=== PATIENT | male | born 1970 | race Caucasian/White ===

== ENCOUNTER 2019-06-18 04:06 | Emergency (ER) | payer OTHER ==
[2019-06-18 04:15] VITALS: BP 96/67; PULSE 64; TEMP 97.5; BMI 25.8
[2019-06-18] MEDS ORDERED: FOLIC ACID INJECTION - 1 MG, THIAMINE HCL 100 MG, MULTIVIT INJECTION ADULT 10 ML in SOD... IVPB ONE (04:49)
--- NOTE | 2019-06-18 05:01 | PDOC ---
History of Present Illness - General Chief Complaint: Alcohol intoxication Stated Complaint: INTOX Time Seen by Provider: 06/18/19 04:34 History Source: Patient Exam Limitations: No Limitations - History of Present Illness Initial Comments: 06/18/19 05:36 HPI: 48M PMH ETOH abuse, PTSD, MDD, Anxiety, Schizophrenia presenting to ED for etoh detox. Patient states he drinks about 2 pints of vodka per day for "more than a year." His last drink was 2 hours ago. Endorses K2 use tonight. Patient states he has hand tremors, nausea, headache, and mild substernal chest pain. Denies other drug use. Denies AVH/SI/HI. Requesting etoh detox and psychiatry services. PMH as above, chronic LBP MEDS: "psych meds" patient unable to name meds NKDA No PCP Homeless Past History - Past Medical History Allergies/Adverse Reactions: Allergies Allergy/AdvReac Type Severity Reaction Status Date / Time peanut Allergy Verified 06/18/19 18:27 - Psycho Social/Smoking Cessation Hx Smoking History: Current every day smoker Number of Cigarettes Smoked Daily: 8 Information on smoking cessation initiated: No Hx Alcohol Use: Yes Drug/Substance Use Hx: Yes Review of Systems - Review of Systems Able to Perform ROS?: Yes Comments:: 06/18/19 05:37 ROS: CONSTITUTIONAL: Denies F / C HEENT: Endorses headache RESP: Denies SOB, cough, orthopnea, CARNES CARD: Endorses mild substernal cp and palpitations GI: Endorses nausea. Denies V, abdominal pain, inability to tolerate PO PSYCH: Denies AVH/SI/HI NEURO: Denies numbness, tingling, weakness Is the patient limited Khmer proficient: No *Physical Exam - Vital Signs Last Vital Signs Temp Pulse Resp BP Pulse Ox 97.5 F L 64 18 96/67 98 06/18/19 04:11 06/18/19 04:11 06/18/19 04:11 06/18/19 04:11 06/18/19 04:11 - Physical Exam Comments: 06/18/19 05:37 PE: VS reviewed GEN: NAD HEENT: NC/AT, EOMI, PERRLA. CN II-XII intact. No facial asymmetry. Normal voice. No tongue fasiculations. CV: S1/S2, RRR, no m/r/g LUNG: CTAB, no wheezes, crackles, rales, rhonchi. GI: soft, ndnt, +BS, no guarding, no rebound. EXTREMITIES: No obvious deformities of all extremities. SKIN: warm, dry, normal turgor. No diaphoretic skin. PSYCH: No AVH. NEURO: Moving all extremities well. Resting tremor of b/l hands, no asterixis. ED Treatment Course - LABORATORY CBC & Chemistry Diagram: 06/18/19 04:55 06/18/19 04:55 - RADIOLOGY Radiology Studies Ordered: Category Date Time Status CHEST X-RAY PORTABLE* [RAD] Stat Radiology 06/18/19 04:49 Ordered Medical Decision Making - Medical Decision Making 06/18/19 04:51 MDM: 48M PMH etoh, schizophrenia, mdd, ptsd, anxiety requesting etoh detox. Last etoh 2 hours prior @ 2 pints vodka w/ K2. Endorsing mild chest pain. - CBC, CMP, CARDIAC - EKG, CXR - Banana bag [facility] Discharge - Discharge Information Problems reviewed: Yes Clinical Impression/Diagnosis: Alcohol abuse Condition: Stable Disposition: HOME - Admission No - Follow up/Referral - Patient Discharge Instructions Patient Printed Discharge Instructions: DI for Alcohol Abuse Additional Instructions: You were seen and treated in the Emergency Department. Please continue on to [facility] for Detox. We have arranged transportation for you. Return to the ED IMMEDIATELY if you experience any of the following: - seizures, loss of consciousness, coma - chest pain, shortness of breath - vomiting - ANYTHING that concerns you - Post Discharge Activity
[2019-06-18 05:33] LABS: BASO % 0.7 % (0-2.0); EOS % 4.6 % (0-4.5); HEMATOCRIT 44.4 % (35.4-49); HEMOGLOBIN 14.7 GM/dL (11.7-16.9); LYMPH % 20.6 % (8-40); MCH 27.8 pg (25.7-33.7); MCHC 33.1 g/dl (32.0-35.9); MEAN CELL VOLUME 84.1 fl (80-96); MEAN PLT VOLUME 7.9 fl (7.5-11.1); MONO % 7.7 % (3.8-10.2); NEUT % 66.4 % (42.8-82.8); PLATELET COUNT 383 K/MM3 (134-434); RBC 5.27 M/mm3 (4.00-5.60); RDW 17.1 % (11.9-15.9); WHITE BLOOD COUNT 8.1 K/mm3 (4.0-10.0)
[2019-06-18 06:05] LABS: ALBUMIN 3.8 g/dl (3.4-5.0); ALK PHOS 129 U/L (45-117); ANION GAP 5 MMOL/L (8-16); BILIRUBIN,TOTAL 0.4 mg/dL (0.2-1); BLOOD UREA NITROGEN 16.6 mg/dL (7-18); CALCIUM 9.6 mg/dL (8.5-10.1); CHLORIDE 104 mmol/L (98-107); CO2 30 mmol/L (21-32); CREATININE 1.1 mg/dL (0.55-1.3); GLUCOSE,RANDOM 80 mg/dL (74-106); POTASSIUM 5.5 mmol/L (3.5-5.1); SGOT/AST 24 U/L (15-37); SGPT/ALT 34 U/L (13-61); SODIUM 139 mmol/L (136-145); TOT PROT 6.8 g/dl (6.4-8.2)
--- NOTE | 2019-06-18 08:03 | PDOC ---
Attending Attestation - Resident Resident Name: EfrenJulio - ED Attending Attestation I have performed the following: I have examined & evaluated the patient, The case was reviewed & discussed with the resident, I agree w/resident's findings & plan, Exceptions are as noted - HPI HPI: 06/18/19 08:03 48M PTSD, MDD, schizophrenia, ETOH abuse, here requesting etoh detox. +nausea, -vomiting, +cp, hinojosa. No AVH, no SI, no HI. Endorses K2 and Etoh last night. Denies other toxic habits. - Physicial Exam PE: 06/18/19 08:06 Agree with exam as documented by resident No tongue fasiculation No asterixis - Medical Decision Making 06/18/19 08:08 For etoh detox, f/u labs ekg, cxr [facility] [place]
--- NOTE | 2019-06-18 12:42 | EKG ---
Test Reason : Blood Pressure : / mmHG Vent. Rate : 060 BPM Atrial Rate : 060 BPM P-R Int : 140 ms QRS Dur : 090 ms QT Int : 416 ms P-R-T Axes : 035 042 033 degrees QTc Int : 416 ms NORMAL SINUS RHYTHM NORMAL ECG NO PREVIOUS ECGS AVAILABLE Confirmed by JESSICA PLAZA MD ([id number]) on 06/18/2019 12:41:49 PM Referred By: Confirmed By:JESSICA PLAZA MD
== END 2019-06-18 09:26 | disposition home or self-care (01) ==
LOC: JER 04:06
PROC: 3E033GC Introduction of Other Therapeutic Substance into Peripheral Vein, Percutaneous Approach (ICD-10-PCS; principal; 2019-06-18)
DX: F12.90 Cannabis use, unspecified, uncomplicated (principal); F10.10 Alcohol abuse, uncomplicated; Z91.010 Allergy to peanuts; F43.10 Post-traumatic stress disorder, unspecified; F32.9 Major depressive disorder, single episode, unspecified; F20.9 Schizophrenia, unspecified; F17.210 Nicotine dependence, cigarettes, uncomplicated
CPT/HCPCS: 36415; 71045-TC-FY; 80053; 82550; 82553; 84484; 85025; 93005; 93010; 96374; 99283-25; J7030

== ENCOUNTER 2019-06-18 18:14 | Emergency (ER) | payer OTHER ==
--- NOTE | 2019-06-18 18:25 | PDOC ---
Rapid Medical Evaluation Time Seen by Provider: 06/18/19 18:24 Medical Evaluation: Allergies Allergy/AdvReac Type Severity Reaction Status Date / Time peanut Allergy Verified 06/18/19 04:15 06/18/19 18:24 I have performed a brief in-person evaluation of this patient. The patient presents with a chief complaint of: chest pain which started after using K2 and cocaine half an hour ago. Also wants detox for alcohol, drink 5 pints vodka a day. I have ordered the following: EKG, CXR, labs including cardiac enzymes The patient will proceed to the ED for further evaluation. Discharge Disposition - Diagnosis Chest pain - Referrals - Patient Instructions - Post Discharge Activity
[2019-06-18 18:26] VITALS: BMI 26.6
[2019-06-18 19:17] LABS: BASO % 0.4 % (0-2.0); EOS % 3.9 % (0-4.5); HEMATOCRIT 40.9 % (35.4-49); HEMOGLOBIN 13.3 GM/dL (11.7-16.9); LYMPH % 21.7 % (8-40); MCH 27.5 pg (25.7-33.7); MCHC 32.5 g/dl (32.0-35.9); MEAN CELL VOLUME 84.5 fl (80-96); MEAN PLT VOLUME 8.1 fl (7.5-11.1); MONO % 9.9 % (3.8-10.2); NEUT % 64.1 % (42.8-82.8); PLATELET COUNT 347 K/MM3 (134-434); RBC 4.84 M/mm3 (4.00-5.60); RDW 16.9 % (11.9-15.9); WHITE BLOOD COUNT 7.6 K/mm3 (4.0-10.0)
[2019-06-18] MEDS ORDERED: FAMOTIDINE 20 MG/50 ML IVPB 20 MG in PREMIX 50 IVPB ONE (19:21)
[2019-06-18] MEDS ORDERED: SODIUM CHLORIDE 1,000 ML IV ONE (19:21)
[2019-06-18] MEDS ORDERED: MAG HYDROX/AL HYDROX/SIMETH -MYLANTA- ORAL SUSPENSION PO ONE (19:21)
--- NOTE | 2019-06-18 19:23 | PDOC ---
History of Present Illness - General Chief Complaint: Chest Pain Stated Complaint: SUBSTANCE ABUSE/DETOX Time Seen by Provider: 06/18/19 18:24 History Source: Patient Exam Limitations: No Limitations - History of Present Illness Initial Comments: 06/18/19 20:20 Rhett Auguste is a 48yM w PMHx substance abuse (ETOH, marijuana, cocaine, K2) , PTSD, MDD, anxiety, schizophrenia presenting w chest pain. Had sudden onset midsternal chest and epigastric pain at 5pm, 1hr after taking alcohol and marijuana this afternoon. Also asking for hospital detox. Was seen in the ED this morning after taking alcohol K2 cocaine asking for detox, d/c after negative cardiac workup. Denies fever, cough, SOB, nausea/vomiting, urinary/ bowel movement changes. Past History - Past Medical History Allergies/Adverse Reactions: Allergies Allergy/AdvReac Type Severity Reaction Status Date / Time peanut Allergy Verified 06/18/19 18:27 COPD: No Other medical history: CHRONIC BACK PAIN - Psycho Social/Smoking Cessation Hx Smoking History: Current every day smoker Number of Cigarettes Smoked Daily: 20 Information on smoking cessation initiated: No Hx Alcohol Use: Yes (TODAY) Drug/Substance Use Hx: Yes (TODAY) Review of Systems - Review of Systems Constitutional: No: Chills, Fever HEENTM: No: Eye Pain, Recent change in vision, Nose Pain, Throat Pain, Mouth Pain Respiratory: No: Cough, Shortness of Breath Cardiac (ROS): Yes: Chest Pain. No: Edema, Palpitations, Syncope ABD/GI: No: Abdominal Distended, Constipated, Diarrhea, Nausea, Vomiting : No: Burning, Dysuria, Discharge, Flank Pain, Hematuria Musculoskeletal: No: Back Pain, Joint Pain, Muscle Weakness Integumentary: No: Bruising, Flushing, Lesions Neurological: No: Headache, Seizure, Tingling Psychiatric: No: Anxiety, Depression, Stressors Endocrine: No: Excessive Sweating, Flushing, Intolerance to Cold, Intolerance to Heat Hematologic/Lymphatic: No: Anemia, Blood Clots *Physical Exam - Vital Signs Last Vital Signs Temp Pulse Resp BP Pulse Ox 98.2 F 70 16 90/52 L 97 06/18/19 18:23 06/18/19 18:23 06/18/19 18:23 06/18/19 18:23 06/18/19 18:23 - Physical Exam General Appearance: Yes: Nourished, Appropriately Dressed, Mild Distress HEENT: positive: EOMI, AMARIS, Normal Voice, Hearing Grossly Normal. negative: Scleral Icterus (R), Scleral Icterus (L), Nasal Congestion, Rhinorrhea Respiratory/Chest: positive: Lungs Clear, Normal Breath Sounds. negative: Chest Tender, Respiratory Distress, Crackles, Rales, Rhonchi, Stridor, Wheezing Cardiovascular: positive: Regular Rhythm, Regular Rate, S1, S2. negative: Edema , Murmur Gastrointestinal/Abdominal: positive: Normal Bowel Sounds, Flat, Soft. negative : Tender, Organomegaly Musculoskeletal: negative: CVA Tenderness (R), CVA Tenderness (L) Integumentary: positive: Normal Color Neurologic: positive: chili pepper grinder II-XII NML intact, Fully Oriented, Alert, Normal Mood/ Affect, Normal Response, Responsive. negative: Sensory Deficit, Confused, Disoriented ED Treatment Course - LABORATORY CBC & Chemistry Diagram: 06/18/19 18:45 06/18/19 18:45 - ADDITIONAL ORDERS Additional order review: 06/18/19 18:45 RBC 4.84 MCV 84.5 MCHC 32.5 RDW 16.9 H MPV 8.1 Neutrophils % 64.1 Lymphocytes % 21.7 Monocytes % 9.9 Eosinophils % 3.9 Basophils % 0.4 Medical Decision Making - Medical Decision Making 06/18/19 19:23 Ordered pepcid maalox NS. Pt refused IV insertion and IV meds, only took maalox which resolved pain CXR clear lung delgadillo EKG shows NSR, HR 69, QTc 424, no ST changes CBC CMP lipase normal, neg trop --- Rhett Auguste is a 48yM w PMHx substance abuse (ETOH, marijuana, cocaine, K2) , PTSD, MDD, anxiety, schizophrenia presenting w midsternal chest and epigastric pain likely d/t alcoholic gastritis. No evidence of ACS (neg trop, NSR EKG) or pancreatitis (normal lipase) or pneumonia (clear lungs on CXR) or alcohol withdrawal (not tremulous or GI discomfort). Pt refused IV for 2nd trop and IV meds, only took maalox which resolved pain. D/c home w detox instructions Discharge - Discharge Information Problems reviewed: Yes Clinical Impression/Diagnosis: Alcoholic gastritis Qualifiers: Chronicity: acute Gastritis bleeding: without bleeding Qualified Code(s): K29.20 - Alcoholic gastritis without bleeding Condition: Improved Disposition: HOME - Admission No - Follow up/Referral Referrals: REGGIE CLAY MD [Staff Physician] - - Patient Discharge Instructions Patient Printed Discharge Instructions: DI for Chest Pain Additional Instructions: You were seen for chest pain. Your labs and imaging did not show anything concerning. You were given medication for your pain. Please follow up with the referred primary care doctor and detox places listed below regarding your visit. Do not drink large amounts of alcohol Come back to the ED if you have worsening chest pain, trouble breathing, or vomiting blood. --- Detox Places: [address] [address] [facility] [address] [address] 24 Hour Facility [phone] Directions Located on the corner of [address] [employer]ops [address] Stops Subway Train Lines A, C, B, D, 1 at [facility] N, R, Q at [facility] Bus Lines M57, M31, M11 [facility] [address] [address] Hours of Operation 9 a.m. - 8 p.m. [facility] is a Sub[facility] Abuse Re[facility] Services in [place], [place] Address: [address] [place] [address], [address] Intake Line: [phone] Website: [email or web address] Primary Focus: Substance Abuse Rehab Services Treatment Type: Hospital inpatient, Hospital inpatient detoxification, General Hospital(including [place] [facility]) Treatment Approaches: No information available, please contact the facility directly. [facility] located in [place], [place]. Address: [address] [place] [address] , [id number] - Post Discharge Activity
[2019-06-18] MEDS ORDERED: KETOROLAC TROMETHAMINE 30 MG/1 ML VIAL IVPUSH ONE (19:36)
[2019-06-18] MEDS ORDERED: FAMOTIDINE 20 MG/50 ML IVPB 20 MG/50 ML MG IVPB ONE (19:49)
[2019-06-18] MEDS ORDERED: MAG HYDROX/AL HYDROX/SIMETH 30 ML UNIT-DOSE CUP ONE (19:49)
[2019-06-18] MEDS ORDERED: KETOROLAC TROMETHAMINE 30 MG/1 ML VIAL ONE (19:49)
[2019-06-18 19:50] LABS: ALBUMIN 3.3 g/dl (3.4-5.0); ALK PHOS 117 U/L (45-117); ANION GAP 6 MMOL/L (8-16); BILIRUBIN,TOTAL 0.2 mg/dL (0.2-1); CALCIUM 8.6 mg/dL (8.5-10.1); CHLORIDE 107 mmol/L (98-107); CO2 28 mmol/L (21-32); CREATININE 1.1 mg/dL (0.55-1.3); GLUCOSE,RANDOM 75 mg/dL (74-106); LIPASE 194 U/L (73-393); POTASSIUM 4.6 mmol/L (3.5-5.1); SGOT/AST 22 U/L (15-37); SGPT/ALT 29 U/L (13-61); SODIUM 142 mmol/L (136-145); TOT PROT 6.2 g/dl (6.4-8.2)
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
[2019-06-18 22:26] VITALS: BP 102/58; PULSE 86; TEMP 98.1
--- NOTE | 2019-06-19 20:21 | EKG ---
Test Reason : Blood Pressure : / mmHG Vent. Rate : 069 BPM Atrial Rate : 069 BPM P-R Int : 136 ms QRS Dur : 082 ms QT Int : 396 ms P-R-T Axes : 045 020 028 degrees QTc Int : 424 ms NORMAL SINUS RHYTHM NORMAL ECG WHEN COMPARED WITH ECG OF 18-JUN-2019 06:53, NO SIGNIFICANT CHANGE WAS FOUND Confirmed by MD GALINDO, SEDRICK ([id number]) on 06/19/2019 8:21:11 PM Referred By: Confirmed By:SEDRICK MEDLEY MD
== END 2019-06-18 22:20 | disposition home or self-care (01) ==
LOC: JER 18:14
DX: F10.10 Alcohol abuse, uncomplicated (principal); F12.90 Cannabis use, unspecified, uncomplicated; F20.9 Schizophrenia, unspecified; F43.10 Post-traumatic stress disorder, unspecified; F32.9 Major depressive disorder, single episode, unspecified; F41.9 Anxiety disorder, unspecified; F17.210 Nicotine dependence, cigarettes, uncomplicated; Z91.010 Allergy to peanuts
CPT/HCPCS: 36415; 71045-TC-FY; 80053; 82550; 82553; 83690; 84484; 85025; 93005; 93010; 96374; 99283-25; J7030

== ENCOUNTER 2019-06-23 07:17 | Emergency (ER) | payer OTHER ==
[2019-06-23 07:32] VITALS: TEMP 98; BMI 25.7
[2019-06-23 08:52] LABS: BASO % 0.5 % (0-2.0); EOS % 4.6 % (0-4.5); LYMPH % 21.2 % (8-40); MCH 27.4 pg (25.7-33.7); MCHC 32.5 g/dl (32.0-35.9); MEAN CELL VOLUME 84.5 fl (80-96); MEAN PLT VOLUME 8.2 fl (7.5-11.1); NEUT % 66.7 % (42.8-82.8); PLATELET COUNT 336 K/MM3 (134-434); RBC 5.09 M/mm3 (4.00-5.60); WHITE BLOOD COUNT 7.1 K/mm3 (4.0-10.0)
[2019-06-23 09:14] LABS: INR 1.11 (0.83-1.09); PROTHROMBIN TIME (PATIENT) 13.1 SEC (9.7-13.0)
[2019-06-23 09:28] LABS: ALBUMIN 3.6 g/dl (3.4-5.0); ALK PHOS 109 U/L (45-117); ANION GAP 7 MMOL/L (8-16); BILIRUBIN,TOTAL 0.3 mg/dL (0.2-1); BLOOD UREA NITROGEN 12.2 mg/dL (7-18); CALCIUM 9.3 mg/dL (8.5-10.1); CHLORIDE 106 mmol/L (98-107); CO2 31 mmol/L (21-32); GLUCOSE,RANDOM 71 mg/dL (74-106); POTASSIUM 4.4 mmol/L (3.5-5.1); SGOT/AST 23 U/L (15-37); SGPT/ALT 41 U/L (13-61); SODIUM 143 mmol/L (136-145); TOT PROT 6.6 g/dl (6.4-8.2)
--- NOTE | 2019-06-23 10:03 | CON.PSY ---
Psychiatry Consult Chief Complaint: 48 Yr old Male came to Er from [facility] where he weas evaluated by Psych and discharged. Patient said he was suicidal but no plans. Patient is sleeping in the Bed. awake and responds . Denies any suicid al ideas or plans. - Previous Psychiatric Treatment Outpatient: Less than 6 mos ago Inpatient: Within the last 12 months - Reason for Previous Treatment Reason for Previous Treatment: Conduct Disorder - Allergies Allergies: Allergies Allergy/AdvReac Type Severity Reaction Status Date / Time Fish Containing Products Allergy Verified 06/23/19 07:30 peanut Allergy Verified 06/18/19 18:27 pepper (genus Capsicum) Allergy Verified 06/23/19 07:30 - Current Living Status Usual Living Arrangement: Alone - Current Mental Status Evaluation Appearance: Well Groomed Attitude: Cooperative - Affect Affect: Constrictive Appropriateness: Appropriate to Content - Mood Mood: Euthymic - Speech/Language Expressive: Coherent - Psychomotor Activity Psychomotor Activity: Normal - Thought Process Thought Process: Intact - Thought Content Hallucinations: Absent Delusions: Absent - Self Perception Self Perception: No Impairment - Cognition Attention: Alert Orientation: Time Memory, Immediate Recall: Intact Memory, Short Term: 2/3 Memory, Remote with Promptin/3 - Abstraction Proverb Interpretation: Intact Judgement: Minimally Impaired - Insight Insight: Intact - Impulse Control Impulse Control: Good Control - Suicidal Ideation Suicidal Ideation: No - Homicidal Ideation Homicidal Ideation: No Assessment/Plan 1) No acute Mental illness. 2) d/c from Er. no follow up.
[2019-06-23 11:19] VITALS: BP 133/91; PULSE 83
--- NOTE | 2019-06-23 11:35 | PDOC ---
Documentation entered by Ida Zapata SCRIBE, acting as scribe for Jordan Ribeiro MD. History of Present Illness - General Chief Complaint: Suicidal Stated Complaint: SUICIDAL IDEATIONS, wants detox History Source: Patient Exam Limitations: No Limitations - History of Present Illness Initial Comments: Patient seen and evaluated immediately upon arrival. Patient is a 48-year-old male with history of polysubstance abuse and depression who presents to the ER stating that he is suicidal. Patient states that he feels on the inside like he was hit by a bus but denies any previous attempts. Patient states that he does cocaine and drinks heavily on the regular basis. Patient states that he drank a large amount of alcohol several hours prior to evaluation. Patient also was seen at [facility] and was evaluated by psychiatrist shortly prior to presentation at [facility]. Patient was evaluated and discharged without any restrictions or prescriptions. Past History - Past Medical History Allergies/Adverse Reactions: Allergies Fish Containing Products Allergy (Verified 06/23/19 07:30) peanut Allergy (Verified 06/18/19 18:27) pepper (genus Capsicum) Allergy (Verified 06/23/19 07:30) Home Medications: Ambulatory Orders NK [No Known Home Medication] 06/23/19 - Social History Smoking Status: Current every day smoker Number of Cigarettes Per Day: 20 *Physical Exam - Vital Signs Last Vital Signs Temp Pulse Resp BP Pulse Ox 98 F 89 18 104/58 L 99 06/23/19 07:27 06/23/19 07:27 06/23/19 07:27 06/23/19 07:27 06/23/19 07:27 - Physical Exam Comments: 06/23/19 11:31 REVIEW OF SYSTEMS CONSTITUTIONAL: No fever, no chills, no fatigue EYES: No visual changes ENT: No ear pain, no sore throat CARDIOVASCULAR: No chest pain, no palpitations RESPIRATORY: No cough, no SOB GI: No abdominal pain, no nausea, no vomiting, no constipation, no diarrhea GENITOURINARY: No dysuria, no frequency, no hematuria MUSKULOSKELETAL: No backpain, no joint pain, no myalgias SKIN: No rash NEURO: No headache PSYCH: + depression, suicidal EXAMINATION CONSTITUTIONAL: Patient is sleeping in the ER, easily arousable to verbal stimuli, follows commands; in no apparent distress; + aob HEAD: Normocephalic; atraumatic EYES: PERRL; EOM intact; + conjunctiva injected ENMT: External appears normal; normal oropharynx NECK: Supple; non-tender; no cervical lymphadenopathy CARD: Normal S1, S2; no murmurs, rubs, or gallops RESP: Normal chest excursion with respiration; breath sounds clear and equal bilaterally; no wheezes, rhonchi, or rales ABD: Soft, non-distended; non-tender; no palpable organomegaly, no palpable hernias EXT: Normal ROM in all four extremities; non-tender to palpation; distal pulses intact SKIN: Warm, dry, no rash NEURO: No focal neurological deficiencies. PSYCH: evasive, appropriate mood and effect; no tangential thinking, denies suicidal ideations on exam. Plan - Progress Note Progress Note: 06/23/19 11:34 48-year-old male with history of polysubstance abuse and depression initially presented with suicidal ideations. Patient seen and evaluated by Dr. wagner. psychiatry. Patient cleared for discharge. No acute issues present at this time. Patient wanted a place to stay and sleep as per the patient. Will discharge. - Order(s) Order(s): Orders Medication Instructions Recorded NK [No Known Home Medication] 06/23/19 - Laboratory CBC & Chemistry Diagram: 06/23/19 08:35 06/23/19 08:35 Lab/Micro Results: 06/23/19 06/23/19 06/23/19 08:35 08:35 08:35 PT with INR 13.10 H INR 1.11 H Sodium 143 Potassium 4.4 Chloride 106 Carbon Dioxide 31 Anion Gap 7 L BUN 12.2 Creatinine 1.0 Est GFR (CKD-EPI)AfAm 101.26 Est GFR (CKD-EPI)NonAf 87.37 POC Glucometer Random Glucose 71 L Calcium 9.3 Total Bilirubin 0.3 AST 23 ALT 41 Alkaline Phosphatase 109 Creatine Kinase 138 Troponin I < 0.02 Total Protein 6.6 Albumin 3.6 Salicylates Acetaminophen Alcohol, Quantitative 65.5 H 06/23/19 06/23/19 06/23/19 08:35 08:35 08:04 PT with INR INR Sodium Potassium Chloride Carbon Dioxide Anion Gap BUN Creatinine Est GFR (CKD-EPI)AfAm Est GFR (CKD-EPI)NonAf POC Glucometer 97 Random Glucose Calcium Total Bilirubin AST ALT Alkaline Phosphatase Creatine Kinase Troponin I Total Protein Albumin Salicylates < 1.7 L Acetaminophen <2.0 Alcohol, Quantitative 06/23/19 06/23/19 08:35 08:04 RBC 5.09 MCV 84.5 MCHC 32.5 RDW 17.0 H MPV 8.2 Neutrophils % 66.7 Lymphocytes % 21.2 Monocytes % 7.0 Eosinophils % 4.6 H Basophils % 0.5 POC Glucometer 97 Jordan Ribeiro MD: This documentation has been prepared by the Benny cadet Sammi, SCRIBE, under my direction and personally reviewed by me in its entirety. I confirm that the documentation accurately reflects all work, treatment, procedures, and medical decision making performed by me.
--- NOTE | 2019-06-23 11:37 | PDOC ---
*Physical Exam - Vital Signs Last Vital Signs Temp Pulse Resp BP Pulse Ox 98 F 83 18 133/91 96 06/23/19 07:27 06/23/19 11:18 06/23/19 11:18 06/23/19 11:18 06/23/19 11:18 ED Treatment Course - LABORATORY CBC & Chemistry Diagram: 06/23/19 08:35 06/23/19 08:35 - ADDITIONAL ORDERS Additional order review: Laboratory Results 06/23/19 06/23/19 06/23/19 08:35 08:35 08:35 PT with INR 13.10 H INR 1.11 H Sodium 143 Potassium 4.4 Chloride 106 Carbon Dioxide 31 Anion Gap 7 L BUN 12.2 Creatinine 1.0 Est GFR (CKD-EPI)AfAm 101.26 Est GFR (CKD-EPI)NonAf 87.37 POC Glucometer Random Glucose 71 L Calcium 9.3 Total Bilirubin 0.3 AST 23 ALT 41 Alkaline Phosphatase 109 Creatine Kinase 138 Troponin I < 0.02 Total Protein 6.6 Albumin 3.6 Salicylates Acetaminophen Alcohol, Quantitative 65.5 H 06/23/19 06/23/19 06/23/19 08:35 08:35 08:04 PT with INR INR Sodium Potassium Chloride Carbon Dioxide Anion Gap BUN Creatinine Est GFR (CKD-EPI)AfAm Est GFR (CKD-EPI)NonAf POC Glucometer 97 Random Glucose Calcium Total Bilirubin AST ALT Alkaline Phosphatase Creatine Kinase Troponin I Total Protein Albumin Salicylates < 1.7 L Acetaminophen <2.0 Alcohol, Quantitative 06/23/19 06/23/19 08:35 08:04 RBC 5.09 MCV 84.5 MCHC 32.5 RDW 17.0 H MPV 8.2 Neutrophils % 66.7 Lymphocytes % 21.2 Monocytes % 7.0 Eosinophils % 4.6 H Basophils % 0.5 POC Glucometer 97 Discharge - Discharge Information Problems reviewed: Yes Clinical Impression/Diagnosis: Alcohol abuse, Cocaine abuse Depression Qualifiers: Depression Type: unspecified Qualified Code(s): F32.9 - Major depressive disorder, single episode, unspecified Disposition: HOME - Follow up/Referral Referrals: Yanely Morales MD [Staff Physician] - - Patient Discharge Instructions Patient Printed Discharge Instructions: DI for Depression -- Adult, Substance Use Disorder
== END 2019-06-23 12:40 | disposition home or self-care (01) ==
LOC: JER 07:17
DX: F32.9 Major depressive disorder, single episode, unspecified (principal); F10.10 Alcohol abuse, uncomplicated; F14.90 Cocaine use, unspecified, uncomplicated; Z91.013 Allergy to seafood; Z91.010 Allergy to peanuts; Z91.018 Allergy to other foods
CPT/HCPCS: 36415; 80053; 80307; 82550; 82962; 84484; 85025; 85610; 99282-25

== ENCOUNTER 2019-07-12 08:07 | Inpatient (IN) | payer OTHER ==
[2019-07-12 08:57] VITALS: BMI 30.3
[2019-07-12] MEDS ORDERED: guaiFENesin 200 MG/10 ML 10 ML UNIT-DOSE CUPS PO PRN (10:07)
[2019-07-12] MEDS ORDERED: P-EPHED 60MG/TRIPROLIDI 2.5MG TABLET PO PRN (10:07)
[2019-07-12] MEDS ORDERED: MAGNESIUM HYDROX 2400MG/30ML ORAL SUSPENSION 30 ML CUP PO PRN (10:10)
[2019-07-12] MEDS ORDERED: NICOTINE POLACRILEX 4 MG GUM BC PRN (10:10)
[2019-07-12] MEDS ORDERED: METHOCARBAMOL 500 MG TABLET PO PRN (10:10)
[2019-07-12] MEDS ORDERED: MENTHOL/PHENOL 1 EACH UD MM PRN (10:10)
[2019-07-12] MEDS ORDERED: chlordiazePOXIDE HCL 25 MG CAPSULE PO PRN (10:10)
[2019-07-12] MEDS ORDERED: ACETAMINOPHEN 325 MG TABLET (FP) PO PRN ×2 (10:10)
[2019-07-12] MEDS ORDERED: MAG HYDROX/AL HYDROX/SIMETH 30 ML UNIT-DOSE CUP PO PRN (10:10)
[2019-07-12] MEDS ORDERED: BISMUTH SUBSALICYLATE 524 MG/30 ML UD PO PRN (10:10)
[2019-07-12] MEDS ORDERED: MAGNESIUM CITRATE 300 ML BOTTLE PO PRN (10:10)
[2019-07-12] MEDS ORDERED: IBUPROFEN 400 MG TABLET (FP) PO PRN (10:10)
[2019-07-12] MEDS ORDERED: hydrOXYzine PAMOATE 25 MG CAPSULE (FP) PO PRN ×2 (10:10)
[2019-07-12] MEDS ORDERED: MELATONIN 5 MG TABLETS PO PRN (10:10)
[2019-07-12] MEDS: chlordiazePOXIDE HCL 25 MG CAPSULE PO SCH ×3 (11:37→22:49)
[2019-07-12] MEDS ORDERED: THIAMINE HCL 100 MG TABLET (FP) PO SCH (22:00)
[2019-07-13] MEDS: chlordiazePOXIDE HCL 25 MG CAPSULE PO SCH ×2 (06:14→11:08)
[2019-07-13 09:47] VITALS: BP 119/79; PULSE 86; TEMP 99.1
[2019-07-13] MEDS ORDERED: PRENATAL VITAMINS W/ FOLIC ACID TABLET (FP) PO SCH (10:00)
--- NOTE | 2019-07-13 11:37 | PN ---
[facility] Progress Note Note: Psychiatry Attending's note : First admission to [facility] for this 48 y/o male. Presenting for detoxification treatment. STEPHEN issues : Heroin, cannabis (K2), PCP, crack/cocaine, alcohol, nicotine. Psychiatric co-morbidities : Schizophrenia, PTSD, Bipolar Disorder (self-report) . Mr Auguste is , father of two, homeless, unemployed and deprived of financial assistance. He admits to a history of multiple psychiatric hospitalizations (facilities in [place], [facility]). No recent history of psychiatric OPD care. Patient claims treatment with bupropion, thorazine, clonazepam, trazodone. Has been lost to follow-up for months. " I have not seen a psychiatrist for a long time." Adherence to medications remains highly questionable. Patient got into a verbal altercation with his roommate this morning. Situation escalated. He is heard threatening his roommate with bodily harm. Got louder, more disruptive, argumentative and disorganized. Threatened to destroy property on the unit. Refuses to follow staff redirections. Mr Auguste extended his threats toward staff. Patient stated that staff is against him, that he does not feel " safe " on the unit. Hypervigilant. Not receptive to any measures of de-escalation. Belligerent, agitated, accusatory and intimidating during psychiatric interview. Refused care. Patient ended interview abruptly, dismissed the psychiatrist and left the office. Continued to escalate in the corridors. Yelling and pacing. Mr Auguste is acutely paranoid, refractory to redirections and incoherent. Psychiatrically unstable. Needs a higher level of psychiatric care. Cannot be managed at [facility]. Contact made, via telephone, with tan room supervisor Leanne, at [facility]. Case discussed. Conversion to 2 PC status. 911 services activated. Tylor GRAVES responded. Patient transferred to [facility] ED (psychiatry section). For evaluation and disposition. Discussed with the Multidisciplinary treatment team at [address] [place] [address] ([facility]).
--- NOTE | 2019-07-13 15:12 | PN ---
[facility] Progress Note (SOAP) Subjective: verbal altercation with roommate threatening to kill roommate aggressive poor boundary disorganization paranoid "I have to defend myself" threatening toward staff Objective: 07/13/19 15:10 disorganized incoherent rapid labile mood 07/13/19 15:15 crying episodes feels sad empty and hopeless that "was taking medications" but stop tearful with irritable mood rapid psychomotor agitation alter with retardation burst of energy alter with sad tearful gesture poor ability on self control and poor concentration not able to carry conversation with staff threatening staff verbally stated to kill self without specific plan patient appears clinically under significant distress poor functioning in the detox unit to rule out substance induced psychosis psychiatrist evaluation interdisciplinary team approach [facility] evaluation Assessment: 07/13/19 15:28 benzo withdrawal sx management rule out psychosis NOS Plan: transferred to [facility] for psychiatric evaluation by doctor Ray
[2019-07-14] MEDS ORDERED: chlordiazePOXIDE HCL 25 MG CAPSULE PO SCH (05:00)
[2019-07-15] MEDS ORDERED: chlordiazePOXIDE HCL 10 MG CAPSULE PO PRN
[2019-07-15] MEDS ORDERED: chlordiazePOXIDE HCL 10 MG CAPSULE PO SCH (05:00)
[2019-07-16] MEDS ORDERED: chlordiazePOXIDE HCL 10 MG CAPSULE PO SCH (05:00)
[2019-07-17] MEDS ORDERED: chlordiazePOXIDE HCL 10 MG CAPSULE PO ONE (05:00)
== END 2019-07-13 11:30 | DRG 773 ==
LOC: YASAS 08:07 → Y3N 09:37
PROVIDERS: ADMIT Allergy & Immunology; ATTEND Allergy & Immunology
PROC: HZ2ZZZZ Detoxification Services for Substance Abuse Treatment (ICD-10-PCS; principal; 2019-07-12)
DX: F13.20 Sedative, hypnotic or anxiolytic dependence, uncomplicated (principal); F10.10 Alcohol abuse, uncomplicated; F11.10 Opioid abuse, uncomplicated; F14.10 Cocaine abuse, uncomplicated; F12.10 Cannabis abuse, uncomplicated; Z72.0 Tobacco use; F31.9 Bipolar disorder, unspecified; F20.9 Schizophrenia, unspecified; F43.10 Post-traumatic stress disorder, unspecified; Z91.013 Allergy to seafood; Z91.018 Allergy to other foods; Z59.0 Homelessness
CPT/HCPCS: 36415; 80053; 85027; 86593

== ENCOUNTER 2019-10-05 17:23 | Inpatient (IN) | payer OTHER ==
[2019-10-05 21:09] VITALS: BMI 31.2
[2019-10-05] MEDS ORDERED: MELATONIN 5 MG TABLETS PO PRN (22:00)
--- NOTE | 2019-10-05 23:31 | HP ---
CIWA Score - Admission Criteria OASAS Guidelines: Admission for Medically Managed Detox: Requires at least one of the followin. CIWA greater than 12 2. Seizures within the past 24 hours 3. Delirium tremens within the past 24 hours 4. Hallucinations within the past 24 hours 5. Acute intervention needed for co occurring medical disorder 6. Acute intervention needed for co occurring psychiatric disorder 7. Severe withdrawal that cannot be handled at a lower level of care (continued vomiting, continued diarrhea, abnormal vital signs) requiring intravenous medication and/or fluids 8. Admitting History and Physical - Smoking History Smoking history: Current every day smoker Have you smoked in the past 12 months: No Aproximately how many cigarettes per day: 20 - Alcohol/Substance Use Hx Alcohol Use: Yes Admission ROS [facility] Chief Complaint: transfer form [facility] for rehab txment. Allergies/Adverse Reactions: Allergies Allergy/AdvReac Type Severity Reaction Status Date / Time Fish Containing Products Allergy Verified 10/10/19 00:06 No Known Drug Allergies Allergy Verified 10/10/19 00:06 peanut Allergy Verified 10/10/19 00:06 pepper (genus Capsicum) Allergy Verified 10/10/19 00:06 History of Present Illness: HERE FOR REHAB TXMENT FOR ALCOHOL AND CRACK/COCAINE ABUSE.AFTER HOSPITALIZATION AT [facility] FOR THE LAST 3 WEEKS. CLIENT WAS ADMITTED THER ON AND DC 10/04/19. HE WAS TREATED FOR MDD AMONG OTHER MENTAL HEALTH D/O. WHILE THERE HE WAS DETOXED FROM ALCOHOL. HE IS ALSO ON SBX MGMT. 8/MG DAILY. LDM TODAY. DENIES HX/O WITHDRAWAL SEIZURES, BLACKOUTS, DRUG OVERDOSE, AVH. HOMELESS, UNEMPLOYED. DENIES LEGALS Exam Limitations: No Limitations - Ebola screening Have you traveled outside of the country in the last 21 days: No Have you had contact with anyone from an Ebola affected area: No Have you been sick,other than usual withdrawal symptoms: No Do you have a fever: No - Review of Systems Constitutional: No Symptoms Reported EENT: reports: No Symptoms Reported Respiratory: reports: No Symptoms reported Cardiac: reports: No Symptoms Reported GI: reports: No Symptoms Reported : reports: No Symptoms Reported Musculoskeletal: reports: No Symptoms Reported Integumentary: reports: No Symptoms Reported Neuro: reports: No Symptoms reported Endocrine: reports: No Symptoms Reported Hematology: reports: No Symptoms Reported Psychiatric: reports: Orientated x3, Depressed (DENIES SI) Other Systems: Reviewed and Negative Patient History - Patient Medical History Hx Anemia: No Hx Asthma: No Hx Chronic Obstructive Pulmonary Disease (COPD): No Hx Cancer: No Hx Cardiac Disorders: No Hx Congestive Heart Failure: No Hx Hypertension: No Hx Hypercholesterolemia: No Hx Pacemaker: No HX Cerebrovascular Accident: No Hx Seizures: No Hx Dementia: No Hx Diabetes: No Hx Gastrointestinal Disorders: No Hx Liver Disease: No Hx Genitourinary Disorders: No Hx Sexually Transmitted Disorders: No Hx Renal Disease (ESRD): No Hx Thyroid Disease: No Hx Human Immunodeficiency Virus (HIV): No Hx Hepatitis C: No Hx Depression: Yes Hx Suicide Attempt: No Hx Bipolar Disorder: Yes Hx Schizophrenia: Yes Other Medical History: PTSD - Patient Surgical History Past Surgical History: No Hx Neurologic Surgery: No Hx Cataract Extraction: No Hx Cardiac Surgery: No Hx Lung Surgery: No Hx Breast Surgery: No Hx Breast Biopsy: No Hx Abdominal Surgery: No Hx Appendectomy: No Hx Cholecystectomy: No Anesthesia Reaction: No - PPD History Previous Implant?: Yes Documented Results: Negative w/o proof Implanted On Prior R Admission?: No PPD to be Administered?: Yes - Smoking Cessation Smoking history: Current every day smoker Have you smoked in the past 12 months: No Aproximately how many cigarettes per day: 5 Cigars Per Day: 0 Hx Chewing Tobacco Use: No Initiated information on smoking cessation: Yes 'Breaking Loose' booklet given: 10/05/19 - Substance & Tx. History Hx Alcohol Use: Yes Hx Substance Use: Yes Substance Use Type: Alcohol, Cocaine, Prescribed (SBX) Hx Substance Use Treatment: Yes ([facility]) - Substances abused Alcohol Substance route: Oral Frequency: Daily Amount used: 5 pints vodka/ 30 CANS 16 OZ BEER Age of first use: 9 Date of last use: 10/04/19 (AFTER 3 WEEKS CLEAN) Cocaine Other (specify): crack Substance route: Smoking Frequency: Daily Amount used: 30 dollars Age of first use: 13 Date of last use: 10/04/19 (AFTER 3 WEEK CLEAN) Admission Physical Exam [facility] - Vital Signs Vital Signs: Vital Signs - 24 hr 10/05/19 20:40 Temperature 97.0 F L Pulse Rate 85 Respiratory 16 Rate Blood Pressure 112/75 - Physical General Appearance: Yes: Mild Distress, Tremorous, Anxious HEENTM: Yes: EOMI, Normocephalic, Normal Voice, AMARIS, Pharynx Normal, Nasal Congestion Respiratory: Yes: Chest Non-Tender, Lungs Clear, Normal Breath Sounds, No Respiratory Distress, No Accessory Muscle Use Neck: Yes: No masses,lesions,Nodules, Supple, Trachea in good position Breast: Yes: Breasts Symetrical Cardiology: Yes: Regular Rhythm, Regular Rate, S1, S2 Abdominal: Yes: Normal Bowel Sounds, Non Tender, Soft, Protuberent Genitourinary: Yes: Within Normal Limits Back: Yes: Normal Inspection Musculoskeletal: Yes: full range of Motion, Gait Steady Extremities: Yes: Normal Range of Motion, Non-Tender, Tremors Neurological: Yes: Fully Oriented, Alert, Motor Strength 5/5, Depressed Affect Integumentary: Yes: Clammy Lymphatic: Yes: Within Normal Limits - Diagnostic (1) Alcohol dependence, uncomplicated Status: Acute (2) Cocaine dependence, uncomplicated Status: Acute (3) Nicotine dependence Status: Acute (4) Depressed affect Status: Acute (5) Substance induced mood disorder Status: Acute Cleared for Admission S - Detox or Rehab Detox Regimen/Protocol: Not Applicable Claeared for Rehab Admission: Yes Breathalyzer - Breathalyzer Breathalyzer: 0 Urine Drug Screen - Test Device Lot number: [id number] Expiration date: 07/26/21 - Control Is test valid?: Yes - Results Drug screen NEGATIVE: No Urine drug screen results: DARLENE-Cocaine, BUP-Suboxone Inpatient Rehab Admission - Rehab Decision to Admit Inpatient rehab admission?: Yes - Initial Determination Are CD services needed?: Yes Free of communicable disease: Yes Not in need of hospitalization: Yes - Rehab Admission Criteria Previous failed treatment: Yes Poor recovery environment: Yes Comorbidities: Yes Lacks judgement: No Patient is meeting Inpatient Rehab admission criteria:: Yes
[2019-10-05] MEDS ORDERED: MAG HYDROX/AL HYDROX/SIMETH 30 ML UNIT-DOSE CUP PO PRN (23:37)
[2019-10-05] MEDS ORDERED: P-EPHED 60MG/TRIPROLIDI 2.5MG TABLET PO PRN (23:37)
[2019-10-05] MEDS ORDERED: ACETAMINOPHEN 325 MG TABLET (FP) PO PRN (23:37)
[2019-10-05] MEDS ORDERED: LOPERAMIDE HCL 2 MG CAPSULE PO PRN (23:37)
[2019-10-05] MEDS ORDERED: MENTHOL/PHENOL 1 EACH UD MM PRN (23:37)
[2019-10-05] MEDS ORDERED: guaiFENesin 200 MG/10 ML 10 ML UNIT-DOSE CUPS PO PRN (23:37)
[2019-10-05] MEDS ORDERED: IBUPROFEN 400 MG TABLET (FP) PO PRN (23:37)
[2019-10-05] MEDS ORDERED: NICOTINE POLACRILEX 2 MG GUM BC PRN (23:37)
[2019-10-05] MEDS ORDERED: MAGNESIUM HYDROX 2400MG/30ML ORAL SUSPENSION 30 ML CUP PO PRN (23:37)
[2019-10-05] MEDS ORDERED: MAGNESIUM CITRATE 300 ML BOTTLE PO PRN (23:37)
--- NOTE | 2019-10-06 10:11 | PN ---
S Progress Note (SOAP) Subjective: Patient requesting suboxone treatment. Patient Name: Rhett Auguste Date: 1970 Address: [address] [place] [address] Sex: Male Rx Written Rx Dispensed Drug Quantity Days Supply Prescriber Name 10/04/2019 10/05/2019 buprenorphine-naloxone 8-2 mg sl film 30 30 Jonathan Esparza 07/20/2019 07/20/2019 chlordiazepoxide 25 mg capsule 2 2 Dov Posadas MD Objective: general: no apparent distress. 10/06/19 12:55 Assessment: opioid use disorder, no suboxone 10/06/19 12:55 Plan: Will start suboxone treatment.
[2019-10-06] MEDS: PRENATAL VITAMINS W/ FOLIC ACID TABLET (FP) PO SCH (10:34)
[2019-10-06] MEDS: NICOTINE 21 MG/24 HOURS TOPICAL PATCH TD SCH (10:45)
--- NOTE | 2019-10-06 11:41 | EKG ---
Test Reason : Blood Pressure : / mmHG Vent. Rate : 085 BPM Atrial Rate : 085 BPM P-R Int : 146 ms QRS Dur : 104 ms QT Int : 416 ms P-R-T Axes : 054 012 040 degrees QTc Int : 495 ms NORMAL SINUS RHYTHM PROLONGED QT ABNORMAL ECG WHEN COMPARED WITH ECG OF 18-JUN-2019 18:39, QT HAS LENGTHENED Confirmed by Porfirio Hubbard MD ([id number]) on 10/06/2019 11:40:53 AM Referred By: Confirmed By:Porfirio Hubbard MD
[2019-10-06] MEDS: BUPRENORPHINE/NALOXONE 8 MG/2 MG FILM PACKET SL SCH (14:05)
--- NOTE | 2019-10-06 14:49 | PN ---
S Progress Note Note: patient requesting his psychiatric medications. psych consult initiated.
[2019-10-06] MEDS: FAMOTIDINE 20 MG TABLET PO SCH (16:25)
[2019-10-06] MEDS: DIVALPROEX NA *ER* EXTEND REL 500 MG TABLET.SA (FP) PO SCH (21:03)
[2019-10-06] MEDS ORDERED: THIAMINE HCL 100 MG TABLET (FP) PO SCH (22:00)
[2019-10-07 07:58] VITALS: BP 110/75; PULSE 79; TEMP 97.9
[2019-10-07] MEDS: FAMOTIDINE 20 MG TABLET PO SCH (09:40)
[2019-10-07] MEDS: BUPRENORPHINE/NALOXONE 8 MG/2 MG FILM PACKET SL SCH (09:40)
[2019-10-07] MEDS: PRENATAL VITAMINS W/ FOLIC ACID TABLET (FP) PO SCH (09:40)
[2019-10-07] MEDS: NICOTINE 21 MG/24 HOURS TOPICAL PATCH TD SCH (09:40)
[2019-10-07] MEDS: DIVALPROEX NA *ER* EXTEND REL 500 MG TABLET.SA (FP) PO SCH (09:40)
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
--- NOTE | 2019-10-07 11:07 | DS ---
[facility] Rehab Discharge Summary - [facility] Rehab Discharge Summary Admission Date: 10/05/19 Discharge Date: 10/07/19 - History Present History: Alcohol dependence, Cocaine dependence, Opioid dependence Pertinent Past History: HERE FOR REHAB TXMENT FOR ALCOHOL AND CRACK/COCAINE ABUSE.AFTER HOSPITALIZATION AT [facility] FOR THE LAST 3 WEEKS. CLIENT WAS ADMITTED THERE ON AND DC 10/04/19. HE WAS TREATED FOR MDD AMONG OTHER MENTAL HEALTH D/O. WHILE THERE HE WAS DETOXED FROM ALCOHOL. HE IS ALSO ON SBX MGMT. 8/ MG DAILY. DENIES HX/O WITHDRAWAL SEIZURES, BLACKOUTS, DRUG OVERDOSE. PT IS HOMELESS, UNEMPLOYED. DENIES LEGALS - Discharge Physical Exam Vital Signs: Vital Signs Temperature 97.9 F 10/07/19 06:30 Pulse Rate 79 10/07/19 06:30 Respiratory Rate 18 10/07/19 06:30 Blood Pressure 110/75 10/07/19 06:30 O2 Sat by Pulse Oximetry (%) Pertinent Admission Physical Exam Findings: Physical General Appearance: Mild Distress, HEENTM: Normocephalic Neck: Supple, Musculoskeletal: full range of Motion, Gait Steady Neurological: Fully Oriented, Alert, - Treatment Discharge Condition: Discharge condition good (Medically stable for discharge; Refusing aftercare referral) Hospital Course: patient was admitted to rehab on 10/06/2019. He was started on his suboxone, but needed evaluation by the psychiatric service for his psychiatric medications. He was seen today for his psychiatric medications and they were ordered. The patient refused all lab work this morning and stated that he wanted to leave. He was counseled by his counselor who reviewed the benefits of continuing with his rehab. He still decided to leave. He was seen by me and he requested suboxone medication, however, he had no plans for aftercare or continued suboxone treatment. He was advised that as soon as a referral for continued suboxone MAT could be arranged, a 1 week prescription of suboxone would be made. This would provide him with treatment until his MAT appointment. Patient refused a referral for on-going suboxone treatment and therefore a prescription was not generated. - Medication Discharge Medications: Ambulatory Orders Bupropion HCl [Wellbutrin -] 150 mg PO BID 07/05/19 Lansoprazole [Prevacid] 15 mg PO DAILY 07/05/19 Trazodone HCl 150 mg PO HS 07/05/19 clonazePAM [Klonopin -] 0.5 mg PO TID 07/05/19 Chlorpromazine [Thorazine -] 100 mg PO DAILY 07/12/19 Gabapentin [Neurontin -] 300 cap PO DAILY 07/12/19 Acetaminophen [Tylenol] 325 mg PO TID PRN 10/05/19 Aripiprazole 10 mg PO 10/05/19 Divalproex *ER* [Depakote *ER* -] 1 tablet PO BID 10/05/19 Doxepin HCl [Sinequan -] 10 mg PO HS 10/05/19 Famotidine 20 mg PO DAILY 10/05/19 Folic Acid 1 mg PO DAILY 10/05/19 Multivitamins [Multivit ([facility] Formulary)] 1 tablet PO DAILY 10/05/19 Omeprazole 20 mg PO DAILY 10/05/19 Prazosin HCl 1 mg PO HS 10/05/19 Thiamine HCl [Vitamin B-1] 1 tablet PO DAILY 10/05/19 Wellbutrin Xl - 150 mg PO DAILY 10/05/19 - Medication-Assisted Treatment (MAT) Medication-Assisted Treatment (MAT): No MAT Follow-up Referral: A Suboxone referral was offered to the patient and he refused. - Discharge Instructions Diet, activity, other medical instructions: Diet: as tolerated Activity: as tolerated Other medical instructions: Patient was encouraged to establish on-going aftercare for substance use treatment. Patient refused offers of referrals. - Diagnosis (1) Alcohol dependence Status: Chronic (2) Cocaine dependence Status: Chronic (3) Opioid dependence on agonist therapy Status: Suspected - Follow-up Referral Minutes to complete discharge: 15 - AMA Did Patient Leave Against Medical Advice: Yes Additional Comments: Patient decided to leave < 24 hours after admission to rehab.
[2019-10-07] MEDS ORDERED: DOXEPIN HCL 10 MG CAPSULE PO SCH (22:00)
[2019-10-07] MEDS ORDERED: SUVOREXANT 10 MG TABLET PO PRN (22:00)
[2019-10-07] MEDS ORDERED: ARIPiprazole 10 MG TABLET PO SCH (22:00)
[2019-10-07] MEDS ORDERED: PRAZOSIN HCL 1 MG CAPSULE PO SCH (22:00)
== END 2019-10-07 11:06 | disposition left against medical advice (07) | DRG 770 ==
LOC: YASAS 17:23 → Y3W 23:36
PROVIDERS: ADMIT Allergy & Immunology; ATTEND Allergy & Immunology
PROC: HZ42ZZZ Group Counseling for Substance Abuse Treatment, Cognitive-Behavioral (ICD-10-PCS; principal; 2019-10-05)
DX: F10.20 Alcohol dependence, uncomplicated (principal); F11.20 Opioid dependence, uncomplicated; F14.20 Cocaine dependence, uncomplicated; F17.210 Nicotine dependence, cigarettes, uncomplicated; F25.9 Schizoaffective disorder, unspecified; F43.10 Post-traumatic stress disorder, unspecified; F19.24 Other psychoactive substance dependence with psychoactive substance-induced mood disorder; F19.282 Other psychoactive substance dependence with psychoactive substance-induced sleep disorder; K29.20 Alcoholic gastritis without bleeding; K21.9 Gastro-esophageal reflux disease without esophagitis; M54.5 Low back pain; G89.29 Other chronic pain; Z91.013 Allergy to seafood; Z91.010 Allergy to peanuts; Z91.018 Allergy to other foods
CPT/HCPCS: 93005; 93010

== ENCOUNTER 2019-10-09 23:56 | Emergency (ER) | payer OTHER ==
[2019-10-10 00:08] VITALS: TEMP 98.1; BMI 25.8
--- NOTE | 2019-10-10 01:42 | PDOC ---
History of Present Illness <Susi Wright - Last Filed: 10/10/19 05:48> - History of Present Illness Initial Comments: HPI: 49yo M wtih PMH of polysubstance abuse (ETOH, cocaine, K2, marijuana), PTSD, depression, anxiety, schizophrenia presenting with alcohol withdrawal. Patient states he is trying to stop drinking. Last drank five pints of vodka this morning. Last used cocaine, K2, and marijuana yesterday. Per chart review, patient left AMA from detox about three days ago. Denies history of alcohol withdrawal seizure. Is currently homeless and unemployed. Would like to go to detox. Reports nausea, headache, congestion, cough, chest pain. States that he blacked out this morning and fell and hit his head. No fevers, but endorses chills. ROS: Constitutional: no fever, +chills HEENT: no throat pain, no dysphagia Cardiovascular: + chest pain, no palpitations Respiratory: +cough, no shortness of breath Gastrointestinal: no abdominal pain, no nausea Genitourinary: no dysuria, no hematuria Musculoskeletal: no myalgia, no arthralgia Skin: no rash, no itching Neurologic: no headache, no weakness Psych: no agitation, no anxiety PE: General: Awake, alert, and fully oriented, in no acute distress Head: No signs of trauma Eyes: EOMI, sclera anicteric ENT: Moist mucus membranes, tongue fascicultions Neck: Normal ROM, supple Lungs: Lungs clear, Normal breath sounds Cardio: Regular rhythm, S1 and S2 present Abdomen: Soft, nontender, nondistended Extremities: Normal range of motion, Distal pulses present, upper extremitied tremulous SKIN: Warm, Dry, normal turgor Neurologic: Cranial nerves II through XII grossly intact. Normal speech ED Course/MDM: DDX including but not limited to alcohol intoxication, ingestion, Labs, EKG Ativan Librium CT Head and Cspine CIWA 13 10/10/19 01:41 CBC WBC 7.4 K/mm3 (4.0-10.0) 10/10/19 02:00 RBC 4.58 M/mm3 (4.00-5.60) 10/10/19 02:00 Hgb 12.7 GM/dL (11.7-16.9) 10/10/19 02:00 Hct 38.1 % (35.4-49) D 10/10/19 02:00 MCV 83.1 fl (80-96) 10/10/19 02:00 MCH 27.8 pg (25.7-33.7) 10/10/19 02:00 MCHC 33.4 g/dl (32.0-35.9) 10/10/19 02:00 RDW 14.8 % (11.9-15.9) 10/10/19 02:00 Plt Count 339 K/MM3 (134-434) 10/10/19 02:00 MPV 7.7 fl (7.5-11.1) D 10/10/19 02:00 Absolute Neuts (auto) 4.1 K/mm3 (1.5-8.0) 10/10/19 02:00 Neutrophils % 55.0 % (42.8-82.8) 10/10/19 02:00 Lymphocytes % 27.6 % (8-40) D 10/10/19 02:00 Monocytes % 10.4 % (3.8-10.2) H 10/10/19 02:00 Eosinophils % 6.6 % (0-4.5) H 10/10/19 02:00 Basophils % 0.4 % (0-2.0) 10/10/19 02:00 Nucleated RBC % 0 % (0-0) 10/10/19 02:00 No leukocytosis CMP Sodium 142 mmol/L (136-145) 10/10/19 02:00 Potassium 4.6 mmol/L (3.5-5.1) 10/10/19 02:00 Chloride 107 mmol/L (98-107) 10/10/19 02:00 Carbon Dioxide 31 mmol/L (21-32) 10/10/19 02:00 Anion Gap 4 MMOL/L (8-16) L 10/10/19 02:00 BUN 13.8 mg/dL (7-18) 10/10/19 02:00 Creatinine 1.0 mg/dL (0.55-1.3) 10/10/19 02:00 Est GFR (CKD-EPI)AfAm 100.55 10/10/19 02:00 Est GFR (CKD-EPI)NonAf 86.76 10/10/19 02:00 Random Glucose 99 mg/dL (74-106) 10/10/19 02:00 Calcium 8.9 mg/dL (8.5-10.1) 10/10/19 02:00 Phosphorus 4.1 mg/dL (2.5-4.9) 10/10/19 02:00 Magnesium 2.1 mg/dL (1.8-2.4) 10/10/19 02:00 Total Bilirubin 0.1 mg/dL (0.2-1) L 10/10/19 02:00 AST 23 U/L (15-37) 10/10/19 02:00 ALT 38 U/L (13-61) 10/10/19 02:00 Alkaline Phosphatase 120 U/L (45-117) H 10/10/19 02:00 Troponin I < 0.02 ng/ml (0.00-0.05) 10/10/19 02:00 Total Protein 6.3 g/dl (6.4-8.2) L 10/10/19 02:00 Albumin 3.2 g/dl (3.4-5.0) L 10/10/19 02:00 Electrolytes unremarkable Normal Cr No transaminitis Normal Tpn Patient less tremulous CT cspine as read by imaging station cleaning porter: "FINDINGS: There is no fracture, subluxation, prevertebral soft tissue swelling. There are bulging disc osteophyte complexes causing mild central canal neuroforaminal narrowing narrowing of the C4-5 and C5-6 levels. Mild atelectatic changes are noted in the lung apices. IMPRESSION: No fracture." CT head as read by imaging station cleaning porter: "HISTORY: Trauma COMPARISON: None. FINDINGS: The ventricular system is midline and nondilated. The sulcal pattern is normal for the patient's age. There is no bleed, mass, extra-axial fluid collection or mass effect. Nasal bridge fracture is noted. Left leg zygomatic process deformity appears old. No skull fracture or skull lesion is identified. The mastoid air cells are clear. Scattered sinus mucosal thickening is noted with bubbly secretions in the right adnexa sinus, suggesting sinusitis. IMPRESSION: Nasal bridge fracture without skull fracture or intracranial hemorrhage. Possible sinusitis" Patient instructed to present to detox Return precautions <Tiffanie Del Castillo - Last Filed: 10/10/19 08:48> - General Chief Complaint: Cold Symptoms Stated Complaint: COLD SYMPTOMS Time Seen by Provider: 10/10/19 01:12 Past History <Susi Wright - Last Filed: 10/10/19 05:48> - Past Medical History Anemia: No Asthma: No Cancer: No Cardiac Disorders: No CVA: No COPD: No CHF: No Dementia: No Diabetes: No GI Disorders: No Disorders: No HTN: No Hypercholesterolemia: No Kidney Stones: No Liver Disease: No Seizures: No Thyroid Disease: No - Surgical History Abdominal Surgery: No Appendectomy: No Cardiac Surgery: No Cholecystectomy: No Lung Surgery: No Neurologic Surgery: No - Reproductive History Testicular Surgery: No - Psycho Social/Smoking Cessation Hx Smoking History: Never smoked Have you smoked in the past 12 months: No Number of Cigarettes Smoked Daily: 5 Cigars Per Day: 0 Information on smoking cessation initiated: No 'Breaking Loose' booklet given: 10/05/19 Hx Alcohol Use: No Drug/Substance Use Hx: No Substance Use Type: Alcohol, Cocaine, Prescribed (SBX) Hx Substance Use Treatment: No <Tiffanie Del Castillo - Last Filed: 10/10/19 08:48> - Past Medical History Allergies/Adverse Reactions: Allergies Allergy/AdvReac Type Severity Reaction Status Date / Time Fish Containing Products Allergy Verified 10/10/19 00:06 No Known Drug Allergies Allergy Verified 10/10/19 00:06 peanut Allergy Verified 10/10/19 00:06 pepper (genus Capsicum) Allergy Verified 10/10/19 00:06 Home Medications: Ambulatory Orders Bupropion HCl [Wellbutrin -] 150 mg PO BID 07/05/19 Lansoprazole [Prevacid] 15 mg PO DAILY 07/05/19 Trazodone HCl 150 mg PO HS 07/05/19 clonazePAM [Klonopin -] 0.5 mg PO TID 07/05/19 Chlorpromazine [Thorazine -] 100 mg PO DAILY 07/12/19 Gabapentin [Neurontin -] 300 cap PO DAILY 07/12/19 Acetaminophen [Tylenol] 325 mg PO TID PRN 10/05/19 Aripiprazole 10 mg PO 10/05/19 Divalproex *ER* [Depakote *ER* -] 1 tablet PO BID 10/05/19 Doxepin HCl [Sinequan -] 10 mg PO HS 10/05/19 Famotidine 20 mg PO DAILY 10/05/19 Folic Acid 1 mg PO DAILY 10/05/19 Multivitamins [Multivit ([facility] Formul[facility])] 1 tablet PO DAILY 10/05/19 Omeprazole 20 mg PO DAILY 10/05/19 Prazosin HCl 1 mg PO HS 10/05/19 Thiamine HCl [Vitamin B-1] 1 tablet PO DAILY 10/05/19 Wellbutrin Xl - 150 mg PO DAILY 10/05/19 *Physical Exam - Vital Signs Last Vital Signs Temp Pulse Resp BP Pulse Ox 98.1 F 78 18 85/56 L 97 10/10/19 00:06 10/10/19 05:23 10/10/19 05:23 10/10/19 05:23 10/10/19 05:23 <Susi Wright - Last Filed: 10/10/19 05:48> - Vital Signs Last Vital Signs Temp Pulse Resp BP Pulse Ox 98.1 F 79 18 101/62 100 10/10/19 00:06 10/10/19 00:06 10/10/19 00:06 10/10/19 00:06 10/10/19 00:06 <Tiffanie Del Castillo - Last Filed: 10/10/19 08:48> ED Treatment Course - LABORATORY CBC & Chemistry Diagram: 10/10/19 02:00 10/10/19 02:00 - ADDITIONAL ORDERS Additional order review: Laboratory Results 10/10/19 10/10/19 10/10/19 03:20 02:00 02:00 Sodium 142 Potassium 4.6 Chloride 107 Carbon Dioxide 31 Anion Gap 4 L BUN 13.8 Creatinine 1.0 Est GFR (CKD-EPI)AfAm 100.55 Est GFR (CKD-EPI)NonAf 86.76 Random Glucose 99 Calcium 8.9 Phosphorus 4.1 Magnesium 2.1 Total Bilirubin 0.1 L AST 23 ALT 38 Alkaline Phosphatase 120 H Troponin I < 0.02 Total Protein 6.3 L Albumin 3.2 L Salicylates < 1.7 L Acetaminophen <2.0 Alcohol, Quantitative < 3 10/10/19 02:00 RBC 4.58 MCV 83.1 MCHC 33.4 RDW 14.8 MPV 7.7 D Neutrophils % 55.0 Lymphocytes % 27.6 D Monocytes % 10.4 H Eosinophils % 6.6 H Basophils % 0.4 - Medications Given in the ED: ED Medications Discontinued Medications Generic Name Dose Route Start Last Admin Trade Name Gage PRN Reason Stop Dose Admin Chlordiazepoxide HCl 50 mg 10/10/19 03:00 10/10/19 03:05 Librium - PO 10/10/19 03:01 50 mg ONCE ONE Administration Lorazepam 0.5 mg 10/10/19 01:53 10/10/19 02:10 Ativan Injection - IVPUSH 10/10/19 01:54 0.5 mg ONCE ONE Administration Lorazepam 2 mg 10/10/19 03:24 10/10/19 03:36 Ativan Injection - IVPUSH 10/10/19 03:25 2 mg ONCE ONE Administration Sodium Chloride 1,000 ml 10/10/19 05:18 10/10/19 05:23 Normal Saline - IV 10/10/19 05:19 1,000 ml ONCE ONE Administration <Susi Wright - Last Filed: 10/10/19 05:48> - LABORATORY CBC & Chemistry Diagram: 10/10/19 02:00 10/10/19 02:00 <Tiffanie Del Castillo - Last Filed: 10/10/19 08:48> Discharge - Admission No <Susi Wright - Last Filed: 10/10/19 05:48> - Discharge Information Problems reviewed: Yes <Tiffanie Del Castillo - Last Filed: 10/10/19 08:48> - Discharge Information Clinical Impression/Diagnosis: Alcohol dependence with withdrawal Qualifiers: Complication of substance-induced condition: uncomplicated Qualified Code(s): F10.230 - Alcohol dependence with withdrawal, uncomplicated Nasal bone fracture Qualifiers: Encounter type: initial encounter Fracture type: closed Qualified Code(s): S02.2XXA - Fracture of nasal bones, initial encounter for closed fracture Condition: Stable Disposition: HOME - Patient Discharge Instructions Patient Printed Discharge Instructions: DI for Nose Fracture Additional Instructions: You came into the emergency department with alcohol withdrawal. Blood work and EKG did not show acute pathology. Present to detox. Immediate medical attention is required if you have: a seizure or develop tremors or hallucinations and do not have access to alcohol, vomiting, chest pain, shortness of breath, abdominal pain, thoughts of self-harm, or an other new or concerning symptoms. If you think you are having an emergency, call for emergency medical services or present to the emergency department right away.
[2019-10-10] MEDS ORDERED: LORazepam 2 MG/ML SDV VIAL ONE ×2 (02:07→03:33)
[2019-10-10 02:13] LABS: BASO % 0.4 % (0-2.0); EOS % 6.6 % (0-4.5); HEMATOCRIT 38.1 % (35.4-49); HEMOGLOBIN 12.7 GM/dL (11.7-16.9); LYMPH % 27.6 % (8-40); MCH 27.8 pg (25.7-33.7); MCHC 33.4 g/dl (32.0-35.9); MEAN CELL VOLUME 83.1 fl (80-96); MEAN PLT VOLUME 7.7 fl (7.5-11.1); MONO % 10.4 % (3.8-10.2); PLATELET COUNT 339 K/MM3 (134-434); RBC 4.58 M/mm3 (4.00-5.60); RDW 14.8 % (11.9-15.9); WHITE BLOOD COUNT 7.4 K/mm3 (4.0-10.0)
[2019-10-10 02:48] LABS: ALBUMIN 3.2 g/dl (3.4-5.0); ALK PHOS 120 U/L (45-117); ANION GAP 4 MMOL/L (8-16); BILIRUBIN,TOTAL 0.1 mg/dL (0.2-1); BLOOD UREA NITROGEN 13.8 mg/dL (7-18); CALCIUM 8.9 mg/dL (8.5-10.1); CHLORIDE 107 mmol/L (98-107); CO2 31 mmol/L (21-32); GLUCOSE,RANDOM 99 mg/dL (74-106); MAGNESIUM 2.1 mg/dL (1.8-2.4); PHOSPHOROUS 4.1 mg/dL (2.5-4.9); POTASSIUM 4.6 mmol/L (3.5-5.1); SGOT/AST 23 U/L (15-37); SGPT/ALT 38 U/L (13-61); SODIUM 142 mmol/L (136-145); TOT PROT 6.3 g/dl (6.4-8.2)
[2019-10-10] MEDS ORDERED: chlordiazePOXIDE HCL 25 MG CAPSULE PO ONE (03:00)
[2019-10-10] MEDS ORDERED: chlordiazePOXIDE HCL 25 MG CAPSULE ONE (03:02)
--- NOTE | 2019-10-10 03:14 | PDOC ---
Attending Attestation - Resident Resident Name: Tiffanie Del Castillo - ED Attending Attestation I have performed the following: I have examined & evaluated the patient, The case was reviewed & discussed with the resident, I agree w/resident's findings & plan - HPI HPI: 10/10/19 04:12 Pt comes with alcohol withdrawal He wants to quit and he stopped drinking after this AM - Physicial Exam PE: 10/10/19 05:46 Normal exam 10/10/19 05:46 labs are normal Patient Name: MAIKEL SCHULZ THIS IS A PRELIMINARY REPORT FROM [facility] DATE OF SERVICE: 2019-10-10 04:32:19 IMAGES: [id number] EXAM: CERVICAL SPINE CT W/O CONTR HISTORY: Trauma COMPARISON: None. FINDINGS: There is no fracture, subluxation, prevertebral soft tissue swelling. There are bulging disc osteophyte complexes causing mild central canal neuroforaminal narrowing narrowing of the C4-5 and C5-6 levels. Mild atelectatic changes are noted in the lung apices. IMPRESSION: No fracture. Patient Name: MAIKEL SCHULZ THIS IS A PRELIMINARY REPORT FROM [facility] DATE OF SERVICE: 2019-10-10 04:34:50 IMAGES: [id number] EXAM: HEAD CT WITHOUT CONTRAST HISTORY: Trauma COMPARISON: None. FINDINGS: The ventricular system is midline and nondilated. The sulcal pattern is normal for the patient's age. There is no bleed, mass, extra-axial fluid collection or mass effect. Nasal bridge fracture is noted. Left leg zygomatic process deformity appears old. No skull fracture or skull lesion is identified. The mastoid air cells are clear. Scattered sinus mucosal thickening is noted with bubbly secretions in the right adnexa sinus, suggesting sinusitis. IMPRESSION: Nasal bridge fracture without skull fracture or intracranial hemorrhage. Possible sinusitis - Medical Decision Making 10/10/19 05:47 Pt has a broken nose
[2019-10-10] MEDS ORDERED: SODIUM CHLORIDE 0.9% 500 ML INFUS.BAG IV ONE (05:18)
[2019-10-10 05:24] VITALS: PULSE 78
[2019-10-10 05:50] VITALS: BP 100/55
--- NOTE | 2019-10-10 14:12 | EKG ---
Test Reason : Blood Pressure : / mmHG Vent. Rate : 074 BPM Atrial Rate : 074 BPM P-R Int : 148 ms QRS Dur : 096 ms QT Int : 402 ms P-R-T Axes : 034 003 017 degrees QTc Int : 446 ms NORMAL SINUS RHYTHM NORMAL ECG Confirmed by MD ALLEN GREGORY ([id number]) on 10/10/2019 2:11:57 PM Referred By: Confirmed By:CARINA ALLEN MD
== END 2019-10-10 05:56 | disposition home or self-care (01) ==
LOC: JER 23:56
PROC: 3E033NZ Introduction of Analgesics, Hypnotics, Sedatives into Peripheral Vein, Percutaneous Approach (ICD-10-PCS; principal; 2019-10-09)
DX: S02.2XXA Fracture of nasal bones, initial encounter for closed fracture (principal); R55 Syncope and collapse; F10.230 Alcohol dependence with withdrawal, uncomplicated; W18.39XA Other fall on same level, initial encounter; Y93.89 Activity, other specified; Y92.89 Other specified places as the place of occurrence of the external cause; Y99.8 Other external cause status; Z91.013 Allergy to seafood; Z91.010 Allergy to peanuts; F20.9 Schizophrenia, unspecified; F41.9 Anxiety disorder, unspecified; F32.9 Major depressive disorder, single episode, unspecified; F43.10 Post-traumatic stress disorder, unspecified; F19.90 Other psychoactive substance use, unspecified, uncomplicated
CPT/HCPCS: 36415; 70450-TC; 72125-TC; 80053; 80307; 83735; 84100; 84484; 85025; 93005; 93010; 99284-25

== ENCOUNTER 2019-10-12 22:46 | Observation (INO) | payer OTHER ==
[2019-10-12 23:02] VITALS: BP 131/86; PULSE 95; TEMP 98.9; BMI 24.2
--- NOTE | 2019-10-12 23:08 | PDOC ---
History of Present Illness - General Chief Complaint: Chest Pain Stated Complaint: CHEST PAINS/COUGHING/R/ARM NUMBNESS Time Seen by Provider: 10/12/19 23:07 - History of Present Illness Initial Comments: 10/12/19 23:46 The patient is a 49 year old male with a history of HTN, HLD, Polysubstance abuse, who presents for evaluation of chest pain and shortness of breath. The patient reports a 1 week history of substernal sharp chest pain worse with inspiration prompting his presentation to the ED for further evaluation. He notes that he is a polysubstance user mainly using K2 and alcohol with his last use being 2 pm today. He states that he has not had a cardiology work up in the past before. He otherwise denies fevers, chills, nausea, vomiting, abdominal pain, or changes with urination or bowel movements. Past History - Past Medical History Allergies/Adverse Reactions: Allergies Allergy/AdvReac Type Severity Reaction Status Date / Time Fish Containing Products Allergy Verified 10/10/19 00:06 No Known Drug Allergies Allergy Verified 10/10/19 00:06 peanut Allergy Verified 10/10/19 00:06 pepper (genus Capsicum) Allergy Verified 10/10/19 00:06 Home Medications: Ambulatory Orders Bupropion HCl [Wellbutrin -] 150 mg PO BID 07/05/19 Lansoprazole [Prevacid] 15 mg PO DAILY 07/05/19 Trazodone HCl 150 mg PO HS 07/05/19 clonazePAM [Klonopin -] 0.5 mg PO TID 07/05/19 Chlorpromazine [Thorazine -] 100 mg PO DAILY 07/12/19 Gabapentin [Neurontin -] 300 cap PO DAILY 07/12/19 Acetaminophen [Tylenol] 325 mg PO TID PRN 10/05/19 Aripiprazole 10 mg PO 10/05/19 Divalproex *ER* [Depakote *ER* -] 1 tablet PO BID 10/05/19 Doxepin HCl [Sinequan -] 10 mg PO HS 10/05/19 Famotidine 20 mg PO DAILY 10/05/19 Folic Acid 1 mg PO DAILY 10/05/19 Multivitamins [Multivit ([facility] Formul[facility])] 1 tablet PO DAILY 10/05/19 Omeprazole 20 mg PO DAILY 02/04/20 Prazosin HCl 1 mg PO HS 10/05/19 Thiamine HCl [Vitamin B-1] 1 tablet PO DAILY 10/05/19 Wellbutrin Xl - 150 mg PO DAILY 10/05/19 Anemia: No Asthma: No Cancer: No Cardiac Disorders: No CVA: No COPD: No CHF: No Dementia: No Diabetes: No GI Disorders: No Disorders: No HTN: No Hypercholesterolemia: No Kidney Stones: No Liver Disease: No Seizures: No Thyroid Disease: No - Surgical History Abdominal Surgery: No Appendectomy: No Cardiac Surgery: No Cholecystectomy: No Lung Surgery: No Neurologic Surgery: No - Reproductive History Testicular Surgery: No - Psycho Social/Smoking Cessation Hx Smoking History: Current every day smoker Have you smoked in the past 12 months: No Number of Cigarettes Smoked Daily: 5 Cigars Per Day: 0 Information on smoking cessation initiated: Yes 'Breaking Loose' booklet given: 10/05/19 Hx Alcohol Use: Yes (vodka) Drug/Substance Use Hx: Yes (K2) Substance Use Type: Alcohol, Cocaine, Prescribed (SBX) Hx Substance Use Treatment: No Review of Systems - Review of Systems Comments:: 10/12/19 23:49 Constitutional: No fevers, chills, fatigue, malaise HEENT: No Rhinorrhea, nasal congestion, visual changes Cardiovascular: Chest pain. No syncope, palpitations, lightheadedness Respiratory: SOB. No Cough, Hemoptysis, Gastrointestinal: No Abdominal pain, Nausea, Vomiting, Constipation, Diarrhea, Melena Genitourinary: No Dysuria, Frequency, Urgency, Hesitancy, Hematuria, Flank pain Musculoskeletal: No Myalgia, arthralgia Skin: No rashes, itching, bruising, pallor Neurologic: No Headache, Dizziness, Numbness, Weakness, or Tingling Psychiatric: No Hallucinations. No SI or HI *Physical Exam - Vital Signs Last Vital Signs Temp Pulse Resp BP Pulse Ox 98.9 F 95 H 20 131/86 98 10/12/19 22:58 10/12/19 22:58 10/12/19 22:58 10/12/19 22:58 10/12/19 22:58 - Physical Exam 10/12/19 23:49 General Appearance: Nourished. No Apparent Distress HEENT: EOMI, AMARIS. No Pharyngeal Erythema, Tonsillar Exudate, Tonsillar Erythema Neck: No Cervical Lymphadenopathy Respiratory/Chest: Lungs Clear, Normal Breath Sounds. No Crackles, Rales, Rhonchi, Wheezing Cardiovascular: Regular Rhythm, Regular Rate. No Murmur, Gallops, Rubs Gastrointestinal/Abdominal: Normal Bowel Sounds, Soft. No Guarding, Rebound, Tenderness Musculoskeletal: No CVA Tenderness Extremity: Normal Capillary Refill Integumentary: Normal Color, Dry, Warm Neurologic: textile chemist II-XII NML intact, Fully Oriented, Alert, Normal Mood/Affect, Normal Response, Motor Strength 5/5. Heart Score/ECG Review - History History: Moderately suspicious - Electrocardiogram EKG: Normal - Age Age: 45-65 - Risk Factors Risk Factors Heart Score: Yes Hx Hypercholesterolemia, Yes Hx Hypertension, Yes Smoking History Based on the list above the patient has:: >/=3 risk factors or Hx atherosclerotic disease - Troponin Troponin: </= normal limit - Score Heart Score - Total: 4 #1 ECG reviewed & interpreted by me at: 23:50 General ECG Interpretation: Sinus Rhythm, Normal Rate, Normal Intervals, No acute ischemic changes Compared to previous ECG there are: No significant change ED Treatment Course - LABORATORY CBC & Chemistry Diagram: 10/13/19 00:30 10/13/19 00:30 Medical Decision Making - Medical Decision Making 10/12/19 23:50 The patient is a 49 year old male with a history of HTN, HLD, Polysubstance abuse, who presents for evaluation of chest pain and shortness of breath. Differential includes but is not limited to: ACS, PE, Musculoskeletal, Infectious, Metabolic Derangement. Given the patient's history and physical exam, we will obtain a cbc, cmp, troponin, d-dimer, chest plain film, ekg to evaluate further. We will continue to monitor and reassess while here in the ED. 10/13/19 06:24 CBC, cmp, troponin, d-dimer were unremarkable. Chest plain film did not demonstrate any acute pathology. Given the patient's cardiac risk factors and poor outpatient followup, the patient will require admission for further monitoring and management. Discharge - Discharge Information Problems reviewed: Yes Clinical Impression/Diagnosis: Alcohol abuse, Cocaine abuse, Chest pain Condition: Stable - Admission Yes - Follow up/Referral - Patient Discharge Instructions - Post Discharge Activity
--- NOTE | 2019-10-12 23:08 | PDOC ---
Attending Attestation - Resident Resident Name: Krish Vogel - ED Attending Attestation I have performed the following: I have examined & evaluated the patient, The case was reviewed & discussed with the resident, I agree w/resident's findings & plan - HPI HPI: 10/13/19 01:29 see resident hpi - Physicial Exam PE: 10/13/19 01:30 see resident exam - Medical Decision Making 10/13/19 01:30 49-year-old male with history of polysubstance abuse complaining of chest pain, recently evaluated for the same but now symptoms are becoming more persistent Plan for labs, chest x-ray and EKG In light of multiple previous visits with poor outpatient follow-up will hold for observation
[2019-10-13 01:05] LABS: BASO % 0.7 % (0-2.0); EOS % 5.6 % (0-4.5); HEMATOCRIT 40.5 % (35.4-49); HEMOGLOBIN 13.5 GM/dL (11.7-16.9); LYMPH % 24.5 % (8-40); MCH 27.8 pg (25.7-33.7); MCHC 33.2 g/dl (32.0-35.9); MEAN CELL VOLUME 83.7 fl (80-96); MEAN PLT VOLUME 7.6 fl (7.5-11.1); MONO % 9.1 % (3.8-10.2); NEUT % 60.1 % (42.8-82.8); PLATELET COUNT 408 K/MM3 (134-434); RBC 4.84 M/mm3 (4.00-5.60); RDW 15.1 % (11.9-15.9); WHITE BLOOD COUNT 8.9 K/mm3 (4.0-10.0)
[2019-10-13 01:21] LABS: INR 1.04 (0.83-1.09); PROTHROMBIN TIME (PATIENT) 12.3 SEC (9.7-13.0)
[2019-10-13 01:24] LABS: ACTIVATED PTT 30.6 SECONDS (25.2-36.5)
[2019-10-13 01:38] LABS: ALBUMIN 3.4 g/dl (3.4-5.0); ALK PHOS 146 U/L (45-117); ANION GAP 6 MMOL/L (8-16); BILIRUBIN,TOTAL 0.1 mg/dL (0.2-1); CALCIUM 8.5 mg/dL (8.5-10.1); CHLORIDE 108 mmol/L (98-107); CO2 28 mmol/L (21-32); GLUCOSE,RANDOM 98 mg/dL (74-106); POTASSIUM 4.6 mmol/L (3.5-5.1); SGOT/AST 19 U/L (15-37); SGPT/ALT 36 U/L (13-61); SODIUM 142 mmol/L (136-145); TOT PROT 6.2 g/dl (6.4-8.2)
[2019-10-13] MEDS ORDERED: NITROGLYCERIN SUBLINGUAL 1/200 0.3 MG BTL SL PRN (04:23)
[2019-10-13] MEDS ORDERED: LORazepam 2 MG/ML SDV VIAL IVPUSH ONE (04:30)
[2019-10-13] MEDS ORDERED: LORazepam 2 MG/ML SDV VIAL ONE (05:31)
--- NOTE | 2019-10-13 05:37 | PN ---
Teaching Attending Note Name of Resident: Sarina Roy ATTENDING PHYSICIAN STATEMENT I saw and evaluated the patient. I reviewed the resident's note and discussed the case with the resident. I agree with the resident's findings and plan as documented. SUBJECTIVE: 49-year-old male with a history of hypertension, dyslipidemia, polysubstance abuse including EtOHdrinking about 1 pint of liquor per daylast drink was 10/12 at 2 PM, K2 smoking last time 10/12/2019. Patient denied any cocaine use. He was complaining of chest pain which started around the same time that he was drinking and smoking K2. It is still present not associated with significant shortness of breath. Patient reports that he feels generally ill. Denied any significant diarrhea or vomiting. No changes in his urinary habits. OBJECTIVE: On physical exam patient was appearing uncomfortable however nontoxic.Tremulous. Appears to be diaphoretic, lethargic, did not cooperate with physical exam very much. Abdomen was soft, nontender. Lungs were clear to auscultation. Cardiac exam showed S1, S2 no murmurs, gallops appreciated. No rashes noted, no lower extremity edema. Abnormal Lab Results 10/13/19 10/13/19 00:30 00:30 Eosinophils % 5.6 H Chloride 108 H Anion Gap 6 L Total Bilirubin 0.1 L Alkaline Phosphatase 146 H Total Protein 6.2 L Imaging studies reviewed Chest x-ray reviewed, sharp costophrenic angles bilaterally no significant infiltrates noted. EKG showed normal sinus rhythm with no ischemic changes. ASSESSMENT AND PLAN: 49-year-old male polysubstance abuser with chest pain. Should rule out ACS, in light of recent K2 use.EtOH use, appears to be in withdrawal as it is very tremulous. Admit to [facility] Urine toxicology and EtOH level IV fluid hydration Check electrolytes and replete PRN CIWA protocol Banana bag Thiamine, folate, multivitamin Librium protocol Trend troponin Transthoracic echo Right upper quadrant ultrasound given elevated alkaline phosphatase Cardiology evaluation Detox upon discharge. Should monitor vital signs closely.
--- NOTE | 2019-10-13 05:42 | HP ---
CHIEF COMPLAINT:Chest Pain PCP: None HISTORY OF PRESENT ILLNESS: 49 M PMH of HTN, HLD, Polysubstance Abuse (cocaine, K2, alcohol), schizophrenia , PTSD, depression, anxiety who presents today with chest pain. Patient reports chest pain was intermittent today, localizing to the midsternum and radiating down to this right lower quadrant of the abdomen. He did not associate his chest pain with any changes in breathing or shortness of breath. The pain occurs both at rest and with exertion, at the time of exam he was having mild chest pain, which he described as throbbing. He denies any fever, chills, cough , abdominal pain, or GERD. His last substance use today was K2 and alcohol at 2pm on the day of admission. ER course was notable for: (1) Chest X-Ray was completed, did not show any acute infiltrate or cardiomegaly (2) Initial troponin was <0.02. Alcohol level was 3. (3) EKG was completed: NSR, QTc 457 Recent Travel: None PAST MEDICAL HISTORY: HTN, HLD, Polysubstance Abuse (cocaine, K2, marijuana, alcohol), schizophrenia, PTSD, depression, anxiety PAST SURGICAL HISTORY: Denies FAMILY MEDICAL HISTORY: Denies any cardiac history, diabetes, cancer/malignancy in family Social History: Smoking: Current smoker, 20 pack year history Alcohol: Normally drinks about 5 pints a day Drugs: K2, marijuana, cocaine. Last used K2 today Allergies Fish Containing Products Allergy (Verified 10/10/19 00:06) No Known Drug Allergies Allergy (Verified 10/10/19 00:06) peanut Allergy (Verified 10/10/19 00:06) pepper (genus Capsicum) Allergy (Verified 10/10/19 00:06) HOME MEDICATIONS: Home Medications Medication Instructions Recorded Bupropion HCl [Wellbutrin -] 150 mg PO BID 07/05/19 Lansoprazole [Prevacid] 15 mg PO DAILY 07/05/19 Trazodone HCl 150 mg PO HS 07/05/19 clonazePAM [Klonopin -] 0.5 mg PO TID 07/05/19 Chlorpromazine [Thorazine -] 100 mg PO DAILY 07/12/19 Gabapentin [Neurontin -] 300 cap PO DAILY 07/12/19 Acetaminophen [Tylenol] 325 mg PO TID PRN 10/05/19 Aripiprazole 10 mg PO 10/05/19 Divalproex *ER* [Depakote *ER* -] 1 tablet PO BID 10/05/19 Doxepin HCl [Sinequan -] 10 mg PO HS 10/05/19 Famotidine 20 mg PO DAILY 10/05/19 Folic Acid 1 mg PO DAILY 10/05/19 Multivitamins [Multivit ([facility] 1 tablet PO DAILY 10/05/19 Formulary)] Omeprazole 20 mg PO DAILY 10/05/19 Prazosin HCl 1 mg PO HS 10/05/19 Thiamine HCl [Vitamin B-1] 1 tablet PO DAILY 10/05/19 Wellbutrin Xl - 150 mg PO DAILY 10/05/19 REVIEW OF SYSTEMS CONSTITUTIONAL: Absent: fever, chills, diaphoresis, generalized weakness, malaise, loss of appetite, weight change HEENT: Absent: rhinorrhea, nasal congestion, throat pain, throat swelling, difficulty swallowing, mouth swelling, ear pain, eye pain, visual changes CARDIOVASCULAR: Present: chest pain Absent: syncope, palpitations, irregular heart rate, lightheadedness, peripheral edema RESPIRATORY: Absent: cough, shortness of breath, dyspnea with exertion, orthopnea, wheezing, stridor, hemoptysis GASTROINTESTINAL: Absent: abdominal pain, abdominal distension, nausea, vomiting, diarrhea, constipation, melena, hematochezia GENITOURINARY: Absent: dysuria, frequency, urgency, hesitancy, hematuria, flank pain, genital pain MUSCULOSKELETAL: Absent: myalgia, arthralgia, joint swelling, back pain, neck pain SKIN: Absent: rash, itching, pallor HEMATOLOGIC/IMMUNOLOGIC: Absent: easy bleeding, easy bruising, lymphadenopathy, frequent infections ENDOCRINE: Absent: unexplained weight gain, unexplained weight loss, heat intolerance, cold intolerance NEUROLOGIC: Absent: headache, focal weakness or paresthesias, dizziness, unsteady gait, seizure, mental status changes, bladder or bowel incontinence PSYCHIATRIC: Absent: anxiety, depression, suicidal or homicidal ideation, hallucinations. PHYSICAL EXAMINATION Vital Signs - 24 hr 10/12/19 22:58 Temperature 98.9 F Pulse Rate 95 H Respiratory 20 Rate Blood Pressure 131/86 O2 Sat by Pulse 98 Oximetry (%) GENERAL: Awake, alert, and fully oriented, in no acute distress. Initially sleeping, but was easily arousable. HEAD: Normal with no signs of trauma. EYES: EOMI EARS, NOSE, THROAT: Moist Mucous membranes NECK: Normal range of motion, supple without JVD LUNGS: Breath sounds equal, clear to auscultation bilaterally. HEART: Regular rate and rhythm, normal S1 and S2 without murmur, rub or gallop. ABDOMEN: Soft, nontender, not distended, normoactive bowel sounds EXTREMITIES: 2+ pulses, warm, well-perfused. No calf tenderness. No peripheral edema. NEUROLOGICAL: Cranial nerves II-XII grossly in tact. PSYCHIATRIC: Cooperative. Good eye contact. Appropriate mood and affect. Laboratory Results - last 24 hr 10/13/19 10/13/19 10/13/19 00:30 00:30 00:30 WBC 8.9 RBC 4.84 Hgb 13.5 Hct 40.5 MCV 83.7 MCH 27.8 MCHC 33.2 RDW 15.1 Plt Count 408 D MPV 7.6 Absolute Neuts (auto) 5.3 Neutrophils % 60.1 Lymphocytes % 24.5 Monocytes % 9.1 Eosinophils % 5.6 H Basophils % 0.7 Nucleated RBC % 0 PT with INR INR PTT (Actin FS) D-Dimer < 215 Sodium 142 Potassium 4.6 Chloride 108 H Carbon Dioxide 28 Anion Gap 6 L BUN 11.0 Creatinine 1.0 Est GFR (CKD-EPI)AfAm 100.55 Est GFR (CKD-EPI)NonAf 86.76 Random Glucose 98 Calcium 8.5 Total Bilirubin 0.1 L AST 19 ALT 36 Alkaline Phosphatase 146 H Creatine Kinase 191 Creatine Kinase Index 1.6 CK-MB (CK-2) 3.1 Troponin I < 0.02 Total Protein 6.2 L Albumin 3.4 Alcohol, Quantitative < 3 10/13/19 00:30 WBC RBC Hgb Hct MCV MCH MCHC RDW Plt Count MPV Absolute Neuts (auto) Neutrophils % Lymphocytes % Monocytes % Eosinophils % Basophils % Nucleated RBC % PT with INR 12.30 INR 1.04 PTT (Actin FS) 30.6 D-Dimer Sodium Potassium Chloride Carbon Dioxide Anion Gap BUN Creatinine Est GFR (CKD-EPI)AfAm Est GFR (CKD-EPI)NonAf Random Glucose Calcium Total Bilirubin AST ALT Alkaline Phosphatase Creatine Kinase Creatine Kinase Index CK-MB (CK-2) Troponin I Total Protein Albumin Alcohol, Quantitative ASSESSMENT/PLAN: 49 M PMH of HTN, HLD, Polysubstance Abuse (cocaine, K2, alcohol), schizophrenia , PTSD, depression, anxiety who presents today with chest pain. 1) Chest pain- rule out ACS -Sublingual Nitroglycerin ordered -Troponin negative, trend trops -Echo ordered -Continous cardiac monitoring -NS @ 100 ml/hr -Cardiology consulted, appreciate recs 2) Hx of PSA -Hx of cocaine, K2, marijuana, alcohol abuse -Last used substances: K2 and alcohol @ 2pm -CIWA/librium protocol, CIWA score of 3 -Banana bag, thiamine, folate, multivitam -Urine toxicology ordered, EtOh level=3 -Addiction medicine consulted, appreciate recs 3)Elevated Alkaline Phosphatase -Right upper quadrant U/S F: NS@ 100 ml/hr E: Monitor CMP N: NPO Dispo: Admitted to tele observation Visit type - Emergency Visit Emergency Visit: Yes ED Registration Date: 10/13/19 Care time: The patient presented to the Emergency Department on the above date and was hospitalized for further evaluation of their emergent condition. - New Patient This patient is new to me today: Yes Date on this admission: 10/13/19 - Critical Care Critical Care patient: No ATTENDING PHYSICIAN STATEMENT I saw and evaluated the patient. I reviewed the resident's note and discussed the case with the resident. I agree with the resident's findings and plan as documented. SUBJECTIVE: OBJECTIVE: ASSESSMENT AND PLAN:
[2019-10-13] MEDS ORDERED: HEPARIN NA (PORCINE) 5,000 UNITS/ML 1ML VIAL SQ SCH (06:00)
[2019-10-13] MEDS ORDERED: FOLIC ACID INJECTION - 1 MG, THIAMINE HCL 100 MG, MULTIVIT INJECTION ADULT 10 ML in SOD... IVPB ONE (06:37)
[2019-10-13] MEDS ORDERED: chlordiazePOXIDE HCL 10 MG CAPSULE PO PRN (06:45)
[2019-10-13] MEDS ORDERED: SODIUM CHLORIDE 1,000 ML IV SCH (07:30)
[2019-10-13 07:31] LABS: BASO % 0.4 % (0-2.0); EOS % 6.3 % (0-4.5); HEMATOCRIT 41.9 % (35.4-49); HEMOGLOBIN 13.9 GM/dL (11.7-16.9); LYMPH % 21.7 % (8-40); MCH 27.6 pg (25.7-33.7); MCHC 33.1 g/dl (32.0-35.9); MEAN CELL VOLUME 83.4 fl (80-96); MEAN PLT VOLUME 7.5 fl (7.5-11.1); MONO % 10.4 % (3.8-10.2); NEUT % 61.2 % (42.8-82.8); PLATELET COUNT 395 K/MM3 (134-434); RBC 5.03 M/mm3 (4.00-5.60); RDW 14.9 % (11.9-15.9); WHITE BLOOD COUNT 8.3 K/mm3 (4.0-10.0)
[2019-10-13 08:07] LABS: ANION GAP 6 MMOL/L (8-16); BLOOD UREA NITROGEN 12.5 mg/dL (7-18); CALCIUM 8.9 mg/dL (8.5-10.1); CHLORIDE 108 mmol/L (98-107); CO2 27 mmol/L (21-32); CREATININE 0.8 mg/dL (0.55-1.3); GLUCOSE,RANDOM 96 mg/dL (74-106); POTASSIUM 4.2 mmol/L (3.5-5.1); SODIUM 141 mmol/L (136-145)
[2019-10-13] MEDS ORDERED: MULTIVITAMINS (DAILY MVI) TABLET (FP) PO SCH (10:00)
[2019-10-13] MEDS ORDERED: THIAMINE HCL 200 MG/2 ML VIAL IVPB SCH (10:00)
--- NOTE | 2019-10-13 10:42 | EKG ---
Test Reason : Blood Pressure : / mmHG Vent. Rate : 092 BPM Atrial Rate : 092 BPM P-R Int : 132 ms QRS Dur : 090 ms QT Int : 370 ms P-R-T Axes : 054 031 051 degrees QTc Int : 457 ms NORMAL SINUS RHYTHM NORMAL ECG WHEN COMPARED WITH ECG OF 10-OCT-2019 03:42, NO SIGNIFICANT CHANGE WAS FOUND Confirmed by Porfirio Hubbard MD ([id number]) on 10/13/2019 10:42:00 AM Referred By: Confirmed By:Profirio Hubbard MD
--- NOTE | 2019-10-13 12:22 | HOSP ---
Subjective - Review of Symptoms Events since last encounter: Left AMA prior to evaluating/examining. Physical Examination Vital Signs: Vital Signs Temperature 98.9 F 10/12/19 22:58 Pulse Rate 95 H 10/12/19 22:58 Respiratory Rate 20 10/12/19 22:58 Blood Pressure 131/86 10/12/19 22:58 O2 Sat by Pulse Oximetry (%) 98 10/12/19 22:58 Labs: CBC, BMP 10/13/19 06:53 10/13/19 06:53
[2019-10-13] MEDS ORDERED: chlordiazePOXIDE HCL 25 MG CAPSULE PO SCH (13:00)
[2019-10-14] MEDS ORDERED: FOLIC ACID 1 MG TABLET (FP) PO SCH (10:00)
[2019-10-15] MEDS ORDERED: chlordiazePOXIDE 5 MG CAPSULE PO SCH (05:00)
[2019-10-16] MEDS ORDERED: chlordiazePOXIDE HCL 10 MG CAPSULE PO PRN
[2019-10-16] MEDS ORDERED: chlordiazePOXIDE HCL 10 MG CAPSULE PO SCH (05:00)
[2019-10-17] MEDS ORDERED: chlordiazePOXIDE HCL 10 MG CAPSULE PO ONE (05:00)
== END 2019-10-13 10:35 | disposition left against medical advice (07) ==
LOC: JER 22:46 → JERBED 10-13 03:13
PROVIDERS: ADMIT Internal Medicine; ATTEND Internal Medicine
PROC: 3E033GC Introduction of Other Therapeutic Substance into Peripheral Vein, Percutaneous Approach (ICD-10-PCS; principal; 2019-10-13)
PROC: 3E0337Z Introduction of Electrolytic and Water Balance Substance into Peripheral Vein, Percutaneous Approach (ICD-10-PCS; 2019-10-13)
PROC: 3E013GC Introduction of Other Therapeutic Substance into Subcutaneous Tissue, Percutaneous Approach (ICD-10-PCS; 2019-10-13)
DX: R07.89 Other chest pain (principal); E78.5 Hyperlipidemia, unspecified; F10.20 Alcohol dependence, uncomplicated; F14.20 Cocaine dependence, uncomplicated; F12.20 Cannabis dependence, uncomplicated; F17.210 Nicotine dependence, cigarettes, uncomplicated; R74.0 Nonspecific elevation of levels of transaminase and lactic acid dehydrogenase [LDH]; Z91.010 Allergy to peanuts; Z91.013 Allergy to seafood; Z91.018 Allergy to other foods
CPT/HCPCS: 36415; 71045-TC-FY; 80048; 80053; 80307; 82550; 82553; 82962; 84484; 85025; 85379; 85610; 85730; 93005; 93010; 96361; 96372; 96374; 99285-25; G0378; J1644; J7030

== ENCOUNTER 2019-10-29 07:27 | Emergency (ER) | payer OTHER ==
[2019-10-29 07:38] VITALS: BP 103/72; PULSE 86; TEMP 97.6; BMI 31.1
--- NOTE | 2019-10-29 07:54 | PDOC ---
History of Present Illness - General Chief Complaint: Substance Abuse Stated Complaint: DRUG ABUSE Time Seen by Provider: 10/29/19 07:53 History Source: Patient, Old Records Exam Limitations: Intoxication - History of Present Illness Initial Comments: 10/29/19 07:53 Rhett Auguste is a 49M with H alcohol, marijuana/K2, cocaine use, recently admitted for tele/obs at [facility] for chest pain, presenting with intoxication and chest pain. Patient is intoxicated at time of exam, requires repeated stimulation to get history. Reports 3 hours ago use a bag of K2, and shortly after had some chest pain and syncopized, unsure if he hit his head but denies any neck, head, or bodily pain. Chest pain described as sharp and parasternal on the right, non- radiating, constant, still has it. Denies any SOB, palpitations, inciting injury. Also associated with N/V and abdominal pain, denies C/D, urinary sx. Denies any IVDA or cocaine use at this time. Drinks 5 pints vodka each day, last time was this morning. Denies any withdrawal seizures but has history of tremors. Denies any withdrawal symptoms at this time. Past History - Past Medical History Allergies/Adverse Reactions: Allergies Allergy/AdvReac Type Severity Reaction Status Date / Time Egg Derived Allergy Swelling Verified 10/30/19 09:04 Fish Containing Products Allergy Verified 10/10/19 00:06 peanut Allergy Verified 10/10/19 00:06 pepper (genus Capsicum) Allergy Verified 10/10/19 00:06 Home Medications: Ambulatory Orders Bupropion HCl [Wellbutrin -] 150 mg PO BID 07/05/19 Lansoprazole [Prevacid] 15 mg PO DAILY 07/05/19 Trazodone HCl 150 mg PO HS 07/05/19 clonazePAM [Klonopin -] 0.5 mg PO TID 07/05/19 Chlorpromazine [Thorazine -] 100 mg PO DAILY 07/12/19 Gabapentin [Neurontin -] 300 cap PO DAILY 07/12/19 Acetaminophen [Tylenol] 325 mg PO TID PRN 10/05/19 Aripiprazole 10 mg PO 10/05/19 Bupropion HCl [Wellbutrin Xl -] 150 mg PO DAILY 10/05/19 Divalproex *ER* [Depakote *ER* -] 1 tablet PO BID 10/05/19 Doxepin HCl [Sinequan -] 10 mg PO HS 10/05/19 Famotidine 20 mg PO DAILY 10/05/19 Folic Acid 1 mg PO DAILY 10/05/19 Multivitamins [Multivit ([facility] Formulary)] 1 tablet PO DAILY 10/05/19 Omeprazole 20 mg PO DAILY 10/05/19 Prazosin HCl 1 mg PO HS 10/05/19 Thiamine HCl [Vitamin B-1] 1 tablet PO DAILY 10/05/19 Anemia: No Asthma: No Cancer: No Cardiac Disorders: No CVA: No COPD: No CHF: No Dementia: No Diabetes: No GI Disorders: No Disorders: No HTN: Yes Hypercholesterolemia: Yes Kidney Stones: No Liver Disease: No Seizures: No Thyroid Disease: No - Surgical History Abdominal Surgery: No Appendectomy: No Cardiac Surgery: No Cholecystectomy: No Lung Surgery: No Neurologic Surgery: No - Reproductive History Testicular Surgery: No - Psycho Social/Smoking Cessation Hx Smoking History: Current every day smoker Have you smoked in the past 12 months: No Number of Cigarettes Smoked Daily: 20 Cigars Per Day: 0 Information on smoking cessation initiated: No 'Breaking Loose' booklet given: 10/05/19 Hx Alcohol Use: Yes Drug/Substance Use Hx: Yes (K2) Substance Use Type: Alcohol, Cocaine, Prescribed (SBX) Hx Substance Use Treatment: No Review of Systems - Review of Systems Able to Perform ROS?: Yes Constitutional: No: Chills, Fever HEENTM: No: Blurred Vision, Double Vision, Throat Pain, Throat Swelling, Dental Problems Respiratory: No: Cough, Shortness of Breath, Hemoptysis Cardiac (ROS): Yes: Chest Pain, Syncope. No: Irregular Heart Rate ABD/GI: Yes: Nausea, Vomiting, Abdominal cramping. No: Poor Appetite, Poor Fluid Intake : No: Symptoms Reported Musculoskeletal: No: Symptoms Reported Integumentary: No: Symptoms Reported Neurological: No: Numbness, Paresthesia, Seizure, Tingling Psychiatric: Yes: Anxiety (fear of needles) Endocrine: No: Symptoms Reported Hematologic/Lymphatic: No: Symptoms Reported All Other Systems: Reviewed and Negative *Physical Exam - Vital Signs Last Vital Signs Temp Pulse Resp BP Pulse Ox 97.6 F 86 16 103/72 100 10/29/19 07:34 10/29/19 07:34 10/29/19 07:34 10/29/19 07:34 10/29/19 07:34 - Physical Exam General Appearance: Yes: Nourished, Appropriately Dressed, Disheveled, Mild Distress, Alcohol on Breath, Intoxicated, Other (reclining in bed sleeping, arousable to tactile and vocal stimulus) HEENT: positive: EOMI, AMARIS, Normal ENT Inspection, Normal Voice, Symmetrical, Other (NCAT). negative: Scleral Icterus (R), Scleral Icterus (L), Muffled/ Hoarse voice, Pharyngeal Erythema, Tonsillar Exudate, Tonsillar Erythema Neck: positive: Trachea midline, Supple. negative: Tender, Rigid, Tender lateral, Tender midline Respiratory/Chest: positive: Lungs Clear, Normal Breath Sounds. negative: Chest Tender, Respiratory Distress, Accessory Muscle Use, Crackles, Rales, Rhonchi, Stridor, Wheezing Cardiovascular: positive: Regular Rhythm, Regular Rate. negative: Edema, Murmur Gastrointestinal/Abdominal: positive: Normal Bowel Sounds, Flat, Soft. negative : Tender, Organomegaly, Distended, Guarding, Rebound, Hernia Musculoskeletal: positive: Normal Inspection. negative: CVA Tenderness, Vertebral Tenderness Extremity: positive: Normal Capillary Refill, Normal Inspection, Normal Range of Motion, Pelvis Stable. negative: Tender, Pedal Edema, Swelling Integumentary: positive: Normal Color, Dry, Warm. negative: Swelling, Bruising Neurologic: positive: Fully Oriented, Alert, Normal Mood/Affect, Normal Response ED Treatment Course - LABORATORY CBC & Chemistry Diagram: 10/29/19 09:22 10/29/19 09:22 Medical Decision Making - Medical Decision Making 10/29/19 09:36 Patient has history of polysubstance abuse and recent chest pain admission presenting with alcohol/K2/marijuana use and subsequent chest pain and syncope. Has been evaluated for cardiac pathology a weeks ago, but has not had ECHO. Presentation concerning for cardiac etiology of syncope and chest pain, will perform cardiac evaluation with CXR and order ECHO. Given syncope and intoxication will need imaging of head/neck. With further questioning patient admits to IV use and possible cocaine use. VS stable, non-tachycardic, normotensive, endocarditis considered but not supported by VS.. Currently intoxicated, will obtain labs, perform frequent re-examination, and re-evaluate. - CBC/CMP - CP/ECG/CXR for eval chest pain - CT head/c-spine for eval trauma s/p syncope - ECHO for eval cardiac structural changes CXR preliminary read demonstrates mediastinal widening from prior 3 weeks ago. 10/29/19 09:42 Patient has fear of needles, high resistance to providers drawing blood. Patient would like HIV testing, will attempt to draw labs for this. 10/29/19 10:49 Social work seeing patient. Labs notable for: - CMP WNL - CBC WNL - CP WNL No acute pathology noted on CT head or c-spine. Pending ECHO. 10/29/19 11:39 Patient ambulatory in ED with normal gait, speaking in complete sentences, demonstrates insight into medical condition without obvious impairment. Discussed with attending, patient agrees to AMA. Discharge - Discharge Information Problems reviewed: Yes Clinical Impression/Diagnosis: Polysubstance abuse Chest pain Qualifiers: Chest pain type: unspecified Qualified Code(s): R07.9 - Chest pain, unspecified Condition: Improved Disposition: AGAINST MEDICAL ADVICE - Follow up/Referral - Patient Discharge Instructions - Post Discharge Activity
--- NOTE | 2019-10-29 08:04 | PDOC ---
*Physical Exam - Vital Signs Last Vital Signs Temp Pulse Resp BP Pulse Ox 97.6 F 86 16 103/72 100 10/29/19 07:34 10/29/19 07:34 10/29/19 07:34 10/29/19 07:34 10/29/19 07:34 ED Treatment Course - LABORATORY CBC & Chemistry Diagram: 10/29/19 09:22 10/29/19 09:22 Medical Decision Making - Medical Decision Making 10/29/19 08:01 Patient seen as pre-attending with Dr. Herman (PGY-1) and Dr. Lucio (Attending) 49 y/o male BIBEMS after being found down on the [address] in [place]. Told EMS he did K2 yesterday and was evaluated at [facility]. H/o ETOH, Heroin, Cocaine Patient c/o chest pain, states it started yesterday after taking K2 states he passed out, non-qualifiable, endorses shortness of breath, no lightheadedness, no palpitations. VS unremarkable PE significant for reproducible substernal CP, PEERLA, no signs of head/ abdominal trauma. Will evaluate for r/o ACS, arrythmia, also consider GERD, esophageal spasm, MSK. As patient was found down As per EMR, evaluated with similar history/SiSx on 10/13. Admitted for cardiac evaluation however patient left AMA. Also per EMR, patient was evaluated at [facility] this morning but then left AMA. 10/29/19 08:17 EKG w/o acute ischemic change documented in EKG section of EMR. 10/29/19 10:30 Case d/w social work - patient given clothing, list of shelters 10/29/19 11:21 CXR shows widened mediastinum - low clinical suspicion for dissection - normal BP, CP non-radiating and reproducible 10/29/19 11:37 Patient ambulating w/steady gait, normal speech, clinically sober, requesting AMA Discharge - Discharge Information Problems reviewed: Yes Clinical Impression/Diagnosis: Polysubstance abuse Chest pain Qualifiers: Chest pain type: unspecified Qualified Code(s): R07.9 - Chest pain, unspecified Condition: Fair Disposition: AGAINST MEDICAL ADVICE - Follow up/Referral - Patient Discharge Instructions - Post Discharge Activity
[2019-10-29 09:47] LABS: BASO % 0.4 % (0-2.0); EOS % 2.6 % (0-4.5); HEMATOCRIT 41.6 % (35.4-49); HEMOGLOBIN 13.8 GM/dL (11.7-16.9); LYMPH % 25.2 % (8-40); MCH 27.8 pg (25.7-33.7); MCHC 33.2 g/dl (32.0-35.9); MEAN CELL VOLUME 83.8 fl (80-96); MEAN PLT VOLUME 8.1 fl (7.5-11.1); MONO % 6.9 % (3.8-10.2); NEUT % 64.9 % (42.8-82.8); PLATELET COUNT 285 K/MM3 (134-434); RBC 4.97 M/mm3 (4.00-5.60); RDW 16.5 % (11.9-15.9); WHITE BLOOD COUNT 6.6 K/mm3 (4.0-10.0)
[2019-10-29 10:25] LABS: ALBUMIN 3.6 g/dl (3.4-5.0); BILIRUBIN,TOTAL 0.4 mg/dL (0.2-1); BLOOD UREA NITROGEN 11.8 mg/dL (7-18); CALCIUM 8.5 mg/dL (8.5-10.1); CREATININE 0.8 mg/dL (0.55-1.3); PHOSPHOROUS 3.4 mg/dL (2.5-4.9); POTASSIUM 4.2 mmol/L (3.5-5.1); TOT PROT 7.1 g/dl (6.4-8.2)
--- NOTE | 2019-10-29 11:54 | PDOC ---
Attending Attestation - Resident Resident Name: [email or web address] - ED Attending Attestation I have performed the following: I have examined & evaluated the patient, The case was reviewed & discussed with the resident, I agree w/resident's findings & plan, Exceptions are as noted - HPI HPI: 10/29/19 11:54 49 years old past medical history significant for polysubstance abuse alcohol cocaine marijuana K2 presents status post using K2 this morning developed chest pain was found sleeping by EMS brought to the emergency department no longer endorsing chest pain Denies active chest pain shortness of breath nausea vomiting diarrhea - Physicial Exam PE: 10/29/19 11:55 Vitals: Triage Vital signs reviewed General Appearance: Unkept Head: Atraumatic, Eyes: Pupils equal reactive round, extraocular movement intact Cardiac: Regular rate and rhythym, no murmurs, no rubs, no gallops, Lungs: Clear to auscultation bilateral, good air movement bilaterally, Abdomen: Soft, non distended, normal bowel sounds, non tender to palpation Extremities: Full range of motion to all extremities, no cyanosis, clubbing, or edema Skin: Warm and dry, no rashes or lesions, no rash, no petechiae Neuro: AOX3; cranial Nerves 2-12 grossly intact, strength intact to all extremities, sensation intact to all extremities, gait normal Psych: Normal mood, normal affect - Medical Decision Making 10/29/19 11:55 EKG performed at 759 demonstrates normal sinus rhythm no ST elevations isolated T wave inversion lead III Unchanged from baseline Patient with recent admission for chest pain his work-up at that time was unremarkable he then signed out AMA today presents with chest pain in the context of K2 use His laboratory analysis unremarkable given the question of intoxication earlier versus possible syncope it was recommended that patient stay for further evaluation reevaluation patient is been observed in the emergency department 3 hours he is now clinically sober there is no slurred speech he is ambulating with steady gait he has no sustained nystagmus he has insight into his disease states he feels better he was admitted for this he wants to return home patient has signed AMA form Understands risks and benefits of leaving AGAINST MEDICAL ADVICE Recommend that he follow-up in our clinic Findings, need for follow-up and strict return structures discussed with patient.
--- NOTE | 2019-10-30 13:38 | EKG ---
Test Reason : Blood Pressure : / mmHG Vent. Rate : 071 BPM Atrial Rate : 071 BPM P-R Int : 150 ms QRS Dur : 096 ms QT Int : 390 ms P-R-T Axes : 039 015 021 degrees QTc Int : 423 ms NORMAL SINUS RHYTHM NORMAL ECG WHEN COMPARED WITH ECG OF 12-OCT-2019 22:55, NO SIGNIFICANT CHANGE WAS FOUND Confirmed by JESSICA PLAZA MD ([id number]) on 10/30/2019 1:37:48 PM Referred By: Confirmed By:JESSICA PLAZA MD
== END 2019-10-29 11:30 | disposition left against medical advice (07) ==
LOC: JER 07:27
DX: F19.10 Other psychoactive substance abuse, uncomplicated (principal); R07.9 Chest pain, unspecified; Z91.013 Allergy to seafood; Z91.010 Allergy to peanuts; Z91.012 Allergy to eggs
CPT/HCPCS: 36415; 70450-TC; 71045-TC-FY; 72125-TC; 80053; 80061; 82550; 82553; 83721; 83735; 84100; 84484; 85025; 93005; 93010; 99285-25

== ENCOUNTER 2019-10-29 16:42 | Inpatient (IN) | payer OTHER ==
[2019-10-29] MEDS ORDERED: SODIUM CHLORIDE 0.9% 500 ML INFUS.BAG IV ONE (17:13)
--- NOTE | 2019-10-29 17:14 | PDOC ---
History of Present Illness - General History Source: Patient Exam Limitations: No Limitations - History of Present Illness Initial Comments: Rhett Auguste is a 49 yo M w a hx of HTN, HLD, schizophrenia, PTSD, depression, anxiety, polysubstance abuse, alcohol, marijuana/K2, and cocaine use who AMA'ed earlier this morning. He originally presented with chest pain and syncope. He was recommended to be admitted for an echocardiogram. Patient left the hospital, did K2 three times since AMA'ing, and now returns with repeat of chest pain and near syncope saying he wants to be admitted because he is concerned something is wrong with his heart from all the substance abuse. Drinks 5 pints vodka each day, last time was this morning. Denies any withdrawal seizures but has history of tremors. Denies any withdrawal symptoms at this time. Denies nausea, vomiting, diaphoresis, radiation of pain, fevers, or recent IVDU. PCP: None PSH: None reported Allergies: Fish, peanuts, NKDA Social Hx: Smoking: Current smoker, 20 pack year history Alcohol: Normally drinks about 5 pints a day Drugs: K2, marijuana, cocaine. Last used K2 one hour ago <Binu Ngo - Last Filed: 10/29/19 18:27> <Vanessa Villanueva - Last Filed: 10/30/19 12:28> - General Chief Complaint: Chest Pain Stated Complaint: CHEST PAIN Time Seen by Provider: 10/29/19 16:55 Past History - Past Medical History Anemia: No Asthma: No Cancer: No Cardiac Disorders: No CVA: No COPD: No CHF: No Dementia: No Diabetes: No GI Disorders: No Disorders: No HTN: Yes Hypercholesterolemia: Yes Kidney Stones: No Liver Disease: No Seizures: No Thyroid Disease: No - Surgical History Abdominal Surgery: No Appendectomy: No Cardiac Surgery: No Cholecystectomy: No Lung Surgery: No Neurologic Surgery: No - Reproductive History Testicular Surgery: No - Psycho Social/Smoking Cessation Hx Smoking History: Current every day smoker Have you smoked in the past 12 months: No Number of Cigarettes Smoked Daily: 20 Cigars Per Day: 0 'Breaking Loose' booklet given: 10/05/19 Hx Alcohol Use: Yes Drug/Substance Use Hx: Yes (K2) Substance Use Type: Alcohol, Cocaine, Prescribed (SBX) Hx Substance Use Treatment: No <Binu Ngo - Last Filed: 10/29/19 18:27> <Vanessa Villanueva - Last Filed: 10/30/19 12:28> - Past Medical History Allergies/Adverse Reactions: Allergies Allergy/AdvReac Type Severity Reaction Status Date / Time Egg Derived Allergy Swelling Verified 10/30/19 09:04 Fish Containing Products Allergy Verified 10/10/19 00:06 peanut Allergy Verified 10/10/19 00:06 pepper (genus Capsicum) Allergy Verified 10/10/19 00:06 Home Medications: Ambulatory Orders Bupropion HCl [Wellbutrin -] 150 mg PO BID 07/05/19 Lansoprazole [Prevacid] 15 mg PO DAILY 07/05/19 Trazodone HCl 150 mg PO HS 07/05/19 clonazePAM [Klonopin -] 0.5 mg PO TID 07/05/19 Chlorpromazine [Thorazine -] 100 mg PO DAILY 07/12/19 Gabapentin [Neurontin -] 300 cap PO DAILY 07/12/19 Acetaminophen [Tylenol] 325 mg PO TID PRN 10/05/19 Aripiprazole 10 mg PO 10/05/19 Bupropion HCl [Wellbutrin Xl -] 150 mg PO DAILY 10/05/19 Divalproex *ER* [Depakote *ER* -] 1 tablet PO BID 10/05/19 Doxepin HCl [Sinequan -] 10 mg PO HS 10/05/19 Famotidine 20 mg PO DAILY 10/05/19 Folic Acid 1 mg PO DAILY 10/05/19 Multivitamins [Multivit ([facility] Formulary)] 1 tablet PO DAILY 10/05/19 Omeprazole 20 mg PO DAILY 10/05/19 Prazosin HCl 1 mg PO HS 10/05/19 Thiamine HCl [Vitamin B-1] 1 tablet PO DAILY 10/05/19 Review of Systems - Review of Systems Able to Perform ROS?: Yes Constitutional: Yes: Malaise. No: Fever HEENTM: Yes: Dental Problems. No: Eye Pain, Blurred Vision, Throat Pain Respiratory: No: SOB at Rest, Productive cough Cardiac (ROS): Yes: Chest Pain, Syncope ABD/GI: No: Diarrhea : No: Burning, Dysuria Musculoskeletal: No: Back Pain Integumentary: Yes: Bruising Neurological: No: Headache Psychiatric: Yes: Anxiety, Depression, Stressors, Emotional Problems Endocrine: No: Excessive Sweating Hematologic/Lymphatic: No: Blood Clots <Binu Ngo - Last Filed: 10/29/19 18:27> *Physical Exam - Physical Exam General Appearance: Yes: Nourished, Other (foul scent) HEENT: positive: Normal Voice Neck: positive: Supple Respiratory/Chest: positive: Lungs Clear Cardiovascular: positive: Regular Rhythm Vascular Pulses: Dorsalis-Pedis (R): 2+, Doralis-Pedis (L): 2+ Gastrointestinal/Abdominal: positive: Soft Rectal Exam: positive: deferred Musculoskeletal: positive: Normal Inspection Extremity: positive: Normal Capillary Refill Integumentary: positive: Normal Color Neurologic: positive: Respond to painful stimul <Binu Ngo - Last Filed: 10/29/19 18:27> - Vital Signs Last Vital Signs Temp Pulse Resp BP Pulse Ox 98.1 F 85 18 117/70 99 10/29/19 17:12 10/29/19 17:12 10/29/19 17:12 10/29/19 17:12 10/29/19 17:12 <Vanessa Villanueva - Last Filed: 10/30/19 12:28> ED Treatment Course - LABORATORY CBC & Chemistry Diagram: 10/29/19 18:30 <Vanessa Villanueva - Last Filed: 10/30/19 12:28> Medical Decision Making - Medical Decision Making Rhett Auguste is a 49 yo M w a hx of HTN, HLD, schizophrenia, PTSD, depression, anxiety, polysubstance abuse, alcohol, marijuana/K2, and cocaine use who AMA'ed earlier this morning. He originally presented with chest pain and syncope. He was recommended to be admitted for an echocardiogram. Patient left the hospital, did K2 three times since AMA'ing, and now returns with repeat of chest pain and near syncope saying he wants to be admitted because he is concerned something is wrong with his heart from all the substance abuse. Drinks 5 pints vodka each day, last time was this morning. Denies any withdrawal seizures but has history of tremors. Denies any withdrawal symptoms at this time. Denies nausea, vomiting, diaphoresis, radiation of pain, fevers, or recent IVDU. DDx IBNLT: Alcohol withdrawal, ACS, cardiac syncope vs dehydration, endocarditis , electrolyte/metabolic disturbance, HIV, intoxication Plan: Labs, urine, ekg, tele obs EKG: NS rate 78, QTc 430. Normal ECG Labs: Urine: Dispo: <Binu Ngo - Last Filed: 10/29/19 18:27> Discharge - Discharge Information Problems reviewed: Yes - Admission Yes <Binu Ngo - Last Filed: 10/29/19 18:27> - Admission Yes <Vanessa Villanueva - Last Filed: 10/30/19 12:28> - Discharge Information Clinical Impression/Diagnosis: Alcohol abuse Alcohol withdrawal Qualifiers: Complication of substance-induced condition: with unspecified complication Qualified Code(s): F10.239 - Alcohol dependence with withdrawal, unspecified Chest pain Qualifiers: Chest pain type: unspecified Qualified Code(s): R07.9 - Chest pain, unspecified Condition: Stable
--- NOTE | 2019-10-29 17:56 | PDOC ---
Attending Attestation - Resident Resident Name: Binu Ngo - ED Attending Attestation I have performed the following: I have examined & evaluated the patient, The case was reviewed & discussed with the resident, I agree w/resident's findings & plan - HPI HPI: 10/29/19 17:58 49 years old past medical history significant for polysubstance abuse alcohol cocaine marijuana K2 presents status post using K2 this morning developed chest pain was found sleeping by EMS brought to the emergency department no longer endorsing chest pain that started 3 hours ago. also endorses tremors and last etoh drink (5 pints of vodka) was at 2pm today. left AMA earlier today presenting today requesting admission, and amenable to admission for his chest pain/detox/alcohol w/d 10/29/19 18:19 - Physicial Exam PE: 10/29/19 17:58 Agree with the resident's HPI and PE as documented in the electronic medical record. disheveled, malodorous. alert [place]. EOMI, PERRL, nl conjunctiva, anicteric ; +tongue fasciculations. neck supple. lungs clear, +tachycardic abdomen soft nontender. no rebound, guarding. Back nontender. BROWN x4, no focal neuro deficits. No peripheral edema. normal color for ethnicity, WWP. +very tremulous. 10/29/19 18:20 - Medical Decision Making 10/29/19 17:56 Vital Signs Temp Pulse Resp BP Pulse Ox 98.1 F 85 18 117/70 99 10/29/19 17:12 10/29/19 17:12 10/29/19 17:12 10/29/19 17:12 10/29/19 17:12 DDx chest pain: ACS, coronary vasospasm, NSTEMI, arrhythmia, unstable angina, PE , dissection, PUD, esophageal spasm, GERD, gastritis, costochondritis, pneumonia , pleurisy, pericarditis/myocarditis. dehydration, electrolyte/metabolic derangements. etoh w/d, intoxication, sympathomimetic effects. Considered but clinically doubt based on HPI and PE: Low suspicion for pulmonary embolism or dissection. Vital signs reviewed, afebrile, nontoxic, normotensive. Patient appearing in alcohol withdrawal, no evidence of delirium. His last drink was 2 PM today. Now also endorses chest pain. We will give banana bag, Ativan 2 mg for alcohol withdrawal, We will also perform cardiac work-up including troponins, repeat labs and admission. reassuringly, trop neg and labs unremarkable tylenol for chest pain. also will give ativan, which could help with sx/as pt uses cocaine/K2/cannibis and other sympathomimetic agents Patient is amenable to admission and work-up for his chest pain. 10/29/19 18:20 10/29/19 19:02 10/29/19 19:05 Heart Score/ECG Review #1 ECG reviewed & interpreted by me at: 17:35 General ECG Interpretation: Sinus Rhythm, Normal Rate, Normal Intervals Compared to previous ECG there are: No significant change 10/29/19 17:58 EKG normal sinus rhythm 78 bpm, no interval abnormalities, narrow QRS, ST and T wave segments and morphology normal. Nonspecific T wave abnormalities
[2019-10-29] MEDS ORDERED: FOLIC ACID INJECTION - 1 MG, THIAMINE HCL 100 MG, MULTIVIT INJECTION ADULT 10 ML in SOD... IVPB ONE (18:18)
[2019-10-29 19:04] LABS: BASO % 0.6 % (0-2.0); EOS % 2.5 % (0-4.5); HEMATOCRIT 44.7 % (35.4-49); HEMOGLOBIN 14.7 GM/dL (11.7-16.9); LYMPH % 31.4 % (8-40); MCH 27.7 pg (25.7-33.7); MCHC 32.9 g/dl (32.0-35.9); MEAN PLT VOLUME 8.5 fl (7.5-11.1); MONO % 9.6 % (3.8-10.2); NEUT % 55.9 % (42.8-82.8); PLATELET COUNT 335 K/MM3 (134-434); RBC 5.32 M/mm3 (4.00-5.60); RDW 15.9 % (11.9-15.9); WHITE BLOOD COUNT 8.7 K/mm3 (4.0-10.0)
[2019-10-29] MEDS ORDERED: ACETAMINOPHEN 325 MG TABLET (FP) PO ONE (19:05)
--- NOTE | 2019-10-29 19:06 | PN ---
Teaching Attending Note Name of Resident: Julio Livingston ATTENDING PHYSICIAN STATEMENT I saw and evaluated the patient. I reviewed the resident's note and discussed the case with the resident. I agree with the resident's findings and plan as documented. SUBJECTIVE: Patient is a 49 year old man with a PMH of HTN, HLD, Tobacco use, Schizophrenia , PTSD, Depression, Anxiety, Polysubstance abuse (alcohol, marijuana/K2, cocaine ) who presents with chest pain and near syncope saying he wants to be admitted because he is concerned something is wrong with his heart from all the substance abuse. Complaining of right arm and leg tingling and pain in the left ankle after he fell down. He was seen in the ER earlier this morning for chest pain and syncope, but signed out AMA. Unsure if he hit his head when he had syncope, but denies any neck, head, or bodily pain. Chest pain described as sharp and parasternal on the right, non-radiating and constant. He had a CT of head and C-spine as well as CXR done in the morning before leaving AMA. After he left the hospital AMA, he did K2 three times and now returns with repeat of chest pain and near syncope. He drinks 5 pints vodka each day and last drink was this morning. Denies any withdrawal seizures but has history of tremors. Denies nausea, vomiting, fever, chills, headache, diarrhea, dysuria, diaphoresis, radiation of pain, SOB, dizziness or recent IVDU. No sick contacts or recent travels. OBJECTIVE: Alert, anxious and not orthostatic Vital Signs Period Temp Pulse Resp BP Sys/Henry Pulse Ox Last 24 Hr 98.1 F 85 18 117/70 99 HEENT: No Jaundice or discharge; +conjunctival injection, PERRLA, EOMI. Normocephalic, atraumatic. External ears are normal and hearing is grossly intact. No nasal discharge. Neck: Supple, nontender. No palpable adenopathy or thyromegaly. No JVD Chest: Good effort. Clear to auscultation and percussion. Heart: Regular. No S3, rub or murmur Abdomen: Not distended, soft, nontender and no HSM. No rebound or guarding. Normal bowel sounds. Ext: Peripheral pulses intact. No leg edema. tender left ankle. Skin: Warm and dry. No petechiae, rash or ecchymosis. Neuro: Alert. Oriented x3. No tremors or asterexis; CN 2-12 grossly intact. Sensation grossly intact in all four extremities and DTR are symmetric. Psych: Appropriate mood and affect. Good insight. Current Medications Generic Name Dose Route Start Last Admin Trade Name Freq PRN Reason Stop Dose Admin Folic Acid 1 mg/ Thiamine HCl 1,000 mls @ 125 mls/hr 10/29/19 18:18 100 mg/ Multivitamins/Minerals IVPB 10/30/19 02:17 10 ml/ Sodium Chloride ONCE ONE Home Medications Medication Instructions Recorded Bupropion HCl [Wellbutrin -] 150 mg PO BID 07/05/19 Lansoprazole [Prevacid] 15 mg PO DAILY 07/05/19 Trazodone HCl 150 mg PO HS 07/05/19 clonazePAM [Klonopin -] 0.5 mg PO TID 07/05/19 Chlorpromazine [Thorazine -] 100 mg PO DAILY 07/12/19 Gabapentin [Neurontin -] 300 cap PO DAILY 07/12/19 Acetaminophen [Tylenol] 325 mg PO TID PRN 10/05/19 Aripiprazole 10 mg PO 10/05/19 Bupropion HCl [Wellbutrin Xl -] 150 mg PO DAILY 10/05/19 Divalproex *ER* [Depakote *ER* -] 1 tablet PO BID 10/05/19 Doxepin HCl [Sinequan -] 10 mg PO HS 10/05/19 Famotidine 20 mg PO DAILY 10/05/19 Folic Acid 1 mg PO DAILY 10/05/19 Multivitamins [Multivit ([facility] 1 tablet PO DAILY 10/05/19 Formulary)] Omeprazole 20 mg PO DAILY 10/05/19 Prazosin HCl 1 mg PO HS 10/05/19 Thiamine HCl [Vitamin B-1] 1 tablet PO DAILY 10/05/19 Abnormal Lab Results 10/29/19 18:30 Magnesium 2.6 H Creatine Kinase 336 H ASSESSMENT AND PLAN: 1. Chest pain/Syncope - Both syncope and chest pain are likely related to acute effects of alcohol and illicit drugs. EKG in the morning was reported as NSR with isolated T wave inversion in lead III and no significant ST elevation. Troponin was negative. Repeat EKG is normal. Will admit to telemetry to rule out ACS and get ECHO and brain MRI. Will get xray of left ankle. Earlier before he signed out AMA he had a head CT scan which did not show any acute abnormality. No fracture or subluxation noted on C-spine CT, but showed multilevel degenerative disc disease, narrowing of foramen at C5-6 impinging on left C6 nerve root. Will consult Neurosurgery and Neurology. CXR showed cardiomegaly, unfolded aorta and wide mediastinum. HIV test and blood alcohol level are pending. Will continue comprehensive care for all of patients comorbid conditions. 2. Polysubstance/Alcohol abuse - Will continue to monitor for drug withdrawal. Implement [facility] [employer] alcohol withdrawal protocol and do neurochecks. Implement seizure, fall and aspiration precautions. Treat with IV banana bag, thiamine and folic acid and monitor electrolytes (Ca,Mg,K,P). Counseled patient about abstaining from alcohol and illicit drugs. Will consult dairy specialist and refer to alcohol/drug detox upon discharge. 3. Tobacco Use Counseled on risks associated with tobacco use. We will provide patient all the necessary assistance to facilitate smoking cessation and prescribe Nicotine patch. 3. Overweight Counseled on the risks associated with being overweight. Will provide patient all the necessary assistance, counseling and positive reinforcement to facilitate weight loss. Consult civil transportation engineer. 4. DVT prophylaxis - Lovenox 40 mg SQ q 24 hours. 5. Advance directives - Full code
--- NOTE | 2019-10-29 19:20 | PDOC ---
*Physical Exam - Vital Signs Last Vital Signs Temp Pulse Resp BP Pulse Ox 98.1 F 85 18 117/70 99 10/29/19 17:12 10/29/19 17:12 10/29/19 17:12 10/29/19 17:12 10/29/19 17:12 ED Treatment Course - LABORATORY CBC & Chemistry Diagram: 10/29/19 18:30 Medical Decision Making - Medical Decision Making 10/29/19 19:19 Pt received on sign out from Dr. Ngo. 49 y/o male hx of substance use disorder. Seen here earlier today but signed out AMA. Returned with multiple episodes of syncope. Admission pending. 10/29/19 19:37 D/w Dr. Livingston, who accepts the patient for admission. Discharge - Discharge Information Problems reviewed: Yes Clinical Impression/Diagnosis: Alcohol abuse Alcohol withdrawal Qualifiers: Complication of substance-induced condition: with unspecified complication Qualified Code(s): F10.239 - Alcohol dependence with withdrawal, unspecified Chest pain Qualifiers: Chest pain type: unspecified Qualified Code(s): R07.9 - Chest pain, unspecified Condition: Stable - Admission Yes - Follow up/Referral - Patient Discharge Instructions - Post Discharge Activity
[2019-10-29 19:40] LABS: MAGNESIUM 2.6 mg/dL (1.8-2.4); PHOSPHOROUS 3.6 mg/dL (2.5-4.9)
[2019-10-29] MEDS ORDERED: chlordiazePOXIDE HCL 10 MG CAPSULE PO PRN (21:20)
--- NOTE | 2019-10-29 21:25 | HP ---
CHIEF COMPLAINT: EtOH Withdrawal, Chest Pain, Syncope PCP: None HISTORY OF PRESENT ILLNESS: Pt is a 73 y.o. M w/ HTN, HLD, schizophrenia, PSA, PTSD, depression, anxiety and lower back pain presents with chest pain and withdrawal symptoms. Pt. was seen earlier in the ED and left AMA because he felt like "he was suffocating." Pt. states that he smoked K2 2x after leaving the ED and the chest pain returned so he came back. Pt. endorses having a syncopal episode. Pt. states that today he smoked crack-cocaine, marijuana, and K2 and drank alcohol. Pt. states that he has numbness/tingling in his right arm and right leg. Pt. states that he has right sided chest pain but is unable to describe it further. Pt. states he had nausea and vomiting earlier today but that that has resolved. Pt. denies any blood in his vomit. Pt. endorses L. ankle pain from a fall. Pt. endorses anxiety, tremors and dizziness, but denies auditory or visual hallucinations, ever having seizures or being intubated in the past. Pt. 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 Pt. states hes has been non-adherent to is medications because he does not have money to buy the medications and that he has no insurance. Pt. states he gets his drugs from his friends and the odd nd jobs he does. ER course was notable for: (1)HIV, CBC, electrolytes, EtOH level, trop (2) (3) Recent Travel: No PAST MEDICAL HISTORY: As above PAST SURGICAL HISTORY: Denies Social History: Smokin pack year Alcohol: 5 pints/ day of liquor Drugs: Crack-cocaine, marijuana, K2 Inhales, denies ever injecting Allergies Fish Containing Products Allergy (Verified 10/10/19 00:06) No Known Drug Allergies Allergy (Verified 10/10/19 00:06) peanut Allergy (Verified 10/10/19 00:06) pepper (genus Capsicum) Allergy (Verified 10/10/19 00:06) HOME MEDICATIONS: Home Medications Medication Instructions Recorded Bupropion HCl [Wellbutrin -] 150 mg PO BID 07/05/19 Lansoprazole [Prevacid] 15 mg PO DAILY 07/05/19 Trazodone HCl 150 mg PO HS 07/05/19 clonazePAM [Klonopin -] 0.5 mg PO TID 07/05/19 Chlorpromazine [Thorazine -] 100 mg PO DAILY 07/12/19 Gabapentin [Neurontin -] 300 cap PO DAILY 07/12/19 Acetaminophen [Tylenol] 325 mg PO TID PRN 10/05/19 Aripiprazole 10 mg PO 10/05/19 Bupropion HCl [Wellbutrin Xl -] 150 mg PO DAILY 10/05/19 Divalproex *ER* [Depakote *ER* -] 1 tablet PO BID 10/05/19 Doxepin HCl [Sinequan -] 10 mg PO HS 10/05/19 Famotidine 20 mg PO DAILY 10/05/19 Folic Acid 1 mg PO DAILY 10/05/19 Multivitamins [Multivit ([facility] 1 tablet PO DAILY 10/05/19 Formulary)] Omeprazole 20 mg PO DAILY 10/05/19 Prazosin HCl 1 mg PO HS 10/05/19 Thiamine HCl [Vitamin B-1] 1 tablet PO DAILY 10/05/19 REVIEW OF SYSTEMS As above PHYSICAL EXAMINATION Vital Signs - 24 hr 10/29/19 17:12 Temperature 98.1 F Pulse Rate 85 Respiratory 18 Rate Blood Pressure 117/70 O2 Sat by Pulse 99 Oximetry (%) GENERAL: Awake, alert, and oriented to name only, in mild distress, dishelveled , malodorouos HEAD: Normal with no signs of trauma. EYES: Pupils equal, round and reactive to light, extraocular movements intact, sclera anicteric, conjunctival injection. EARS, NOSE, THROAT: Ears normal, nares patent, oropharynx clear without exudates. Dry mucous membranes. NECK: Normal range of motion, supple without lymphadenopathy, JVD, or masses. LUNGS: Breath sounds equal, clear to auscultation bilaterally. No wheezes, and no crackles. No accessory muscle use. HEART: Regular rate and rhythm, normal S1 and S2 without murmur ABDOMEN: Soft, nontender, not distended, normoactive bowel sounds, no guarding, no rebound, no masses. No hepatomegaly or splenomegaly. MUSCULOSKELETAL: No CVA tenderness. Spinal and paraspinal tenderness at ~L2-L4 UPPER EXTREMITIES: 2+ radial pulses, warm, well-perfused. No cyanosis. No clubbing. No peripheral edema. LOWER EXTREMITIES: 2+ dorsal pedal pulses, warm, well-perfused. No calf tenderness. No peripheral edema. NEUROLOGICAL: No focal motor or tactile sensory deficits appreciated. 5/5 muscle strength throughout all extremities. Gait not assessed. PSYCHIATRIC: Cooperative. Good eye contact. SKIN: Warm, dry, normal turgor, no rashes or lesions noted. Laboratory Results - last 24 hr 10/29/19 10/29/19 10/29/19 18:30 18:30 18:30 WBC 8.7 RBC 5.32 Hgb 14.7 Hct 44.7 MCV 84.0 MCH 27.7 MCHC 32.9 RDW 15.9 Plt Count 335 MPV 8.5 Absolute Neuts (auto) 4.9 Neutrophils % 55.9 Lymphocytes % 31.4 D Monocytes % 9.6 Eosinophils % 2.5 Basophils % 0.6 Nucleated RBC % 0 Phosphorus 3.6 Magnesium 2.6 H Creatine Kinase 336 H Creatine Kinase Index 1.0 CK-MB (CK-2) 3.4 Troponin I < 0.02 Alcohol, Quantitative < 3 HIV 1&2 Antibody Screen Negative HIV P24 Antigen Negative ASSESSMENT/PLAN: Pt is a 73 y.o. M w/ HTN, HLD, schizophrenia, PSA, PTSD, depression, anxiety and lower back pain presents with chest pain and withdrawal symptoms. #EtOH Abuse CIWA: 13 c/w Librium protocol refer to [facility] on discharge for Detox and Rehab, as Pt. state that this is what he wants. Fall precautions Thiamin, Folate, IVF, Banana Bag HIV - #R/o ACS associated w/ Syncope CXR showed cardiomegaly, unfolded aorta and wide mediastinum. f/u Echo Trop -, f/u rpt. EKG unremarkable x 2 f/u Utox EtOH level less than 3 #L. Ankle Pain f/u X-ray #Paresthesias w/ lower back pain Head CT scan which did not show any acute abnormality. No fracture or subluxation noted on C-spine CT, but showed multilevel degenerative disc disease, narrowing of foramen at C5-6 impinging on left C6 nerve root. f/u consults to Neurosurgery and Neurology. #HTN #HLD #Schizophrenia #Depression #Anxiety Pt. 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 #FEN NS @ 83 monitor electrolytes and replete as needed Regular Diet #DVT Ppx. SCDs Visit type - Emergency Visit Emergency Visit: Yes ED Registration Date: 10/29/19 Care time: The patient presented to the Emergency Department on the above date and was hospitalized for further evaluation of their emergent condition. - New Patient This patient is new to me today: Yes Date on this admission: 10/29/19 - Critical Care Critical Care patient: No ATTENDING PHYSICIAN STATEMENT I saw and evaluated the patient. I reviewed the resident's note and discussed the case with the resident. I agree with the resident's findings and plan as documented. SUBJECTIVE: OBJECTIVE: ASSESSMENT AND PLAN:
[2019-10-29] MEDS ORDERED: chlordiazePOXIDE HCL 25 MG CAPSULE ONE (22:54)
[2019-10-29] MEDS ORDERED: LORazepam 2 MG/ML SDV VIAL ONE (22:55)
[2019-10-29] MEDS: chlordiazePOXIDE HCL 25 MG CAPSULE PO SCH (23:09)
[2019-10-29] MEDS: HEPARIN NA (PORCINE) 5,000 UNITS/ML 1ML VIAL SQ SCH (23:10)
[2019-10-30] MEDS: SODIUM CHLORIDE 1,000 ML IV SCH ×2 (00:38→05:40)
[2019-10-30] MEDS ORDERED: HEPARIN NA (PORCINE) 5,000 UNITS/ML 1ML VIAL SQ SCH (02:00)
[2019-10-30 03:20] VITALS: BMI 31.8
[2019-10-30] MEDS: chlordiazePOXIDE HCL 25 MG CAPSULE PO SCH (05:40)
[2019-10-30] MEDS: HEPARIN NA (PORCINE) 5,000 UNITS/ML 1ML VIAL SQ SCH ×2 (06:53→06:55)
[2019-10-30 09:14] VITALS: BP 127/85; PULSE 90; TEMP 98.2
[2019-10-30] MEDS ORDERED: FOLIC ACID 1 MG TABLET (FP) PO SCH (10:00)
[2019-10-30] MEDS ORDERED: THIAMINE HCL 100 MG TABLET (FP) PO SCH (10:00)
[2019-10-30] MEDS ORDERED: NICOTINE 14 MG/24 HOURS TOPICAL PATCH TD SCH (10:00)
[2019-10-30] MEDS ORDERED: DEXAMETHASONE SOD PHOSPHATE 4 MG/1 ML VIAL IVPUSH ONE (10:14)
--- NOTE | 2019-10-30 10:15 | PN ---
Progress Note (short form) - Note Progress Note: Vital Signs Temperature 98.2 F 10/30/19 09:14 Pulse Rate 90 10/30/19 09:14 Respiratory Rate 22 H 10/30/19 09:14 Blood Pressure 127/85 10/30/19 09:14 O2 Sat by Pulse Oximetry (%) 99 10/30/19 09:00 GENERAL: The patient is awake, alert, and fully oriented, in no acute distress. HEAD: Normal with no signs of trauma. EYES: PERRL, extraocular movements intact, sclera anicteric, conjunctiva clear. . ENT: Ears normal, oropharynx clear without exudates, moist mucous membranes. NECK: Trachea midline, full range of motion, supple. LUNGS: Breath sounds equal, clear to auscultation bilaterally, no wheezes, no crackles, no accessory muscle use. HEART: Regular rate and rhythm, S1, S2 without murmur, rub or gallop. ABDOMEN: Soft, nontender, nondistended, normoactive bowel sounds, no guarding, no rebound, no hepatosplenomegaly, no masses. EXTREMITIES: 2+ pulses, warm, well-perfused, no edema. NEUROLOGICAL: Cranial nerves II through XII grossly intact. Normal speech, gait not observed. PSYCH: Normal mood, normal affect. SKIN: Warm, dry, normal turgor, no rashes or lesions noted CBCD WBC 8.7 K/mm3 (4.0-10.0) 10/29/19 18:30 RBC 5.32 M/mm3 (4.00-5.60) 10/29/19 18:30 Hgb 14.7 GM/dL (11.7-16.9) 10/29/19 18:30 Hct 44.7 % (35.4-49) 10/29/19 18:30 MCV 84.0 fl (80-96) 10/29/19 18:30 MCHC 32.9 g/dl (32.0-35.9) 10/29/19 18:30 RDW 15.9 % (11.9-15.9) 10/29/19 18:30 Plt Count 335 K/MM3 (134-434) 10/29/19 18:30 MPV 8.5 fl (7.5-11.1) 10/29/19 18:30 CARDIAC ENZYMES Creatine Kinase 336 U/L (26-308) H 10/29/19 18:30 Troponin I < 0.02 ng/ml (0.00-0.05) 10/29/19 18:30 Current Medications Generic Name Dose Route Start Last Admin Trade Name Freq PRN Reason Stop Dose Admin Chlordiazepoxide HCl 10 mg 11/01/19 00:00 Librium - PO 11/01/19 23:59 Q12H PRN Signs/symptoms of Withdrawal Chlordiazepoxide HCl 10 mg 10/29/19 21:20 Librium - PO 10/31/19 23:59 Q8H PRN Signs/symptoms of Withdrawal Chlordiazepoxide HCl 25 mg 10/29/19 21:21 10/30/19 05:40 Librium - PO 10/30/19 21:22 25 mg Q8H ED Administration Chlordiazepoxide HCl 15 mg 10/31/19 05:00 Librium - PO 10/31/19 21:01 Q8H [facility]END[facility] SALE TO [facility] Chlordiazepoxide HCl 10 mg 11/01/19 05:00 Librium - PO 11/01/19 21:01 Q8H PENDING SALE TO [facility] Chlordiazepoxide HCl 10 mg 11/02/19 05:00 Librium - PO 11/02/19 05:01 ONCE ONE Dexamethasone Sodium Phosphate 4 mg 10/30/19 10:14 Decadron Injection - IVPUSH 10/30/19 10:15 ONCE ONE Folic Acid 1 mg 10/30/19 10:00 Folic Acid - PO DAILY [facility] Heparin Sodium (Porcine) 5,000 unit 10/29/19 22:00 10/30/19 06:55 Heparin - SQ Not Given TID [facility] TO [facility] Sodium Chloride 1,000 mls @ 83 mls/hr 10/29/19 21:15 10/30/19 05:40 Normal Saline - IV 83 mls/hr ASDIR [facility] Administration Nicotine 14 mg 10/30/19 10:00 Nicoderm Patch - TD DAILY [facility] Thiamine HCl 100 mg 10/30/19 10:00 Vitamin B1 - PO DAILY [facility] Home Medications Medication Instructions Recorded Bupropion HCl [Wellbutrin -] 150 mg PO BID 07/05/19 Lansoprazole [Prevacid] 15 mg PO DAILY 07/05/19 Trazodone HCl 150 mg PO HS 07/05/19 clonazePAM [Klonopin -] 0.5 mg PO TID 07/05/19 Chlorpromazine [Thorazine -] 100 mg PO DAILY 07/12/19 Gabapentin [Neurontin -] 300 cap PO DAILY 07/12/19 Acetaminophen [Tylenol] 325 mg PO TID PRN 10/05/19 Aripiprazole 10 mg PO 10/05/19 Bupropion HCl [Wellbutrin Xl -] 150 mg PO DAILY 10/05/19 Divalproex *ER* [Depakote *ER* -] 1 tablet PO BID 10/05/19 Doxepin HCl [Sinequan -] 10 mg PO HS 10/05/19 Famotidine 20 mg PO DAILY 10/05/19 Folic Acid 1 mg PO DAILY 10/05/19 Multivitamins [Multivit ([facility] 1 tablet PO DAILY 10/05/19 Formulary)] Omeprazole 20 mg PO DAILY 10/05/19 Prazosin HCl 1 mg PO HS 10/05/19 Thiamine HCl [Vitamin B-1] 1 tablet PO DAILY 10/05/19 Assessment and plan: Pt is a 73 y.o. M w/ HTN, HLD, schizophrenia, PSA, PTSD, depression, anxiety and lower back pain presents with chest pain and withdrawal symptoms. #EtOH Abuse CIWA: 13 c/w Librium protocol refer to [facility] on discharge for Detox and Rehab, as Pt. state that this is what he wants. Fall precautions Thiamin, Folate, IVF, Banana Bag HIV - #R/o ACS associated w/ Syncope CXR showed cardiomegaly, unfolded aorta and wide mediastinum. f/u Echo Trop -, f/u rpt. EKG unremarkable x 2 f/u Utox EtOH level less than 3 #L. Ankle Pain f/u X-ray #Paresthesias w/ lower back pain Head CT scan which did not show any acute abnormality. No fracture or subluxation noted on C-spine CT, but showed multilevel degenerative disc disease, narrowing of foramen at C5-6 impinging on left C6 nerve root. f/u consults to Neurosurgery and Neurology. #HTN #HLD #Schizophrenia #Depression #Anxiety Pt. denies taking any of these medications and states he does not have the ability to pay for them, will endorse to day team the utility of continuing medications that the Pt. will not pickle maker as some require a prolonged use before efficacy. DVT Ppx: SCDs
--- NOTE | 2019-10-30 13:31 | EKG ---
Test Reason : Blood Pressure : / mmHG Vent. Rate : 078 BPM Atrial Rate : 078 BPM P-R Int : 132 ms QRS Dur : 088 ms QT Int : 378 ms P-R-T Axes : 031 014 024 degrees QTc Int : 430 ms NORMAL SINUS RHYTHM NORMAL ECG WHEN COMPARED WITH ECG OF 29-OCT-2019 07:59, NO SIGNIFICANT CHANGE WAS FOUND Confirmed by JESSICA PLAZA MD ([id number]) on 10/30/2019 1:30:43 PM Referred By: Confirmed By:JESSICA PLAZA MD
--- NOTE | 2019-10-30 20:12 | DS ---
Physical Exam: Patient left the building before has seen by me today. as per nurse patient was steady, with it. OBJECTIVE: Vital Signs Temperature 98.2 F 10/30/19 09:14 Pulse Rate 90 10/30/19 09:14 Respiratory Rate 22 H 10/30/19 09:14 Blood Pressure 127/85 10/30/19 09:14 O2 Sat by Pulse Oximetry (%) 99 10/30/19 09:00 CBCD WBC 8.7 K/mm3 (4.0-10.0) 10/29/19 18:30 RBC 5.32 M/mm3 (4.00-5.60) 10/29/19 18:30 Hgb 14.7 GM/dL (11.7-16.9) 10/29/19 18:30 Hct 44.7 % (35.4-49) 10/29/19 18:30 MCV 84.0 fl (80-96) 10/29/19 18:30 MCHC 32.9 g/dl (32.0-35.9) 10/29/19 18:30 RDW 15.9 % (11.9-15.9) 10/29/19 18:30 Plt Count 335 K/MM3 (134-434) 10/29/19 18:30 MPV 8.5 fl (7.5-11.1) 10/29/19 18:30 CARDIAC ENZYMES Creatine Kinase 336 U/L (26-308) H 10/29/19 18:30 Troponin I < 0.02 ng/ml (0.00-0.05) 10/29/19 18:30 Current Medications Generic Name Dose Route Start Last Admin Trade Name Freq PRN Reason Stop Dose Admin Chlordiazepoxide HCl 10 mg 11/01/19 00:00 Librium - PO 11/01/19 23:59 Q12H PRN Signs/symptoms of Withdrawal Chlordiazepoxide HCl 10 mg 10/29/19 21:20 Librium - PO 10/31/19 23:59 Q8H PRN Signs/symptoms of Withdrawal Chlordiazepoxide HCl 25 mg 10/29/19 21:21 10/30/19 05:40 Librium - PO 10/30/19 21:22 25 mg Q8H ED Administration Chlordiazepoxide HCl 15 mg 10/31/19 05:00 Librium - PO 10/31/19 21:01 Q8H [facility] Chlordiazepoxide HCl 10 mg 11/01/19 05:00 Librium - PO 11/01/19 21:01 Q8H [facility] Chlordiazepoxide HCl 10 mg 11/02/19 05:00 Librium - PO 11/02/19 05:01 ONCE ONE Dexamethasone Sodium Phosphate 4 mg 10/30/19 10:14 Decadron Injection - IVPUSH 10/30/19 10:15 ONCE ONE Folic Acid 1 mg 10/30/19 10:00 Folic Acid - PO DAILY [facility] Heparin Sodium (Porcine) 5,000 unit 10/29/19 22:00 10/30/19 06:55 Heparin - SQ Not Given TID [facility] Sodium Chloride 1,000 mls @ 83 mls/hr 10/29/19 21:15 10/30/19 05:40 Normal Saline - IV 83 mls/hr ASDIR [facility] Administration Nicotine 14 mg 10/30/19 10:00 Nicoderm Patch - TD DAILY [facility] Thiamine HCl 100 mg 10/30/19 10:00 Vitamin B1 - PO DAILY [facility] Home Medications Medication Instructions Recorded Bupropion HCl [Wellbutrin -] 150 mg PO BID 07/05/19 Lansoprazole [Prevacid] 15 mg PO DAILY 07/05/19 Trazodone HCl 150 mg PO HS 07/05/19 clonazePAM [Klonopin -] 0.5 mg PO TID 07/05/19 Chlorpromazine [Thorazine -] 100 mg PO DAILY 07/12/19 Gabapentin [Neurontin -] 300 cap PO DAILY 07/12/19 Acetaminophen [Tylenol] 325 mg PO TID PRN 10/05/19 Aripiprazole 10 mg PO 10/05/19 Bupropion HCl [Wellbutrin Xl -] 150 mg PO DAILY 10/05/19 Divalproex *ER* [Depakote *ER* -] 1 tablet PO BID 10/05/19 Doxepin HCl [Sinequan -] 10 mg PO HS 10/05/19 Famotidine 20 mg PO DAILY 10/05/19 Folic Acid 1 mg PO DAILY 10/05/19 Multivitamins [Multivit ([facility] 1 tablet PO DAILY 10/05/19 Formulary)] Omeprazole 20 mg PO DAILY 10/05/19 Prazosin HCl 1 mg PO HS 10/05/19 Thiamine HCl [Vitamin B-1] 1 tablet PO DAILY 10/05/[address] scan which did not show any acute abnormality. No fracture or subluxation noted on C-spine CT, but showed multilevel degenerative disc disease, narrowing of foramen at C5-6 impinging on left C6 nerve root. HOSPITAL COURSE: Date of Admission:10/29/19 Date of Discharge: 10/30/19 Pt is a 73 y.o. M w/ HTN, HLD, schizophrenia, PSA, PTSD, depression, anxiety and lower back pain presents with chest pain and withdrawal symptoms. #EtOH Abuse on Librium protocol #HTN #HLD #Schizophrenia #Depression #Anxiety DVT Ppx: SCDs Minutes to complete discharge: 30 Discharge Summary Problems reviewed: Yes Reason For Visit: ALCOHOL DEPENDENCE WITH WITHDRAWAL Condition: Stable - Instructions Disposition: AGAINST MEDICAL ADVICE - Home Medications Comprehensive Discharge Medication List: Ambulatory Orders Bupropion HCl [Wellbutrin -] 150 mg PO BID 07/05/19 Lansoprazole [Prevacid] 15 mg PO DAILY 07/05/19 Trazodone HCl 150 mg PO HS 07/05/19 clonazePAM [Klonopin -] 0.5 mg PO TID 07/05/19 Chlorpromazine [Thorazine -] 100 mg PO DAILY 07/12/19 Gabapentin [Neurontin -] 300 cap PO DAILY 07/12/19 Acetaminophen [Tylenol] 325 mg PO TID PRN 10/05/19 Aripiprazole 10 mg PO 10/05/19 Bupropion HCl [Wellbutrin Xl -] 150 mg PO DAILY 10/05/19 Divalproex *ER* [Depakote *ER* -] 1 tablet PO BID 10/05/19 Doxepin HCl [Sinequan -] 10 mg PO HS 10/05/19 Famotidine 20 mg PO DAILY 10/05/19 Folic Acid 1 mg PO DAILY 10/05/19 Multivitamins [Multivit ([facility] Formulary)] 1 tablet PO DAILY 10/05/19 Omeprazole 20 mg PO DAILY 10/05/19 Prazosin HCl 1 mg PO HS 10/05/19 Thiamine HCl [Vitamin B-1] 1 tablet PO DAILY 10/05/19 This patient is new to me today: Yes Date on this admission: 10/30/19 Emergency Visit: Yes ED Registration Date: 10/29/19 Care time: The patient presented to the Emergency Department on the above date and was hospitalized for further evaluation of their emergent condition. Critical Care patient: No - Discharge Referral Referred to [facility] No
[2019-10-31] MEDS ORDERED: chlordiazePOXIDE 5 MG CAPSULE PO SCH (05:00)
[2019-11-01] MEDS ORDERED: chlordiazePOXIDE HCL 10 MG CAPSULE PO PRN
[2019-11-01] MEDS ORDERED: chlordiazePOXIDE HCL 10 MG CAPSULE PO SCH (05:00)
[2019-11-02] MEDS ORDERED: chlordiazePOXIDE HCL 10 MG CAPSULE PO ONE (05:00)
== END 2019-10-30 11:38 | disposition left against medical advice (07) | DRG 770 ==
LOC: JER 16:42 → JERBED 18:27 → J4W 10-30 02:54
PROVIDERS: ADMIT Internal Medicine; ATTEND Internal Medicine
DX: F10.230 Alcohol dependence with withdrawal, uncomplicated (principal); F20.9 Schizophrenia, unspecified; I10 Essential (primary) hypertension; E78.5 Hyperlipidemia, unspecified; F43.10 Post-traumatic stress disorder, unspecified; F32.9 Major depressive disorder, single episode, unspecified; F41.9 Anxiety disorder, unspecified; F12.10 Cannabis abuse, uncomplicated; F14.10 Cocaine abuse, uncomplicated; F17.210 Nicotine dependence, cigarettes, uncomplicated; R07.9 Chest pain, unspecified; R55 Syncope and collapse; E66.3 Overweight; Z68.31 Body mass index [BMI] 31.0-31.9, adult; M25.572 Pain in left ankle and joints of left foot; I51.7 Cardiomegaly
CPT/HCPCS: 36415; 80307; 82550; 82553; 83735; 84100; 84484; 85025; 87389; 93005; 93010; 97116-GP; 99285-25; J1644; J7030

== ENCOUNTER 2019-10-31 13:11 | Inpatient (IN) | payer OTHER ==
--- NOTE | 2019-10-31 13:26 | PDOC ---
History of Present Illness - General Stated Complaint: DRUG ABUSE Time Seen by Provider: 10/31/19 13:18 Past History - Past Medical History Allergies/Adverse Reactions: Allergies Allergy/AdvReac Type Severity Reaction Status Date / Time Egg Derived Allergy Swelling Verified 10/30/19 09:04 Fish Containing Products Allergy Verified 10/10/19 00:06 peanut Allergy Verified 10/10/19 00:06 pepper (genus Capsicum) Allergy Verified 10/10/19 00:06 Home Medications: Ambulatory Orders Bupropion HCl [Wellbutrin -] 150 mg PO BID 07/05/19 Lansoprazole [Prevacid] 15 mg PO DAILY 07/05/19 Trazodone HCl 150 mg PO HS 07/05/19 clonazePAM [Klonopin -] 0.5 mg PO TID 07/05/19 Chlorpromazine [Thorazine -] 100 mg PO DAILY 07/12/19 Gabapentin [Neurontin -] 300 cap PO DAILY 07/12/19 Acetaminophen [Tylenol] 325 mg PO TID PRN 10/05/19 Aripiprazole 10 mg PO 10/05/19 Bupropion HCl [Wellbutrin Xl -] 150 mg PO DAILY 10/05/19 Divalproex *ER* [Depakote *ER* -] 1 tablet PO BID 10/05/19 Doxepin HCl [Sinequan -] 10 mg PO HS 10/05/19 Famotidine 20 mg PO DAILY 10/05/19 Folic Acid 1 mg PO DAILY 10/05/19 Multivitamins [Multivit ([facility] Formulary)] 1 tablet PO DAILY 10/05/19 Omeprazole 20 mg PO DAILY 10/05/19 Prazosin HCl 1 mg PO HS 10/05/19 Thiamine HCl [Vitamin B-1] 1 tablet PO DAILY 10/05/19 Anemia: No Asthma: No Cancer: No Cardiac Disorders: No CVA: No COPD: No CHF: No Dementia: No Diabetes: No GI Disorders: No Disorders: No HTN: Yes Hypercholesterolemia: Yes Kidney Stones: No Liver Disease: No Seizures: No Thyroid Disease: No - Surgical History Abdominal Surgery: No Appendectomy: No Cardiac Surgery: No Cholecystectomy: No Lung Surgery: No Neurologic Surgery: No - Reproductive History Testicular Surgery: No - Psycho Social/Smoking Cessation Hx Smoking History: Current every day smoker Have you smoked in the past 12 months: No Number of Cigarettes Smoked Daily: 20 Cigars Per Day: 0 'Breaking Loose' booklet given: 10/05/19 Hx Alcohol Use: Yes Drug/Substance Use Hx: Yes (K2) Substance Use Type: Alcohol, Cocaine, Marijuana, Prescribed Hx Substance Use Treatment: No ED Treatment Course - LABORATORY CBC & Chemistry Diagram: 10/31/19 13:45 10/31/19 13:45 Medical Decision Making - Medical Decision Making 10/31/19 14:39 HPI: 49yo M hx HTN, HLD, schizophrenia, PTSD, depression, anxiety, polysubstance abuse (alcohol, marijuana/K2, and crack cocaine smoking), chronic lower back pain, and recent admission here on 10/29 for CP with elopement yesterday BIBA c/ o 1hr substernal nonradiating exertional worsening sharp chest pain and syncope with L ankle injury s/p use of K2, vodka, and crack cocaine at approx 1100 this AM. Does not remember why passed out/fell today, but remembers hurt L ankle and was found on floor by another darinel who called EMS. Endorses a slight diffuse headache and chronic lower back pain. Pt states he left yesterday because he thought they weren't doing any more tests on him. Pt is willing to stay this time. Endorses hx withdrawal seizures. ROS: Constitutional: Positive for fatigue. Negative for chills, fever, diaphoresis. HENT: Negative for sore throat, rhinorrhea, congestion. Eyes: Negative for visual disturbance. Respiratory: Negative for shortness of breath, cough, and wheezing. Cardiovascular: Positive for chest pain. Negative for palpitations, and leg swelling. Gastrointestinal: Negative for abdominal pain, blood in stool, constipation, diarrhea, nausea, and vomiting. Genitourinary: Negative for dysuria, flank pain, and hematuria. Musculoskeletal: Positive for L ankle pain, chronic LBP. Negative for myalgias, and neck pain. Skin: Negative for rash. Neurological: Positive for syncope, headache. Negative for light-headedness, dizziness, vertigo, weakness, numbness. Psychiatric/Behavioral: Positive for substance abuse. Negative for behavioral problems and confusion. PE: Gen: Sleepy but arousable, NAD, comfortable-appearing. HEENT: PERRL, EOMI, MMM, NCAT. No conjunctival pallor. Sclera are non-icteric. CV: Regular rate and rhythm. No murmurs, rubs, or gallops. PULM: No resp distress. CTAB, no wheezes, rales, or rhonchi. ABD: soft, NT/ND, no rebound tenderness or guarding, no CVA tenderness. BACK: No TTP of c/t/l-spine. No step-offs or deformities. MSK: No bony deformities. 2+ pulses in all extremities. NEURO: AAOx3. PERRL. CN 2-12 intact. 5/5 strength in all extremities. Sensation to light touch intact in all extremities. No pronator drift. No dysmetria. No dysdiadochokinesia. No abnormal nystagmus. Very slight trembling to b/l hands. EXTREMITIES: No cyanosis. No clubbing. No edema. No calf tenderness. R ankle: full ROM, 5/5 strength, sensation intact throughout RLE, no swelling or erythema or deformity, <2 sec cap refill, pulses intact, compartments soft, point TTP medial malleolus PSYCH: Normal mood and thought pattern. SKIN: Warm and dry. Normal capillary refill. No rashes. No jaundice. MDM: 49yo M hx HTN, HLD, schizophrenia, PTSD, depression, anxiety, polysubstance abuse (alcohol, marijuana/K2, and crack cocaine smoking), chronic lower back pain, and recent admission here on 10/29 for CP with elopement yesterday BIBA for 1hr substernal nonradiating exertional worsening sharp chest pain and syncope with L ankle injury s/p use of K2, vodka, and crack cocaine at approx 1100 this AM. Hemodynamically stable, afebrile, neurologically intact, +TTP medial malleolus L ankle. Ddx: intoxication, withdrawal, ACS/WV (HEART score 4/moderate due to story, RFs , and age), arrhythmia, pancreatitis, GERD, infection, metabolic derangement, anemia, ICH L ankle ddx: fracture, dislocation, sprain/strain, bone contusion -CTH/c-spine -XR L ankle -CXR -EKG -Syncope and ACS/WV labs -Banana bag -Manage withdrawal: 2 Ativan -Dispo: admit likely tele obs pending w/u 10/31/19 15:12 CXR reviewed: no acute pathology EKG reviewed: NSR, 93bpm, normal axis, normal intervals, no e/o acute ischemia Labs reviewed: notable for lipase 1061 concerning for pancreatitis and CK 892 On reassessment, pt now endorses abdominal pain and has epigastric TTP. -LR -CTAP Glucose 59 -D5W 10/31/19 18:[address] reads and urine and XR L ankle. Admit tele inpatient 10/31/19 18:17 CTH reviewed: acute L maxillary sinusitis. Otherwise no acute pathology 10/31/19 18:51 CT c-spine reviewed: no acute pathology 10/31/19 19:04 Pt signed out to Dr Herman and night team. Discharge - Discharge Information Problems reviewed: Yes Clinical Impression/Diagnosis: Alcohol withdrawal, Polysubstance abuse, Chest pain, Syncope and collapse, Elevated lipase Condition: Stable - Admission Yes - Follow up/Referral - Patient Discharge Instructions - Post Discharge Activity
[2019-10-31 13:48] VITALS: BP 108/66; TEMP 98.5; BMI 28.2
[2019-10-31] MEDS ORDERED: ACETAMINOPHEN 1000 MG/100 ML VIAL (NON FORMULARY) IVPB ONE (13:48)
[2019-10-31] MEDS ORDERED: SODIUM CHLORIDE 0.9% 500 ML INFUS.BAG IV ONE (13:48)
[2019-10-31] MEDS ORDERED: ACETAMINOPHEN INJECTION 100 ML IVPB ONE (14:14)
[2019-10-31] MEDS ORDERED: FOLIC ACID INJECTION - 1 MG, THIAMINE HCL 100 MG, MULTIVIT INJECTION ADULT 10 ML in SOD... IVPB ONE (14:23)
[2019-10-31 14:26] LABS: BASO % 0.4 % (0-2.0); EOS % 1.1 % (0-4.5); HEMATOCRIT 41.2 % (35.4-49); HEMOGLOBIN 13.9 GM/dL (11.7-16.9); LYMPH % 21.5 % (8-40); MCH 28.1 pg (25.7-33.7); MCHC 33.6 g/dl (32.0-35.9); MEAN CELL VOLUME 83.4 fl (80-96); MEAN PLT VOLUME 8.1 fl (7.5-11.1); MONO % 9.9 % (3.8-10.2); NEUT % 67.1 % (42.8-82.8); PLATELET COUNT 275 K/MM3 (134-434); RBC 4.94 M/mm3 (4.00-5.60); RDW 15.9 % (11.9-15.9); WHITE BLOOD COUNT 9.9 K/mm3 (4.0-10.0)
--- NOTE | 2019-10-31 14:31 | PDOC ---
Attending Attestation - Resident Resident Name: Tiffanie Epstein - ED Attending Attestation I have performed the following: I have examined & evaluated the patient, The case was reviewed & discussed with the resident, I agree w/resident's findings & plan - HPI HPI: 10/31/19 14:32 49 years old past medical history significant for polysubstance abuse alcohol cocaine marijuana K2 presents status post using K2 this morning developed chest pain 2 hours subsequently. also admits to drinking vodka this morning. +syncope, does not remember passing out after his K2 and etoh use he was seen in the department several days ago, ama'd on 10/30/19 prior to full evaluation of his syncope/chest pain. - Physicial Exam PE: 10/31/19 14:34 Agree with the resident's HPI and PE as documented in the electronic medical record. disheveled, malodorous. alert [place]. EOMI, PERRL, nl conjunctiva, anicteric ; +tongue fasciculations. neck supple. lungs clear, +tachycardic abdomen soft + mild epigastric TTP. no rebound, guarding. Back nontender. BROWN x4, no focal neuro deficits. No peripheral edema. normal color for ethnicity, WWP. +very tremulous. 10/31/19 15:18 - Medical Decision Making 10/31/19 14:31 Vital Signs Temp Pulse Resp BP Pulse Ox 98.5 F 18 L 18 108/66 99 10/31/19 13:11 10/31/19 13:11 10/31/19 13:11 10/31/19 13:11 10/31/19 13:11 DDx chest pain: ACS, coronary vasospasm, NSTEMI, arrhythmia, unstable angina, PE , dissection, PUD, esophageal spasm, GERD, gastritis, costochondritis, pneumonia , pleurisy, pericarditis/myocarditis. dehydration, electrolyte/metabolic derangements. etoh w/d, intoxication, sympathomimetic effects. pancreatitis, renal colic, biliary colic, hepatitis, pus, gastritis, esophageal spasm Considered but clinically doubt based on HPI and PE: Low suspicion for pulmonary embolism or dissection. Vital signs reviewed, afebrile, nontoxic, normotensive. not intoxicated here. Patient appearing in mild alcohol withdrawal, no evidence of delirium. His last drink was this morning. Now also endorses chest pain/nausea. We will give banana bag, Ativan 2 mg for alcohol withdrawal, We will also perform cardiac work-up including troponins, repeat labs and admission. reassuringly, trop neg and labs unremarkable tylenol for chest pain. also will give ativan, which could help with sx/as pt uses cocaine/K2/cannibis and other sympathomimetic agents Patient is amenable to admission and work-up for his chest pain. Head CT scan which did not show any acute abnormality. CT with left-sided maxillary sinusitis otherwise unremarkable CT head negative for intracranial bleed or injuries. CT C-spine also negative for acute fractures or subluxation. 10/31/19 14:34 lipase came back elevated today 1000, acute pancreatitis, likely alcohol induced bowel rest, LR hydration, glucose borderline <60, will give PO dextrose - blood sugar on rechec still low in the 50s, will give D50. and order D5W with LR hydration. CT a/p pending on IOC, on my read no intra abdominal pathology noted. admit to hospitalist, inpatient GI cs, medical management hydration, pain control. admitting to overnight team, Dr Sandoval 10/31/19 18:39 11/02/19 11:15 Heart Score/ECG Review #1 ECG reviewed & interpreted by me at: 14:25 General ECG Interpretation: Sinus Rhythm, Normal Rate, Normal Intervals Compared to previous ECG there are: No significant change 10/31/19 14:35 EKG normal sinus rhythm 93 bpm, no interval abnormalities, narrow QRS, ST and T wave segments and morphology normal. Nonspecific T wave abnormalities
[2019-10-31 14:38] LABS: INR 1.15 (0.83-1.09); PROTHROMBIN TIME (PATIENT) 13.6 SEC (9.7-13.0)
[2019-10-31 14:41] LABS: ACTIVATED PTT 32.2 SECONDS (25.2-36.5)
[2019-10-31] MEDS ORDERED: LORazepam 2 MG/ML SDV VIAL ONE (14:43)
[2019-10-31 14:51] LABS: ALBUMIN 3.9 g/dl (3.4-5.0); ALK PHOS 94 U/L (45-117); ANION GAP 8 MMOL/L (8-16); BILIRUBIN,TOTAL 0.6 mg/dL (0.2-1); BLOOD UREA NITROGEN 17.4 mg/dL (7-18); CALCIUM 8.9 mg/dL (8.5-10.1); CHLORIDE 108 mmol/L (98-107); CO2 26 mmol/L (21-32); CREATININE 1.1 mg/dL (0.55-1.3); GLUCOSE,RANDOM 59 mg/dL (74-106); LIPASE 1061 U/L (73-393); MAGNESIUM 2.1 mg/dL (1.8-2.4); POTASSIUM 4.4 mmol/L (3.5-5.1); SGOT/AST 36 U/L (15-37); SGPT/ALT 27 U/L (13-61); SODIUM 142 mmol/L (136-145); TOT PROT 7.1 g/dl (6.4-8.2)
[2019-10-31] MEDS ORDERED: LACTATED RINGERS SOLUTION 1,000 ML/1,000 ML INFUS.BAG IV SCH (15:15)
[2019-10-31] MEDS ORDERED: DEXTROSE 5%-LACTATED RINGERS 1,000 ML IV SCH (15:30)
[2019-10-31] MEDS ORDERED: DEXTROSE 50%-WATER 25 GM/50 ML DISP.SYRIN ONE ×2 (18:39→18:46)
[2019-10-31] MEDS ORDERED: DEXTROSE 50%-WATER - 25 GM/50 ML VIAL IVPUSH ONE (18:39)
--- NOTE | 2019-10-31 19:23 | PDOC ---
*Physical Exam - Vital Signs Last Vital Signs Temp Pulse Resp BP Pulse Ox 98.5 F 18 L 18 108/66 99 10/31/19 13:11 10/31/19 13:11 10/31/19 13:11 10/31/19 13:11 10/31/19 13:11 - Physical Exam General Appearance: Yes: Nourished, Appropriately Dressed, Disheveled, Obese, Other (sleeping comfortably in bed, in no acute distress). No: Apparent Distress Neck: positive: Supple. negative: Lymphadenopathy (R), Lymphadenopathy (L) Respiratory/Chest: positive: Lungs Clear, Normal Breath Sounds. negative: Crackles, Rales, Rhonchi, Stridor, Wheezing Cardiovascular: positive: Regular Rhythm, Regular Rate (82). negative: Murmur Gastrointestinal/Abdominal: positive: Normal Bowel Sounds, Soft, Protuberent. negative: Tender, Organomegaly, Pulsatile Mass, Guarding, Rebound Musculoskeletal: positive: Normal Inspection Extremity: positive: Normal Inspection. negative: Coldness, Cyanosis Integumentary: positive: Normal Color, Dry, Warm. negative: Diaphoresis Neurologic: positive: Normal Response, Respond to painful stimul ED Treatment Course - LABORATORY CBC & Chemistry Diagram: 10/31/19 13:45 10/31/19 13:45 - ADDITIONAL ORDERS Additional order review: Laboratory Results 10/31/19 10/31/19 10/31/19 18:36 18:00 13:45 PT with INR INR PTT (Actin FS) Sodium 142 Potassium 4.4 Chloride 108 H Carbon Dioxide 26 Anion Gap 8 BUN 17.4 Creatinine 1.1 Est GFR (CKD-EPI)AfAm 89.61 Est GFR (CKD-EPI)NonAf 77.32 POC Glucometer 54 Random Glucose 59 L Calcium 8.9 Phosphorus 4.0 Magnesium 2.1 Total Bilirubin 0.6 AST 36 ALT 27 Alkaline Phosphatase 94 Creatine Kinase 684 H 892 H Creatine Kinase Index 0.7 CK-MB (CK-2) 7.0 H Troponin I < 0.02 < 0.02 Total Protein 7.1 Albumin 3.9 Lipase 1061 H Alcohol, Quantitative 10/31/19 10/31/19 13:45 13:45 PT with INR 13.60 H INR 1.15 H PTT (Actin FS) 32.2 Sodium Potassium Chloride Carbon Dioxide Anion Gap BUN Creatinine Est GFR (CKD-EPI)AfAm Est GFR (CKD-EPI)NonAf POC Glucometer Random Glucose Calcium Phosphorus Magnesium Total Bilirubin AST ALT Alkaline Phosphatase Creatine Kinase Creatine Kinase Index CK-MB (CK-2) Troponin I Total Protein Albumin Lipase Alcohol, Quantitative < 3 10/31/19 10/31/19 18:36 13:45 RBC 4.94 MCV 83.4 MCHC 33.6 RDW 15.9 MPV 8.1 Neutrophils % 67.1 D Lymphocytes % 21.5 D Monocytes % 9.9 Eosinophils % 1.1 Basophils % 0.4 POC Glucometer 54 - Medications Given in the ED: ED Medications Discontinued Medications Generic Name Dose Route Start Last Admin Trade Name Gage PRN Reason Stop Dose Admin Acetaminophen 1,000 mg 10/31/19 13:48 10/31/19 14:26 Ofirmev Injection - IVPB 10/31/19 13:49 1,000 mg ONCE ONE Administration Dextrose 25 gm 10/31/19 18:39 10/31/19 18:54 D50w (Vial) - IVPUSH 10/31/19 18:40 25 gm NOW ONE Administration Lorazepam 2 mg 10/31/19 14:23 10/31/19 14:47 Ativan Injection - IVPUSH 10/31/19 14:24 2 mg ONCE ONE Administration Sodium Chloride 1,000 ml 10/31/19 13:48 10/31/19 14:26 Normal Saline - IV 10/31/19 13:49 1,000 ml ONCE ONE Administration Medical Decision Making - Medical Decision Making 10/31/19 19:21 Signed out to me by Dr. Epstein. 49M with H depression/anxiety, alcohol/cocaine/heroin/K2 use disorder, recent multiple syncope and falls with chest pain after using K2 with AMA from hospital once sober, presenting with repeat episode today with chest pain, nausea, syncope in the setting of drug use. History of withdrawal seizures. Given 2mg Ativan for withdrawal and nausea. Banana bag, glucose 50. CT head/c-spine no acute pathology. CXR unremarkable. ECG NSR with HR 93, QRS 90, QTc 440, no ischemic changes or TWI. Needs admission for repeated syncope and chest pain in setting of likely need for alcohol withdrawal. 10/31/19 20:[address] Ruiz, would like IVF and pain control, good for tele admit to his service. Discharge - Discharge Information Problems reviewed: Yes Clinical Impression/Diagnosis: Polysubstance abuse, Syncope and collapse, Elevated lipase Alcohol withdrawal Qualifiers: Complication of substance-induced condition: uncomplicated Qualified Code(s): F10.230 - Alcohol dependence with withdrawal, uncomplicated Chest pain Qualifiers: Chest pain type: precordial pain Qualified Code(s): R07.2 - Precordial pain Condition: Stable - Follow up/Referral - Patient Discharge Instructions - Post Discharge Activity
[2019-10-31 19:59] VITALS: PULSE 82
--- NOTE | 2019-10-31 21:39 | HP ---
49 M h/o HTN, HLD, schizophrenia, PSA, PTSD, depression, anxiety and lower back pain presents with chest pain and withdrawal symptoms. Pt. in ED 2 days ago left AMA. Has a history of K2 abuse, Etoh, ?other drugs, recurrent episodes of CP presenting to ED then AMAing. Pt. states since 2 days ago he smoked crack- cocaine, marijuana, and K2 and drank alcohol. Buys drugs from doing odd jobs, denies previous intubations or episodes of DT's. Denies SI/HI. Endorses chest pain is constant, non-radiating, otherwise cant describe further, was seen in ED sleeping (snoring). Resting comfortably. Recent Travel: denies PAST MEDICAL HISTORY: as above PAST SURGICAL HISTORY: denies Social History: Smoking: yes Alcohol: yes Drugs: yes K2, ?heroin/crack cocaine Allergies Egg Derived Allergy (Verified 10/30/19 09:04) Swelling Fish Containing Products Allergy (Verified 10/10/19 00:06) peanut Allergy (Verified 10/10/19 00:06) pepper (genus Capsicum) Allergy (Verified 10/10/19 00:06) HOME MEDICATIONS: Home Medications Medication Instructions Recorded Bupropion HCl [Wellbutrin -] 150 mg PO BID 07/05/19 Lansoprazole [Prevacid] 15 mg PO DAILY 07/05/19 Trazodone HCl 150 mg PO HS 07/05/19 clonazePAM [Klonopin -] 0.5 mg PO TID 07/05/19 Chlorpromazine [Thorazine -] 100 mg PO DAILY 07/12/19 Gabapentin [Neurontin -] 300 cap PO DAILY 07/12/19 Acetaminophen [Tylenol] 325 mg PO TID PRN 10/05/19 Aripiprazole 10 mg PO 10/05/19 Bupropion HCl [Wellbutrin Xl -] 150 mg PO DAILY 10/05/19 Divalproex *ER* [Depakote *ER* -] 1 tablet PO BID 10/05/19 Doxepin HCl [Sinequan -] 10 mg PO HS 10/05/19 Famotidine 20 mg PO DAILY 10/05/19 Folic Acid 1 mg PO DAILY 10/05/19 Multivitamins [Multivit ([facility] 1 tablet PO DAILY 10/05/19 Formulary)] Omeprazole 20 mg PO DAILY 10/05/19 Prazosin HCl 1 mg PO HS 10/05/19 Thiamine HCl [Vitamin B-1] 1 tablet PO DAILY 10/05/19 PHYSICAL EXAMINATION Vital Signs - 24 hr 10/31/19 10/31/19 13:11 19:58 Temperature 98.5 F Pulse Rate 18 L Pulse Rate [ 82 Radial] Respiratory 18 Rate Blood Pressure 108/66 O2 Sat by Pulse 99 Oximetry (%) GENERAL: AAox3, resting comfortable, NAD, sleeping intermittently HEAD: Normal with no signs of trauma. EYES: Pupils equal, round and reactive to light, extraocular movements intact, sclera anicteric, conjunctiva clear. No lid lag. EARS, NOSE, THROAT: Ears normal, nares patent, oropharynx clear without exudates. Moist mucous membranes. NECK: Normal range of motion, supple without lymphadenopathy, JVD, or masses. LUNGS: Breath sounds equal, clear to auscultation bilaterally. No wheezes, and no crackles. No accessory muscle use. HEART: Regular rate and rhythm, normal S1 and S2 without murmur, rub or gallop. ABDOMEN: Soft, nontender, not distended, normoactive bowel sounds, no guarding, no rebound, no masses. No hepatomegaly or splenomegaly. MUSCULOSKELETAL: Normal range of motion at all joints. No bony deformities or tenderness. No CVA tenderness. UPPER EXTREMITIES: 2+ pulses, warm, well-perfused. No cyanosis. No clubbing. No peripheral edema. LOWER EXTREMITIES: 2+ pulses, warm, well-perfused. No calf tenderness. No peripheral edema. NEUROLOGICAL: Cranial nerves II-XII intact. Normal speech. Normal gait. PSYCHIATRIC: Cooperative. Good eye contact. Appropriate mood and affect. SKIN: Warm, dry, normal turgor, no rashes or lesions noted, normal capillary refill. Laboratory Results - last 24 hr 10/31/19 10/31/19 10/31/19 13:45 13:45 13:45 WBC 9.9 RBC 4.94 Hgb 13.9 Hct 41.2 MCV 83.4 MCH 28.1 MCHC 33.6 RDW 15.9 Plt Count 275 MPV 8.1 Absolute Neuts (auto) 6.7 Neutrophils % 67.1 D Lymphocytes % 21.5 D Monocytes % 9.9 Eosinophils % 1.1 Basophils % 0.4 Nucleated RBC % 0 PT with INR 13.60 H INR 1.15 H PTT (Actin FS) 32.2 Sodium Potassium Chloride Carbon Dioxide Anion Gap BUN Creatinine Est GFR (CKD-EPI)AfAm Est GFR (CKD-EPI)NonAf POC Glucometer Random Glucose Calcium Phosphorus Magnesium Total Bilirubin AST ALT Alkaline Phosphatase Creatine Kinase Creatine Kinase Index CK-MB (CK-2) Troponin I Total Protein Albumin Lipase Alcohol, Quantitative < 3 10/31/19 10/31/19 10/31/19 13:45 18:00 18:36 WBC RBC Hgb Hct MCV MCH MCHC RDW Plt Count MPV Absolute Neuts (auto) Neutrophils % Lymphocytes % Monocytes % Eosinophils % Basophils % Nucleated RBC % PT with INR INR PTT (Actin FS) Sodium 142 Potassium 4.4 Chloride 108 H Carbon Dioxide 26 Anion Gap 8 BUN 17.4 Creatinine 1.1 Est GFR (CKD-EPI)AfAm 89.61 Est GFR (CKD-EPI)NonAf 77.32 POC Glucometer 54 Random Glucose 59 L Calcium 8.9 Phosphorus 4.0 Magnesium 2.1 Total Bilirubin 0.6 AST 36 ALT 27 Alkaline Phosphatase 94 Creatine Kinase 892 H 684 H Creatine Kinase Index 0.7 0.7 CK-MB (CK-2) 7.0 H 5.2 H Troponin I < 0.02 < 0.02 Total Protein 7.1 Albumin 3.9 Lipase 1061 H Alcohol, Quantitative 10/31/19 21:30 WBC RBC Hgb Hct MCV MCH MCHC RDW Plt Count MPV Absolute Neuts (auto) Neutrophils % Lymphocytes % Monocytes % Eosinophils % Basophils % Nucleated RBC % PT with INR INR PTT (Actin FS) Sodium Potassium Chloride Carbon Dioxide Anion Gap BUN Creatinine Est GFR (CKD-EPI)AfAm Est GFR (CKD-EPI)NonAf POC Glucometer 63 Random Glucose Calcium Phosphorus Magnesium Total Bilirubin AST ALT Alkaline Phosphatase Creatine Kinase Creatine Kinase Index CK-MB (CK-2) Troponin I Total Protein Albumin Lipase Alcohol, Quantitative ASSESSMENT/PLAN: 49 M h/o HTN, HLD, schizophrenia, PSA, PTSD, depression, anxiety and lower back pain presents with chest pain and withdrawal symptoms. ?syncopal episode, atypical CP likely 2/2 ongoing drug abuse f/u Echo, trops negx2 unlikely ACS obtain 3rd f/u Utox, tele monitoring Send TSH/A1c, lipids noted. Cardiology evaluation Etoh abuse Fall precautions Thiamine, Folate, IVF, Banana Bag librium protocol PRN, assess CIWA when patient wakes up HTN hold BP meds for now Schizophrenia,Depression,Anxiety denies SI/HI/Ah/VH restart anti-depressants, not in acute exacerbation Ativan PRN for severe anxiety or withdrawal symptoms Tele monitoring DVT ppx: SCD for now Patient has history of leaving AMA multiple occasions Visit type - Emergency Visit Emergency Visit: Yes ED Registration Date: 10/31/19 Care time: The patient presented to the Emergency Department on the above date and was hospitalized for further evaluation of their emergent condition. - New Patient This patient is new to me today: Yes Date on this admission: 10/31/19 - Critical Care Critical Care patient: No
[2019-10-31] MEDS ORDERED: LORazepam 2 MG/ML SDV VIAL IVPUSH PRN (22:00)
--- NOTE | 2019-11-01 01:17 | HOSP ---
Subjective - Review of Symptoms Events since last encounter: clinical rehab specialist resident notified that patent is verbally aggressive to nursing and medical staff, requesting to leave the hospital. Upon my encounter, patient is refusing all care (including vital signs, IV fluids) Counselled patient, educated regarding admitting diagnosis of pancreatitis, in addition to evaluation of chest pain, syncopal episode. Patient is of sound mind, AOx3, however repeatedly refuses to remain in hospital for further evaluation. Risks of leaving against medical advise discussed with patient including bunt not limited to worsening condition, sepsis, permanent disability, . Patient left hospital against medical advice. Case discussed with Dr. Sandoval Physical Examination Vital Signs: Vital Signs Temperature 98.5 F 10/31/19 13:11 Pulse Rate 82 10/31/19 19:58 Respiratory Rate 18 10/31/19 13:11 Blood Pressure 108/66 10/31/19 13:11 O2 Sat by Pulse Oximetry (%) 99 10/31/19 13:11 Labs: CBC, BMP 10/31/19 13:45 10/31/19 13:45
[2019-11-01] MEDS ORDERED: PRAZOSIN HCL 1 MG CAPSULE PO SCH (08:30)
--- NOTE | 2019-11-01 09:26 | EKG ---
Test Reason : Blood Pressure : / mmHG Vent. Rate : 093 BPM Atrial Rate : 093 BPM P-R Int : 134 ms QRS Dur : 090 ms QT Int : 354 ms P-R-T Axes : 046 011 032 degrees QTc Int : 440 ms NORMAL SINUS RHYTHM NORMAL ECG WHEN COMPARED WITH ECG OF 29-OCT-2019 17:35, NO SIGNIFICANT CHANGE WAS FOUND Confirmed by Jean Claude Rodgers ([id number]) on 11/01/2019 9:25:55 AM Referred By: Confirmed By:Jean Claude Rodgers
[2019-11-01] MEDS ORDERED: THIAMINE HCL 100 MG TABLET (FP) PO SCH (10:00)
[2019-11-01] MEDS ORDERED: FOLIC ACID 1 MG TABLET (FP) PO SCH (10:00)
[2019-11-01] MEDS ORDERED: FAMOTIDINE 20 MG TABLET PO SCH (10:00)
[2019-11-01] MEDS ORDERED: MULTIVITAMINS (DAILY MVI) TABLET (FP) PO SCH (10:00)
--- NOTE | 2019-11-01 10:03 | CON.CARD ---
Consult Consult Specialty:: CV - History of Present Illness Chief Complaint: cp History of Present Illness: 49 M here with CP Pt. left AMA from ED 2 days ago. per notes, he has h/o mult presentations for cp with leaving AMA. Has a history of K2 abuse, Etoh, ? other drugs, reports constant CP for 2 days [employer] since he smoked crack-cocaine, marijuana, and K2 and drank alcohol. PMH: HTN, HLD, schizophrenia, PSA, PTSD, depression, anxiety and lower back pain, substance abuse - Alcohol/Substance Use Hx Alcohol Use: Yes - Smoking History Smoking history: Current every day smoker Have you smoked in the past 12 months: No Aproximately how many cigarettes per day: 20 - Social History Usual Living Arrangement: Alone Home Medications - Allergies Allergies/Adverse Reactions: Allergies Allergy/AdvReac Type Severity Reaction Status Date / Time Egg Derived Allergy Swelling Verified 10/30/19 09:04 Fish Containing Products Allergy Verified 10/10/19 00:06 peanut Allergy Verified 10/10/19 00:06 pepper (genus Capsicum) Allergy Verified 10/10/19 00:06 - Home Medications Home Medications: Ambulatory Orders Bupropion HCl [Wellbutrin -] 150 mg PO BID 07/05/19 Lansoprazole [Prevacid] 15 mg PO DAILY 07/05/19 Trazodone HCl 150 mg PO HS 07/05/19 clonazePAM [Klonopin -] 0.5 mg PO TID 07/05/19 Chlorpromazine [Thorazine -] 100 mg PO DAILY 07/12/19 Gabapentin [Neurontin -] 300 cap PO DAILY 07/12/19 Acetaminophen [Tylenol] 325 mg PO TID PRN 10/05/19 Aripiprazole 10 mg PO 10/05/19 Bupropion HCl [Wellbutrin Xl -] 150 mg PO DAILY 10/05/19 Divalproex *ER* [Depakote *ER* -] 1 tablet PO BID 10/05/19 Doxepin HCl [Sinequan -] 10 mg PO HS 10/05/19 Famotidine 20 mg PO DAILY 10/05/19 Folic Acid 1 mg PO DAILY 10/05/19 Multivitamins [Multivit ([facility] Formulary)] 1 tablet PO DAILY 10/05/19 Omeprazole 20 mg PO DAILY 10/05/19 Prazosin HCl 1 mg PO HS 10/05/19 Thiamine HCl [Vitamin B-1] 1 tablet PO DAILY 10/05/19 Vital Signs: Vital Signs Temperature 98.5 F 10/31/19 13:11 Pulse Rate 82 10/31/19 19:58 Respiratory Rate 18 10/31/19 13:11 Blood Pressure 108/66 10/31/19 13:11 O2 Sat by Pulse Oximetry (%) 99 10/31/19 13:11 - Other Data Labs, Other Data: CBC, BMP 10/31/19 13:45 10/31/19 13:45 INR, PTT INR 1.15 (0.83-1.09) H 10/31/19 13:45 Troponin, BNP 10/31/19 10/31/19 11/01/19 13:45 18:00 01:00 Troponin I < 0.02 < 0.02 < 0.02 Troponin, BNP 10/31/19 10/31/19 11/01/19 13:45 18:00 01:00 Troponin I < 0.02 < 0.02 < 0.02 Assessment/Plan ECG x2: NSR, WNL CXR: clear lungs chest pain: -in setting of substance abuse -trop neg x 3, ECG normal low TSH: -per hospitalist
--- NOTE | 2019-11-01 12:06 | PN ---
Progress Note (short form) - Note Progress Note: went to ER to see pt. he had signed out AMA already
== END 2019-11-01 01:34 | disposition left against medical advice (07) | DRG 770 ==
LOC: JER 13:11 → JERBED 14:41
PROC: HZ2ZZZZ Detoxification Services for Substance Abuse Treatment (ICD-10-PCS; principal; 2019-10-31)
DX: F10.230 Alcohol dependence with withdrawal, uncomplicated (principal); R07.89 Other chest pain; I10 Essential (primary) hypertension; F41.8 Other specified anxiety disorders; F20.9 Schizophrenia, unspecified; F11.10 Opioid abuse, uncomplicated; R55 Syncope and collapse; F19.20 Other psychoactive substance dependence, uncomplicated; K85.90 Acute pancreatitis without necrosis or infection, unspecified; Z68.28 Body mass index [BMI] 28.0-28.9, adult; E66.9 Obesity, unspecified; E78.5 Hyperlipidemia, unspecified
CPT/HCPCS: 36415; 70450-TC; 71045-TC-FY; 72125-TC; 74177-TC; 80053; 80307; 82550; 82553; 82962; 83036; 83690; 83735; 84100; 84443; 84484; 85025; 85610; 85730; 86593; 93005; 93010; 99285-25; J0131; J7030; Q9967

== ENCOUNTER 2019-11-04 16:53 | Observation (INO) | payer OTHER ==
[2019-11-04 17:03] VITALS: TEMP 98; BMI 31.1
--- NOTE | 2019-11-04 17:20 | PDOC ---
History of Present Illness - General Chief Complaint: Chest Pain Stated Complaint: CHEST PAIN History Source: Patient, Old Records Exam Limitations: Intoxication - History of Present Illness Initial Comments: 11/04/19 17:19 Rhett Auguste is a 49M with PMH cocaine/alcohol/K2 use presenting for a third time with chest pain in the setting of K2 use, recently AMA 2x from [facility] ED prior to cardiac evaluation and had pancreatitis at last visit. Reports that he used cocaine, alcohol, and K2 today, but denies any syncope or falls. Was in restroom this evening and had severe epigastric pain identical to his prior pain, called EMS to bring him to ED, says he is worried about his pancreas and wants to stay. Denies any nausea or vomiting, last BM 4 days ago but has not had anything to eat since then, says he is very hungry. Also says his hands are shaky, last drink of vodka this morning. Denies any SOB or palpitations today. Does belch a lot. Past History - Past Medical History Allergies/Adverse Reactions: Allergies Allergy/AdvReac Type Severity Reaction Status Date / Time Egg Derived Allergy Swelling Verified 11/04/19 17:01 Fish Containing Products Allergy Verified 11/04/19 17:01 peanut Allergy Verified 11/04/19 17:01 pepper (genus Capsicum) Allergy Verified 11/04/19 17:01 Home Medications: Ambulatory Orders Bupropion HCl [Wellbutrin -] 150 mg PO BID 07/05/19 Lansoprazole [Prevacid] 15 mg PO DAILY 07/05/19 Trazodone HCl 150 mg PO HS 07/05/19 clonazePAM [Klonopin -] 0.5 mg PO TID 07/05/19 Chlorpromazine [Thorazine -] 100 mg PO DAILY 07/12/19 Gabapentin [Neurontin -] 300 cap PO DAILY 07/12/19 Divalproex *ER* [Depakote *ER* -] 1 tablet PO BID 10/05/19 Doxepin HCl [Sinequan -] 10 mg PO HS 10/05/19 Famotidine 20 mg PO DAILY 10/05/19 Folic Acid 1 mg PO DAILY 10/05/19 Multivitamins [Multivit ([facility] Formulary)] 1 tablet PO DAILY 10/05/19 Omeprazole 20 mg PO DAILY 10/05/19 Prazosin HCl 1 mg PO HS 10/05/19 Thiamine HCl [Vitamin B-1] 1 tablet PO DAILY 10/05/19 Anemia: No Asthma: No Cancer: No Cardiac Disorders: No CVA: No COPD: No CHF: No Dementia: No Diabetes: No GI Disorders: No Disorders: No HTN: Yes Hypercholesterolemia: Yes Kidney Stones: No Liver Disease: No Seizures: No Thyroid Disease: No - Surgical History Abdominal Surgery: No Appendectomy: No Cardiac Surgery: No Cholecystectomy: No Lung Surgery: No Neurologic Surgery: No - Reproductive History Testicular Surgery: No - Immunization History Td Vaccination: Yes Immunization Up to Date: Yes - Psycho Social/Smoking Cessation Hx Smoking History: Never smoked Have you smoked in the past 12 months: No Number of Cigarettes Smoked Daily: 20 Cigars Per Day: 0 'Breaking Loose' booklet given: 10/05/19 Hx Alcohol Use: No Drug/Substance Use Hx: No Substance Use Type: Alcohol, Cocaine, Marijuana, Prescribed Hx Substance Use Treatment: No Review of Systems - Review of Systems Able to Perform ROS?: Yes Constitutional: No: Chills, Fever HEENTM: No: Eye Pain, Blurred Vision, Hearing Loss, Dental Problems, Difficulty Swallowing Respiratory: No: Cough, Shortness of Breath, SOB at Rest, Wheezing Cardiac (ROS): Yes: Chest Pain. No: Irregular Heart Rate, Lightheadedness, Palpitations, Syncope, Chest Tightness ABD/GI: Yes: Nausea, Poor Appetite, Poor Fluid Intake, Other (abdominal pain). No: Constipated, Diarrhea, Vomiting : No: Symptoms Reported Musculoskeletal: No: Symptoms Reported Integumentary: No: Symptoms Reported Neurological: Yes: Tremors. No: Headache, Numbness, Paresthesia Endocrine: No: Symptoms Reported Hematologic/Lymphatic: No: Symptoms Reported All Other Systems: Reviewed and Negative *Physical Exam - Vital Signs Last Vital Signs Temp Pulse Resp BP Pulse Ox 98 F 80 16 112/60 100 11/04/19 16:59 11/04/19 16:59 11/04/19 16:59 11/04/19 16:59 11/04/19 16:59 - Physical Exam General Appearance: Yes: Nourished, Appropriately Dressed, Disheveled, Mild Distress, Other (resting in bed, alert and speaking in normal voice, less intoxicated today than priors) HEENT: positive: EOMI, AMARIS, Normal Voice, Symmetrical, Pharynx Normal, Hearing Grossly Normal. negative: Scleral Icterus (R), Scleral Icterus (L), Pharyngeal Erythema, Tonsillar Exudate, Tonsillar Erythema Neck: positive: Trachea midline, Normal Thyroid, Supple. negative: Tender, Rigid, Decreased range of motion, Lymphadenopathy (R), Lymphadenopathy (L), Tender lateral, Tender midline Respiratory/Chest: positive: Lungs Clear, Normal Breath Sounds. negative: Chest Tender, Accessory Muscle Use, Rapid RR, Crackles, Rales, Rhonchi, Stridor, Wheezing Cardiovascular: positive: Regular Rhythm, Regular Rate. negative: Murmur Gastrointestinal/Abdominal: positive: Normal Bowel Sounds, Tender (epigastric), Flat, Soft. negative: Organomegaly, Pulsatile Mass, Protuberent, Distended, Guarding, Rebound Musculoskeletal: positive: Normal Inspection. negative: CVA Tenderness, Vertebral Tenderness Extremity: positive: Normal Capillary Refill, Normal Inspection, Normal Range of Motion, Pelvis Stable. negative: Tender Integumentary: positive: Normal Color, Dry, Warm. negative: Diaphoresis Neurologic: positive: Fully Oriented, Alert, Normal Mood/Affect, Normal Response, Other (bilateral hand tremors, no slurred speech, A/Ox3.). negative: Numbness, Sensory Deficit, Disoriented ED Treatment Course - LABORATORY CBC & Chemistry Diagram: 11/04/19 18:21 11/04/19 20:20 Medical Decision Making - Medical Decision Making 11/04/19 19:11 Patient has known history of K2/cocaine/EtOH use disorder with multiple syncope and chest pain in the setting of substance use, today denies syncope/fall but has epigastric pain similar that that felt last time evaluated in ED and found to have pancreatitis, lipase ~1000. Will evaluate for ACS, pancreatitis at this time, low threshold to CT head/c-spine but not intoxicated at this time. VS stable in ED, patient in no acute distress. - CBC/CMP/Mg/Phos for eval leukocytosis and lyte abnormality - CP/ECG/CXR for eval chest pain - lipase for eval pancreatitis - pepcid, Maalox, acetaminophen for symptomatic treatment Given multiple syncope/fall/chest pain complaints and polysubstance use incl uding cocaine will ultimately need cardiac eval and pancreatitis treatment. 11/04/19 20:50 Labs notable for: - CBC WNL - CMP WNL - lipase 222, decreased from 1000 prior Patient complaining of epigastric pain but more likely to be alcoholic gastritis vs. pancreatitis. 11/04/19 21:07 Discussed case with admitting team who is aware of patient from prior attempts to admit. Admitted to tele/obs under Dr. Madrigal. Discharge - Discharge Information Problems reviewed: Yes Clinical Impression/Diagnosis: Epigastric pain Alcohol withdrawal Qualifiers: Complication of substance-induced condition: uncomplicated Qualified Code(s): F 10.230 - Alcohol dependence with withdrawal, uncomplicated Chest pain Qualifiers: Chest pain type: unspecified Qualified Code(s): R07.9 - Chest pain, unspecified - Admission Yes - Follow up/Referral - Patient Discharge Instructions - Post Discharge Activity
[2019-11-04] MEDS ORDERED: chlordiazePOXIDE HCL 25 MG CAPSULE PO ONE (18:33)
[2019-11-04 18:35] LABS: BASO % 0.4 % (0-2.0); EOS % 2.8 % (0-4.5); HEMATOCRIT 40.6 % (35.4-49); HEMOGLOBIN 13.3 GM/dL (11.7-16.9); LYMPH % 24.9 % (8-40); MCHC 32.9 g/dl (32.0-35.9); MEAN CELL VOLUME 85.2 fl (80-96); MEAN PLT VOLUME 8.2 fl (7.5-11.1); NEUT % 59.9 % (42.8-82.8); PLATELET COUNT 254 K/MM3 (134-434); RBC 4.76 M/mm3 (4.00-5.60); RDW 16.2 % (11.9-15.9); WHITE BLOOD COUNT 7.3 K/mm3 (4.0-10.0)
[2019-11-04] MEDS ORDERED: FAMOTIDINE 20 MG TABLET PO ONE (18:39)
[2019-11-04] MEDS ORDERED: MAG HYDROX/AL HYDROX/SIMETH 30 ML UNIT-DOSE CUP PO ONE (18:39)
[2019-11-04] MEDS ORDERED: ACETAMINOPHEN 325 MG TABLET (FP) PO ONE (18:39)
[2019-11-04] MEDS ORDERED: ACETAMINOPHEN 325 MG TABLET (FP) ONE (18:45)
[2019-11-04] MEDS ORDERED: MAG HYDROX/AL HYDROX/SIMETH 30 ML UNIT-DOSE CUP ONE (18:46)
[2019-11-04] MEDS ORDERED: chlordiazePOXIDE HCL 25 MG CAPSULE ONE ×2 (18:46→23:32)
[2019-11-04] MEDS ORDERED: FAMOTIDINE 20 MG TABLET ONE (18:46)
[2019-11-04 19:53] LABS: ALBUMIN 3.5 g/dl (3.4-5.0); ALK PHOS 111 U/L (45-117); ANION GAP 6 MMOL/L (8-16); BILIRUBIN,TOTAL 0.5 mg/dL (0.2-1); BLOOD UREA NITROGEN 15.4 mg/dL (7-18); CALCIUM 8.8 mg/dL (8.5-10.1); CHLORIDE 107 mmol/L (98-107); CO2 29 mmol/L (21-32); CREATININE 1.1 mg/dL (0.55-1.3); GLUCOSE,RANDOM 80 mg/dL (74-106); LIPASE 226 U/L (73-393); MAGNESIUM 2.4 mg/dL (1.8-2.4); PHOSPHOROUS 4.6 mg/dL (2.5-4.9); POTASSIUM 4.4 mmol/L (3.5-5.1); SGOT/AST 28 U/L (15-37); SGPT/ALT 26 U/L (13-61); SODIUM 142 mmol/L (136-145); TOT PROT 6.3 g/dl (6.4-8.2)
--- NOTE | 2019-11-04 21:00 | PDOC ---
Attending Attestation - Resident Resident Name: Rogers Herman - ED Attending Attestation I have performed the following: I have examined & evaluated the patient, The case was reviewed & discussed with the resident, I agree w/resident's findings & plan, Exceptions are as noted - HPI HPI: 11/04/19 21:12 See resident HPI - Physicial Exam PE: 11/04/19 21:12 Agree with documented exam - Medical Decision Making 11/04/19 21:12 49M with persistent epigastric pain recently left AMA while being treated in patient for pancreatitis, also recently left AMA after being admitted for a syncope evaluation. consider persistent pancreatitis, alcoholic gastritis, less likely acute abdomen denies interval episodes of syncope since last presentation, but work up was never completed f/u labs, ekg symptomatic tx likely admit
[2019-11-04] MEDS ORDERED: ACETAMINOPHEN 325 MG TABLET (FP) PO PRN (21:47)
[2019-11-04] MEDS ORDERED: ONDANSETRON 4 MG/2 ML VIAL IVPUSH PRN (21:55)
[2019-11-04] MEDS ORDERED: ACETAMINOPHEN 1000 MG/100 ML VIAL (NON FORMULARY) IVPB PRN (21:56)
[2019-11-04] MEDS ORDERED: PANTOPRAZOLE 20 MG TABLET PO SCH (22:00)
[2019-11-04] MEDS ORDERED: SODIUM CHLORIDE 1,000 ML IV SCH (22:00)
[2019-11-04] MEDS ORDERED: chlordiazePOXIDE HCL 25 MG CAPSULE PO PRN (22:20)
[2019-11-04] MEDS ORDERED: LORazepam 2 MG/ML SDV VIAL IVPUSH PRN (22:21)
[2019-11-04] MEDS ORDERED: FOLIC ACID INJECTION - 1 MG, THIAMINE HCL 100 MG, MULTIVIT INJECTION ADULT 10 ML in SOD... IVPB ONE (22:30)
--- NOTE | 2019-11-04 23:13 | HP ---
CHIEF COMPLAINT: Chest pain PCP: None HISTORY OF PRESENT ILLNESS: 49 M PMH HTN,HLD, PSA ( cocaine, K2, alcohol) who presents today with complaints of midepigastric pain and midsternal chest pain. His pain does not radiate to any other regions. It began shortly after he had a meal of chicken in a restaurant, became nauseous and had one episode of emesis. He was not sure what the contents of his emesis were. He rate his pain to be 6/10, he has experienced similar abdominal pain before and rates those episodes to be 7/10 and 8/10. Patient endorses drinking 4 pints of vodka earlier today, smoking K2, and snorting 4 lines of cocaine. Shortly after his substance use he endorses fainting and falling, but is not sure how long he was down; someone else woke him up after an indeterminate amount of time. He does not endorse any bumps, bruises, or bleeding. He endorses intermittent chest pain and shortness of breath with exertion. He denies fever, cough, weakness, dysuria, hematuria, diarrhea, and myalgia. ER course was notable for: (1) He was given Malox, Pepcid which alleviated his symptoms temporarily. (2) EKG was completed: NSR, Qtc 433 (3) Chest X-Ray shows no acute infiltrates Recent Travel: Denies PAST MEDICAL HISTORY: HTN,HLD,PSA ( cocaine, K2, alcohol) FAMILY MEDICAL HISTORY: Denies PAST SURGICAL HISTORY: Denies Social History: Smokin pack year history, current smoker Alcohol: 5 pints of vodka daily Drugs: Cocaine daily, K2 daily. Denies IV Drug Use. Lives on the streets, not in a [facility]. Allergies Egg Derived Allergy (Verified 11/04/19 17:01) Swelling Fish Containing Products Allergy (Verified 11/04/19 17:01) peanut Allergy (Verified 11/04/19 17:01) pepper (genus Capsicum) Allergy (Verified 11/04/19 17:01) HOME MEDICATIONS: Home Medications Medication Instructions Recorded Bupropion HCl [Wellbutrin -] 150 mg PO BID 07/05/19 Lansoprazole [Prevacid] 15 mg PO DAILY 07/05/19 Trazodone HCl 150 mg PO HS 07/05/19 clonazePAM [Klonopin -] 0.5 mg PO TID 07/05/19 Chlorpromazine [Thorazine -] 100 mg PO DAILY 07/12/19 Gabapentin [Neurontin -] 300 cap PO DAILY 07/12/19 Divalproex *ER* [Depakote *ER* -] 1 tablet PO BID 10/05/19 Doxepin HCl [Sinequan -] 10 mg PO HS 10/05/19 Famotidine 20 mg PO DAILY 10/05/19 Folic Acid 1 mg PO DAILY 10/05/19 Multivitamins [Multivit ([facility] 1 tablet PO DAILY 10/05/19 Formulary)] Omeprazole 20 mg PO DAILY 10/05/19 Prazosin HCl 1 mg PO HS 10/05/19 Thiamine HCl [Vitamin B-1] 1 tablet PO DAILY 10/05/19 REVIEW OF SYSTEMS CONSTITUTIONAL: Present: Chills Absent: fever, diaphoresis, generalized weakness, malaise, loss of appetite, weight change HEENT: Absent: rhinorrhea, nasal congestion, throat pain, throat swelling, difficulty swallowing, mouth swelling, ear pain, eye pain, visual changes CARDIOVASCULAR: Present: chest pain Absent: syncope, palpitations, irregular heart rate, lightheadedness, peripheral edema RESPIRATORY: Present: shortness of breath Absent: cough, dyspnea with exertion, orthopnea, wheezing, stridor, hemoptysis GASTROINTESTINAL: Present: abdominal pain, nausea, vomiting Absent: abdominal distension, nausea, diarrhea, constipation, melena, hematochezia GENITOURINARY: Absent: dysuria, frequency, urgency, hesitancy, hematuria, flank pain, genital pain MUSCULOSKELETAL: Absent: myalgia, arthralgia, joint swelling, back pain, neck pain SKIN: Absent: rash, itching, pallor HEMATOLOGIC/IMMUNOLOGIC: Absent: easy bleeding, easy bruising, lymphadenopathy, frequent infections ENDOCRINE: Absent: unexplained weight gain, unexplained weight loss, heat intolerance, cold intolerance NEUROLOGIC: Absent: headache, focal weakness or paresthesias, dizziness, unsteady gait, seizure, mental status changes, bladder or bowel incontinence PSYCHIATRIC: Absent: anxiety, depression, suicidal or homicidal ideation, hallucinations. PHYSICAL EXAMINATION Vital Signs - 24 hr 11/04/19 16:59 Temperature 98 F Pulse Rate 80 Respiratory 16 Rate Blood Pressure 112/60 O2 Sat by Pulse 100 Oximetry (%) GENERAL: Awake, alert, and fully oriented, in no acute distress. HEAD: Normal with no signs of trauma. EYES: Pupils equal, round and reactive to light, sclera anicteric. EARS, NOSE, THROAT: Moist mucous membranes. NECK: Normal range of motion, LUNGS: CTAB HEART: S1 S2 no murmurs rubs or gallops ABDOMEN:Tender to palpation in epigastric region, UPPER EXTREMITIES: 2+ pulses, warm, well-perfused. No cyanosis. No clubbing. No peripheral edema. LOWER EXTREMITIES: 2+ pulses, warm, well-perfused. No calf tenderness. No peripheral edema. NEUROLOGICAL: Cranial nerves II-XII intact. Normal speech. Tremors with arms extended. PSYCHIATRIC: Cooperative. Good eye contact. Appropriate mood and affect. SKIN: Warm, dry, normal turgor, no rashes or lesions noted, normal capillary refill. Laboratory Results - last 24 hr 11/04/19 11/04/19 18:21 20:20 WBC 7.3 RBC 4.76 Hgb 13.3 Hct 40.6 MCV 85.2 MCH 28.0 MCHC 32.9 RDW 16.2 H Plt Count 254 MPV 8.2 Absolute Neuts (auto) 4.4 Neutrophils % 59.9 Lymphocytes % 24.9 Monocytes % 12.0 H Eosinophils % 2.8 D Basophils % 0.4 Nucleated RBC % 0 Sodium 142 Potassium 4.4 Chloride 107 Carbon Dioxide 29 Anion Gap 6 L BUN 15.4 Creatinine 1.1 Est GFR (CKD-EPI)AfAm 89.61 Est GFR (CKD-EPI)NonAf 77.32 Random Glucose 80 Calcium 8.8 Phosphorus 4.6 Magnesium 2.4 Total Bilirubin 0.5 AST 28 ALT 26 Alkaline Phosphatase 111 Creatine Kinase 545 H Creatine Kinase Index 0.8 CK-MB (CK-2) 4.7 H Troponin I < 0.02 Total Protein 6.3 L Albumin 3.5 Lipase 226 ASSESSMENT/PLAN: 49 M PMH of HTN, HLD, Polysubstance Abuse (cocaine, K2, alcohol) presents today with chest pain and epigastric pain. 1) Intermittent Chest Pain - History of intermittent chest pain on exertion, shortness of breath on exertion, cocaine use. - Initial Troponin negative. Follow up troponin in AM - EKG NSR, QTc 433 - Cardiac monitoring - Echo ordered - Patient NPO if he requires stress test - Cardiology consult- Dr. Navarro consulted. Appreciate recs 2) Abdominal pain/ Epigastric Pain - Likely gastritis given alcohol history, localized pain - Responded to malox and protonix - CTA/P done one 10/31/19 negative for acute pathology - Protonix 40 mg IV Daily - Zofran PRN 3) Syncopal episode - History of reported falls - Not on A/C, no reported trauma, will not get Head CT - Fall precautions - Seizure precautions - HOB elevated - Echo ordered 4) Polysubstance use (Cocaine, K2, Alcohol) - 5 pints of vodka use daily. Cocaine and K2 use daily - CIWA of 8, however already withdrawing. - Severe Librium Protocol started due to alcohol use - Thimaine, Multivitamin, Folic Acid Daily - Banana bag - Utox and Alcohol level stat - Addiction Medicine consulted,patient is amenable to Detox 5) Hx of psych disorders - Prior notes and H&P note hx of mental illness - Patient denies any disorders and medication use - Psych consult - Currently homeless, social work consult F: D5+NS @ 100 ml/hr after Banana bag complete E: Monitor Mag/Phos N: NPO if stress test required DVT: SCD Dispo: Telemetry observation. Visit type - Emergency Visit Emergency Visit: Yes ED Registration Date: 11/04/19 Care time: The patient presented to the Emergency Department on the above date and was hospitalized for further evaluation of their emergent condition. - New Patient This patient is new to me today: Yes Date on this admission: 11/04/19 - Critical Care Critical Care patient: No ATTENDING PHYSICIAN STATEMENT I saw and evaluated the patient. I reviewed the resident's note and discussed the case with the resident. I agree with the resident's findings and plan as documented. SUBJECTIVE: OBJECTIVE: ASSESSMENT AND PLAN:
[2019-11-04] MEDS: chlordiazePOXIDE HCL 25 MG CAPSULE PO SCH (23:47)
--- NOTE | 2019-11-05 02:42 | PN ---
Teaching Attending Note Name of Resident: Sarina Roy ATTENDING PHYSICIAN STATEMENT I saw and evaluated the patient. I reviewed the resident's note and discussed the case with the resident. I agree with the resident's findings and plan as documented. Patient was noncompliant with interview and history is obtained from chart SUBJECTIVE: 49-year-old male with a history of hypertension, polysubstance abuse including cocaine, K2, alcohol presents complaining of midepigastric pain and midsternal pain that did not radiate after a chicken meal and a sandwich on 11/03 in the afternoon, subsequent vomiting episode. Patient also experienced a syncope episode on 11/03 in the morning after allegedly binge drinking. He also snorted several lines of cocaine and smoked K2. OBJECTIVE: Last Vital Signs Temp Pulse Resp BP Pulse Ox 98 F 80 16 112/60 100 11/04/19 16:59 11/04/19 16:59 11/04/19 16:59 11/04/19 16:59 11/04/19 16:59 On physical exam patient was disheveled, not in acute distress, head was atraumatic, normocephalic. Neck was supple, no JVD appreciated. Cardiovascular exam was S1, S2. Lungs were clear to auscultation bilaterally. Abdomen was soft, nontender with normal bowel sounds. Lower extremities did not show any pedal edema. Abnormal Lab Results 11/04/19 11/04/19 18:21 20:20 RDW 16.2 H Monocytes % 12.0 H Anion Gap 6 L Creatine Kinase 545 H CK-MB (CK-2) 4.7 H Total Protein 6.3 L Chest x-ray is reviewed it did not show any infiltrates. ASSESSMENT AND PLAN: 49-year-old male with polysubstance abuse with epigastric/chest pain likely secondary to gastritis from binge drinking. ACS should be ruled out in light of recent cocaine use. Mild rhabdomyolysis likely secondary to cocaine use. Telemetry observation Trend troponins Cardiac monitoring Transthoracic echo Keep n.p.o. in case patient requires stress test Cardiology consult Protonix IV Zofran IV as needed #Possible syncopesuspect likely secondary to polysubstance abuse. EKG was within normal limits. Fall precautions Cardiac monitoring Sickle therapy evaluation #Polysubstance abuse5 pints of vodka daily, cocaine, K2 CIWA protocol Librium protocol Thiamine, folate, multivitamin, urine toxicology and alcohol level Detox referral
[2019-11-05] MEDS ORDERED: chlordiazePOXIDE HCL 25 MG CAPSULE ONE (05:42)
[2019-11-05] MEDS: chlordiazePOXIDE HCL 25 MG CAPSULE PO SCH (05:45)
[2019-11-05 06:43] VITALS: PULSE 76
[2019-11-05 06:44] VITALS: BP 118/73
[2019-11-05 07:29] LABS: METHADONE, UR NEGATIVE ng/ml (CUTOFF=300); OPIATES, URI NEGATIVE ng/ml (CUTOFF=300); URINE AMPHETAMINES NEGATIVE ng/ml (CUTOFF=500); URINE BARBITURATES NEGATIVE ng/ml (CUTOFF=200)
[2019-11-05 07:50] LABS: COCAINE, UR POSITIVE ng/ml (CUTOFF=300); PHENCYCLIDINE,URINE POSITIVE ng/ml (CUTOFF=25); URINE BENZODIAZEPINES POSITIVE ng/ml (CUTOFF=200)
[2019-11-05] MEDS ORDERED: SODIUM CHLORIDE 1,000 ML IV SCH (08:30)
--- NOTE | 2019-11-05 09:33 | CON.CARD ---
Consult Consult Specialty:: Cardiology Referred by:: Dr. Horne Reason for Consultation:: Epigastric pain - History of Present Illness Chief Complaint: EPigastric and chest pain History of Present Illness: 49M with ETOH abuse, HTN, HLD, cocaine abuse, benzo abuse, + PCP presents with epigastric pain and tenderness Has chronic CARNES. Denies palps Denies syncope. No LH/last used cocaine yesterday. Lives in a senior care. Wants to leave today. Denies fever, chills,cough, diarrhea. 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: Alzheimer's, CVA, Dementia, Migraine, Multiple Sclerosis, Peripheral Neuropathy, Parkinson's, Seizure, Syncope, TIA, Vertigo, Other Cardio/Vascular: Yes: HTN Pulmonary: No: Asthma, Bronchitis, Cancer, COPD, O2 Dependent, Pneumonia, Previously Intubated, Pulmonary Embolus, Pulmonary Fibrosis, Sleep Apnea, Other Gastrointestinal: No: Ascites, Cancer, Constipation, Crohn's Disease, Diverticulitis, Diverticulosis, Esophageal Varices, Gastritis, GERD, GI Bleed, Hemorrhoids, Hiatal Hernia, Inflamatory Bowel Disease, Irritable Bowel Disease, Pancreatitis, Peptic Ulcer Disease, Ulcerative Colitis, Other Hepatobiliary: No: Cirrhosis, Cholelithiasis, Cholecystitis, Choledocholithiasis, Hepatitis A, Hepatitis B, Hepatitis C, Other Renal/: No: Renal Failure, Renal Inusuff, BPH, Cancer, Hematuria, Hemodialysis, Neurogenic Bladder, Renal Calculi, UTI, Other Heme/Onc: No: Anemia, B12 Deficiency, Bleeding Disorder, Cancer, Current Chemotherapy, Current Radiation Therapy, Hemochromatosis, Hypercoaguable State, Myeloproliferative Synd, Sickle Cell Disease, Sickle Cell Trait, Thrombocytopenia, Other Infectious Disease: No: AIDS, C-Diff, Herpes Zoster, HIV, MRSA, STD's, Tuberculosis, VREF, Other Musculoskeletal: No: Bursitis, Chronic low back pain, Hemiparesis, Hemiplegia, Osteoarthritis, Paraplegia, Other Rheumatology: No: Fibromyalgia, Gout, Lupus, Rheumatoid Arthritis, Sarcoidosis, Vasculitis, Other ENT: No: Allergic Rhinitis, Sinusitis, Other Endocrine: No: Cochran's Disease, Romeo's Disease, Diabetes Insipidus, Diabetes Mellitus, Hyperparathyroidism, Hyperthyroidism, Hypothyroidism, Osteopenia, SIADH, Other - Alcohol/Substance Use Hx Alcohol Use: No History of Substance Use: reports: Cocaine - Smoking History Smoking history: Current some day smoker Have you smoked in the past 12 months: No Aproximately how many cigarettes per day: 20 - Social History Usual Living Arrangement: Alone History of Recent Travel: No Home Medications - Allergies Allergies/Adverse Reactions: Allergies Allergy/AdvReac Type Severity Reaction Status Date / Time Egg Derived Allergy Swelling Verified 11/04/19 17:01 Fish Containing Products Allergy Verified 11/04/19 17:01 peanut Allergy Verified 11/04/19 17:01 pepper (genus Capsicum) Allergy Verified 11/04/19 17:01 - Home Medications Home Medications: Ambulatory Orders Bupropion HCl [Wellbutrin -] 150 mg PO BID 07/05/19 Lansoprazole [Prevacid] 15 mg PO DAILY 07/05/19 Trazodone HCl 150 mg PO HS 07/05/19 clonazePAM [Klonopin -] 0.5 mg PO TID 07/05/19 Chlorpromazine [Thorazine -] 100 mg PO DAILY 07/12/19 Gabapentin [Neurontin -] 300 cap PO DAILY 07/12/19 Divalproex *ER* [Depakote *ER* -] 1 tablet PO BID 10/05/19 Doxepin HCl [Sinequan -] 10 mg PO HS 10/05/19 Famotidine 20 mg PO DAILY 10/05/19 Folic Acid 1 mg PO DAILY 10/05/19 Multivitamins [Multivit ([facility] Formulary)] 1 tablet PO DAILY 10/05/19 Omeprazole 20 mg PO DAILY 10/05/19 Prazosin HCl 1 mg PO HS 10/05/19 Thiamine HCl [Vitamin B-1] 1 tablet PO DAILY 10/05/19 Family Medical History Family History: Unremarkable Review of Systems Findings/Remarks: See ER HPI - Review of Systems Constitutional: reports: No Symptoms Eyes: reports: No Symptoms HENT: reports: No Symptoms Neck: reports: No Symptoms Cardiovascular: reports: Chest Pain Respiratory: reports: No Symptoms Gastrointestinal: reports: Abdominal Pain Genitourinary: reports: No Symptoms Breasts: reports: No Symptoms Reported Musculoskeletal: reports: No Symptoms Integumentary: reports: No Symptoms Neurological: reports: No Symptoms Endocrine: reports: No Symptoms Hematology/Lymphatic: reports: No Symptoms Psychiatric: reports: No Symptoms - Risk Factors Known Risk Factors: Yes: Hypertension, Smoking, Other (Cocaine) Vital Signs: Vital Signs Temperature 98 F 11/04/19 16:59 Pulse Rate 76 11/05/19 06:43 Respiratory Rate 18 11/05/19 06:43 Blood Pressure 118/73 11/05/19 06:43 O2 Sat by Pulse Oximetry (%) 100 11/05/19 06:43 Constitutional: Yes: No Distress, Calm Eyes: Yes: Conjunctiva Clear Respiratory: Yes: CTA Bilaterally Gastrointestinal: Yes: Soft (Mild epigastric tenderness) Cardiovascular: Yes: Regular Rate and Rhythm JVD: No Carotid Bruit: No PMI: Non-Displaced Heart Sounds: Yes: S1, S2 (RRR) Edema: No Neurological: Yes: Alert, Oriented ...Motor Strength: WNL - Other Data Labs, Other Data: CBC, BMP 11/04/19 18:21 11/04/19 20:20 Troponin, BNP 11/04/19 20:20 Troponin I < 0.02 Troponin, BNP 11/04/19 20:20 Troponin I < 0.02 Echo: Pending Imaging - Results Cat Scan: Report Reviewed EKG: Image Reviewed (NSR without acute ST changes or Q waves) Assessment/Plan IMP: Epigastric pain, with some radiation to sternum. Polysubtance abuse: Cocaine/PCP/Benzos +Tobacco use REC: 1. ETOH: Librium taper as per PMD 2. Epigastric pain: -Reproducible on exam, the pain has some radiation to sternum but is primarily epigastric in nature -Recent Abd CT with no acute pathology -?Gastritis. Lipase is normal. -ECG is benign, 2 sets cardiac enzymes negative. Doubt ACS. -Echo pending, if WNL would not recommend further testing at this time. -Can f/u as outpatient and consider outpatient stress test. 3. Cocaine abuse: -Needs rehab -Cessation strongly advised. 4. Tobacco use: -Strongly recommended cessation 5. HTN: normal 6. Dispo: Patient wants to leave today and recently signed out AMA prior to being evaluated by cardiology. Lives in senior care, asked to speak with home health care social worker.
--- NOTE | 2019-11-05 09:36 | EKG ---
Test Reason : Blood Pressure : / mmHG Vent. Rate : 078 BPM Atrial Rate : 078 BPM P-R Int : 128 ms QRS Dur : 090 ms QT Int : 374 ms P-R-T Axes : 023 030 034 degrees QTc Int : 426 ms NORMAL SINUS RHYTHM NORMAL ECG WHEN COMPARED WITH ECG OF 31-OCT-2019 14:23, NO SIGNIFICANT CHANGE WAS FOUND Confirmed by JESSICA PLAZA MD ([id number]) on 11/05/2019 9:35:46 AM Referred By: Confirmed By:JESSICA PLAZA MD
[2019-11-05] MEDS ORDERED: PANTOPRAZOLE SODIUM 40 MG VIAL IVPUSH SCH (10:00)
[2019-11-05] MEDS ORDERED: MULTIVITAMINS (DAILY MVI) TABLET (FP) PO SCH (10:00)
[2019-11-05] MEDS ORDERED: THIAMINE HCL 100 MG TABLET (FP) PO SCH (10:00)
[2019-11-05] MEDS ORDERED: FOLIC ACID 1 MG TABLET (FP) PO SCH (10:00)
[2019-11-05] MEDS ORDERED: SUCRALFATE 1 GM TABLET (FP) PO SCH (11:00)
[2019-11-05 11:10] LABS: URINE APPEARANCE CLEAR; URINE BILIRUBIN NEGATIVE (NEGATIVE); URINE COLOR YELLOW; URINE GLUCOSE (UA) NEGATIVE (NEGATIVE); URINE KETONE NEGATIVE (NEGATIVE); URINE LEUK ESTERASE NEGATIVE (NEGATIVE); URINE NITRITE NEGATIVE (NEGATIVE); URINE PROTEIN NEGATIVE (NEGATIVE)
--- NOTE | 2019-11-05 13:36 | HOSP ---
Subjective - Review of Symptoms Events since last encounter: I went to see patient in ER, but was informed by RN that patient left AMA earlier Physical Examination Vital Signs: Labs: CBC, BMP 11/04/19 18:21 11/04/19 20:20
--- NOTE | 2019-11-05 15:36 | DS ---
Physical Exam: SUBJECTIVE: Patient seen and examined in the echo suite. Patient stated that his chest pain was improving but still present. Noted that the pain had improved with administration of Mylanta. Noted that his pain was located in the epigastric region staying centrally substernally with some radiation to the left and right. Denied sob, further episodes of nausea, vomiting, dizziness, lightheadedness, visual changes, numbness, tingling, focal or generalized weakness, extremity pain. Spoken to and advised to cease alcohol and drug use. OBJECTIVE: Vital Signs Period Temp Pulse Resp BP Sys/Henry Pulse Ox Last 24 Hr 98 F 76-80 16-18 112-127/60-80 99-100 PHYSICAL EXAM GENERAL: The patient is awake, alert, and fully oriented, in mild acute distress. EYES: PERRL, extraocular movements intact, conjunctiva clear. ENT: Oropharynx clear without exudates, dry mucous membranes. LUNGS: Breath sounds equal, clear to auscultation bilaterally, no wheezes, no crackles, no accessory muscle use. HEART: Regular rate and rhythm, S1, S2 without murmur. ABDOMEN: Soft, mildly tender throughout, nondistended, normoactive bowel sounds, no guarding, no rebound, no masses. EXTREMITIES: 2+ pulses, warm, well-perfused, no edema. NEUROLOGICAL: Cranial nerves II through XII grossly intact. 5/5 muscle strength upper and lower extremities. PSYCH: Pressursed speech, tangential. Agitated. SKIN: Warm, dry, normal turgor. LABS Laboratory Results - last 24 hr 11/04/19 11/04/19 11/05/19 18:21 20:20 05:45 WBC 7.3 RBC 4.76 Hgb 13.3 Hct 40.6 MCV 85.2 MCH 28.0 MCHC 32.9 RDW 16.2 H Plt Count 254 MPV 8.2 Absolute Neuts (auto) 4.4 Neutrophils % 59.9 Lymphocytes % 24.9 Monocytes % 12.0 H Eosinophils % 2.8 D Basophils % 0.4 Nucleated RBC % 0 Sodium 142 Potassium 4.4 Chloride 107 Carbon Dioxide 29 Anion Gap 6 L BUN 15.4 Creatinine 1.1 Est GFR (CKD-EPI)AfAm 89.61 Est GFR (CKD-EPI)NonAf 77.32 Random Glucose 80 Calcium 8.8 Phosphorus 4.6 Magnesium 2.4 Total Bilirubin 0.5 AST 28 ALT 26 Alkaline Phosphatase 111 Creatine Kinase 545 H Creatine Kinase Index 0.8 CK-MB (CK-2) 4.7 H Troponin I < 0.02 Total Protein 6.3 L Albumin 3.5 Lipase 226 Urine Color Yellow Urine Appearance Clear Urine pH 6.0 Ur Specific [place] 1.020 Urine Protein Negative Urine Glucose (UA) Negative Urine Ketones Negative Urine Blood Negative Urine Nitrite Negative Urine Bilirubin Negative Urine Urobilinogen 1.0 Ur Leukocyte Esterase Negative Opiates Screen Methadone Screen Barbiturate Screen Phencyclidine Screen Ur Amphetamines Screen MDMA (Ecstasy) Screen Benzodiazepines Screen Cocaine Screen U Marijuana (THC) Screen 11/05/19 05:45 WBC RBC Hgb Hct MCV MCH MCHC RDW Plt Count MPV Absolute Neuts (auto) Neutrophils % Lymphocytes % Monocytes % Eosinophils % Basophils % Nucleated RBC % Sodium Potassium Chloride Carbon Dioxide Anion Gap BUN Creatinine Est GFR (CKD-EPI)AfAm Est GFR (CKD-EPI)NonAf Random Glucose Calcium Phosphorus Magnesium Total Bilirubin AST ALT Alkaline Phosphatase Creatine Kinase Creatine Kinase Index CK-MB (CK-2) Troponin I Total Protein Albumin Lipase Urine Color Urine Appearance Urine pH Ur Specific [place] Urine Protein Urine Glucose (UA) Urine Ketones Urine Blood Urine Nitrite Urine Bilirubin Urine Urobilinogen Ur Leukocyte Esterase Opiates Screen Negative Methadone Screen Negative Barbiturate Screen Negative Phencyclidine Screen Positive A* Ur Amphetamines Screen Negative MDMA (Ecstasy) Screen Negative Benzodiazepines Screen Positive A* Cocaine Screen Positive A* U Marijuana (THC) Screen Positive A* HOSPITAL COURSE: Rhett Auguste is a 49 male with a past medical history of HTN, HLD, Polysubstance Abuse (cocaine, K2, alcohol) admitted for chest pain likely in the setting of cocaine use. Troponins x1 were negative. EKG with NSR and no ST segment changes. Echo noted normal LV size, function, thickness. Was advised to cease alcohol and cocaine use. Patient's pain improved with Maalox and Protonix. Was started on Librium protocol for alcohol withdrawal as the patient has an extensive drinking history and endorsed drinking up to 5 pints of vodka daily. He had refused IV placement and fluid and banana bag administration and further lab draws. Utox was positive for PCP, benzo, cocaine, marijuana. Was offered detox and refused. Patient became increasingly agitated in the emergency department before transfer to telemetry and nursing notified this television writer that the patient had eloped from the hospital before completion of treatment. The patient had previously eloped or signed out AMA 4 times in the last month. Date of Admission:11/04/19 Date of Discharge: 11/05/19 Minutes to complete discharge: 35 Discharge Summary Problems reviewed: Yes Reason For Visit: ALCOHOL DEPENDENCE WITH WITHDRAWAL - Instructions Disposition: ELOPED - Home Medications Comprehensive Discharge Medication List: Ambulatory Orders Bupropion HCl [Wellbutrin -] 150 mg PO BID 07/05/19 Lansoprazole [Prevacid] 15 mg PO DAILY 07/05/19 Trazodone HCl 150 mg PO HS 07/05/19 clonazePAM [Klonopin -] 0.5 mg PO TID 07/05/19 Chlorpromazine [Thorazine -] 100 mg PO DAILY 07/12/19 Gabapentin [Neurontin -] 300 cap PO DAILY 07/12/19 Divalproex *ER* [Depakote *ER* -] 1 tablet PO BID 10/05/19 Doxepin HCl [Sinequan -] 10 mg PO HS 10/05/19 Famotidine 20 mg PO DAILY 10/05/19 Folic Acid 1 mg PO DAILY 10/05/19 Multivitamins [Multivit ([facility] Formulary)] 1 tablet PO DAILY 10/05/19 Omeprazole 20 mg PO DAILY 10/05/19 Prazosin HCl 1 mg PO HS 10/05/19 Thiamine HCl [Vitamin B-1] 1 tablet PO DAILY 10/05/19 Problem List - Problems (1) Alcohol abuse Code(s): F10.10 - ALCOHOL ABUSE, UNCOMPLICATED (2) Chest pain Code(s): R07.9 - CHEST PAIN, UNSPECIFIED Qualifiers: Chest pain type: unspecified Qualified Code(s): R07.9 - Chest pain, unspecified (3) Cocaine abuse Code(s): F14.10 - COCAINE ABUSE, UNCOMPLICATED (4) Cocaine dependence, uncomplicated Code(s): F14.20 - COCAINE DEPENDENCE, UNCOMPLICATED (5) Depression Code(s): F32.9 - MAJOR DEPRESSIVE DISORDER, SINGLE EPISODE, UNSPECIFIED Qualifiers: Depression Type: unspecified Qualified Code(s): F32.9 - Major depressive disorder, single episode, unspecified (6) Nicotine dependence Code(s): F17.200 - NICOTINE DEPENDENCE, UNSPECIFIED, UNCOMPLICATED (7) Polysubstance abuse Code(s): F19.10 - OTHER PSYCHOACTIVE SUBSTANCE ABUSE, UNCOMPLICATED (8) Substance induced mood disorder Code(s): F19.94 - OTH PSYCHOACTIVE SUBSTANCE USE, UNSP W MOOD DISORDER (9) Low back pain Code(s): M54.5 - LOW BACK PAIN This patient is new to me today: Yes Date on this admission: 11/05/19 Emergency Visit: Yes ED Registration Date: 11/04/19 Care time: The patient presented to the Emergency Department on the above date and was hospitalized for further evaluation of their emergent condition. Critical Care patient: No - Discharge Referral Referred to [facility] Med P.C.: No
[2019-11-06] MEDS ORDERED: chlordiazePOXIDE HCL 25 MG CAPSULE PO SCH (05:00)
[2019-11-07] MEDS ORDERED: chlordiazePOXIDE HCL 10 MG CAPSULE PO PRN
[2019-11-07] MEDS ORDERED: chlordiazePOXIDE HCL 10 MG CAPSULE PO SCH (05:00)
[2019-11-08] MEDS ORDERED: chlordiazePOXIDE HCL 10 MG CAPSULE PO SCH (05:00)
[2019-11-09] MEDS ORDERED: chlordiazePOXIDE HCL 10 MG CAPSULE PO ONE (05:00)
--- NOTE | 2019-11-09 07:43 | ECHO ---
Name: MAIKEL SCHULZ Exam:Adult Echocardiogram Study Date: 11/05/2019 08:32 AM Age: 49 yrs Reason For Study: syncopal episode MMode/2D Measurements & Calculations IVSd: 0.89 cm Ao root diam: 2.9 cm LVIDd: 4.2 cm LA dimension: 3.1 cm LVIDs: 2.9 cm LVPWd: 1.0 cm LVPWs: 1.9 cm EDV(Teich): 79.9 ml ESV(Teich): 32.2 ml LVOT diam: 2.0 cm LAV (MOD-bp): 38.0 ml RV S Isael: 10.1 cm/sec Doppler Measurements & Calculations MV E max isael: 70.6 cm/sec Ao V2 max: 139.1 cm/sec MV A max isael: 68.6 cm/sec Ao max P.7 mmHg MV E/A: 1.0 MANN(V,D): 2.0 cm2 MV dec time: 0.17 sec LV V1 max P.3 mmHg TV V2 max: 206.3 cm/sec LV V1 max: 90.3 cm/sec TV max P.0 mmHg PA V2 max: 95.0 cm/sec PI end-d isael: 115.4 cm/sec PA max P.6 mmHg Med Peak E' Isael: 8.2 cm/sec Med E/e': 8.6 Lat Peak E' Isael: 10.5 cm/sec Lat E/e': 6.7 Left Ventricle The left ventricular size, thickness and function are normal. Ejection Fraction = 50-55%. The left ve ntricular wall motion is normal. Right Ventricle The right ventricle is normal in size and function. Atria Normal left and right atrial size and function. Right atrial size is normal. Mitral Valve The mitral valve is normal in structure and function. There is no mitral valve stenosis. There is tra ce to mild mitral regurgitation. Tricuspid Valve The tricuspid valve is normal in structure and function. There is mild tricuspid regurgitation. Aortic Valve The aortic valve opens well. The aortic valve is trileaflet. No hemodynamically significant valvular aortic stenosis. No aortic regurgitation is present. Pulmonic Valve The pulmonic valve is not well seen, but is grossly normal. There is no pulmonic valvular stenosis. T race pulmonic valvular regurgitation. Great Vessels The aortic root is normal size. Pericardium/Pleura There is no pericardial effusion. Interpretation Summary The left ventricular size, thickness and function are normal There is trace to mild mitral regurgitation. There is mild tricuspid regurgitation. The aortic root is normal size. There is no pericardial effusion. MD Mueller *Mike 11/05/2019 10:32 AM
== END 2019-11-05 09:30 | disposition left against medical advice (07) ==
LOC: JER 16:53 → JERBED 21:06 → INTOOBSV 21:06
PROVIDERS: ADMIT Internal Medicine; ATTEND Internal Medicine
DX: R07.89 Other chest pain (principal); R10.13 Epigastric pain; F10.230 Alcohol dependence with withdrawal, uncomplicated; F14.10 Cocaine abuse, uncomplicated; F12.10 Cannabis abuse, uncomplicated; F17.210 Nicotine dependence, cigarettes, uncomplicated; F32.9 Major depressive disorder, single episode, unspecified; F19.94 Other psychoactive substance use, unspecified with psychoactive substance-induced mood disorder; M54.5 Low back pain
CPT/HCPCS: 36415; 71045-TC-FY; 80053; 80307; 81003; 82550; 82553; 83690; 83735; 84100; 84484; 85025; 93005; 93010; 93306-TC; 99285-25; G0378; J7030

== ENCOUNTER 2019-11-05 18:17 | Inpatient (IN) | payer OTHER ==
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
[2019-11-05 18:48] VITALS: BMI 29.2
--- NOTE | 2019-11-05 19:02 | PDOC ---
History of Present Illness - General Chief Complaint: Alcohol intoxication Stated Complaint: INTOX/ DRUG USE Time Seen by Provider: 11/05/19 18:41 - History of Present Illness Initial Comments: The pt is a 49M w/ a history of HTN, HLD, and polysubstance abuse (cocaine, K2, alcohol) 11/05/19 19:01 Past History - Past Medical History Allergies/Adverse Reactions: Allergies Allergy/AdvReac Type Severity Reaction Status Date / Time Egg Derived Allergy Swelling Verified 11/04/19 17:01 Fish Containing Products Allergy Verified 11/04/19 17:01 peanut Allergy Verified 11/04/19 17:01 pepper (genus Capsicum) Allergy Verified 11/04/19 17:01 Home Medications: Ambulatory Orders Bupropion HCl [Wellbutrin -] 150 mg PO BID 07/05/19 Lansoprazole [Prevacid] 15 mg PO DAILY 07/05/19 Trazodone HCl 150 mg PO HS 07/05/19 clonazePAM [Klonopin -] 0.5 mg PO TID 07/05/19 Chlorpromazine [Thorazine -] 100 mg PO DAILY 07/12/19 Gabapentin [Neurontin -] 300 cap PO DAILY 07/12/19 Divalproex *ER* [Depakote *ER* -] 1 tablet PO BID 10/05/19 Doxepin HCl [Sinequan -] 10 mg PO HS 10/05/19 Famotidine 20 mg PO DAILY 10/05/19 Folic Acid 1 mg PO DAILY 10/05/19 Multivitamins [Multivit ([facility] Formulary)] 1 tablet PO DAILY 10/05/19 Omeprazole 20 mg PO DAILY 10/05/19 Prazosin HCl 1 mg PO HS 10/05/19 Thiamine HCl [Vitamin B-1] 1 tablet PO DAILY 10/05/19 Anemia: No Asthma: No Cancer: No Cardiac Disorders: No CVA: No COPD: No CHF: No Dementia: No Diabetes: No GI Disorders: No Disorders: No HTN: Yes Hypercholesterolemia: Yes Kidney Stones: No Liver Disease: No Seizures: No Thyroid Disease: No - Surgical History Abdominal Surgery: No Appendectomy: No Cardiac Surgery: No Cholecystectomy: No Lung Surgery: No Neurologic Surgery: No - Reproductive History Testicular Surgery: No - Immunization History Td Vaccination: Yes Immunization Up to Date: Yes - Psycho Social/Smoking Cessation Hx Smoking History: Never smoked Have you smoked in the past 12 months: No Number of Cigarettes Smoked Daily: 20 Cigars Per Day: 0 Information on smoking cessation initiated: No 'Breaking Loose' booklet given: 10/05/19 Hx Alcohol Use: No Drug/Substance Use Hx: No Substance Use Type: Alcohol, Cocaine, Marijuana, Prescribed Hx Substance Use Treatment: No Review of Systems - Review of Systems Able to Perform ROS?: Yes Comments:: GENERAL/CONSTITUTIONAL: No fever or chills. No weakness._ HEAD, EYES, EARS, NOSE AND THROAT: No change in vision. No change in hearing. No sore throat._ CARDIOVASCULAR: No chest pain or shortness of breath_ RESPIRATORY: Denies cough, hemoptysis_ GASTROINTESTINAL: No nausea, vomiting, diarrhea or constipation._ GENITOURINARY: No dysuria, frequency, or change in urination._ MUSCULOSKELETAL: No joint or muscle swelling or pain. No neck or back pain._ SKIN: No rash_ NEUROLOGIC: No headache, vertigo, loss of consciousness, or change in strength/sensation._ ENDOCRINE: No increased thirst. No abnormal weight change_ HEMATOLOGIC/LYMPHATIC: No anemia, easy bleeding, or history of blood clots._ ALLERGIC/IMMUNOLOGIC: No hives or skin allergy._ 11/05/19 19:02 Is the patient limited Mosotho proficient: No *Physical Exam - Vital Signs Last Vital Signs Temp Pulse Resp BP Pulse Ox 97.8 F 77 16 105/71 97 11/05/19 18:41 11/05/19 18:41 11/05/19 18:41 11/05/19 18:41 11/05/19 18:41 - Physical Exam GENERAL: Awake, alert, and oriented to person/place/time, in no acute distress_ HEAD: No signs of trauma, normocephalic, atraumatic _ EYES: PERRLA, EOMI, sclera anicteric, conjunctiva clear_ ENT: Hearing grossly normal, nares patent, oropharynx clear without exudates. No uvular deviation. Moist mucosa_ NECK: Normal ROM, supple, no lymphadenopathy, JVD, or masses_ LUNGS: No distress, speaks in full sentences, clear to auscultation bilaterally _ HEART: Regular rate and rhythm, normal S1 and S2, no murmurs appreciated, peripheral pulses normal and equal bilaterally._ ABDOMEN: Soft, nontender, normoactive bowel sounds. No guarding, no rebound. No masses_ EXTREMITIES: Normal inspection, Normal range of motion, no edema. No clubbing or cyanosis_ NEUROLOGICAL: Cranial nerves II through XII grossly intact. Normal speech, normal gait, no focal sensorimotor deficits _ SKIN: Warm, Dry, normal turgor, no rashes or lesions noted_ 11/05/19 19:02 Discharge - Discharge Information Clinical Impression/Diagnosis: Suicidal behavior with attempted self-injury - Follow up/Referral - Patient Discharge Instructions - Post Discharge Activity
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
[2019-11-05] MEDS ORDERED: chlordiazePOXIDE HCL 25 MG CAPSULE PO ONE (19:20)
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
[2019-11-05] MEDS ORDERED: chlordiazePOXIDE HCL 25 MG CAPSULE ONE (19:49)
[2019-11-05 19:55] LABS: BASO % 0.4 % (0-2.0); EOS % 2.2 % (0-4.5); HEMATOCRIT 42.9 % (35.4-49); HEMOGLOBIN 14.4 GM/dL (11.7-16.9); LYMPH % 20.8 % (8-40); MCH 28.3 pg (25.7-33.7); MCHC 33.5 g/dl (32.0-35.9); MEAN CELL VOLUME 84.6 fl (80-96); MEAN PLT VOLUME 8.2 fl (7.5-11.1); MONO % 5.9 % (3.8-10.2); NEUT % 70.7 % (42.8-82.8); PLATELET COUNT 240 K/MM3 (134-434); RBC 5.07 M/mm3 (4.00-5.60); RDW 15.8 % (11.9-15.9); WHITE BLOOD COUNT 8.4 K/mm3 (4.0-10.0)
[2019-11-05 20:17] LABS: ALBUMIN 3.8 g/dl (3.4-5.0); ALK PHOS 95 U/L (45-117); ANION GAP 7 MMOL/L (8-16); BILIRUBIN,TOTAL 0.4 mg/dL (0.2-1); BLOOD UREA NITROGEN 7.6 mg/dL (7-18); CALCIUM 9.2 mg/dL (8.5-10.1); CHLORIDE 107 mmol/L (98-107); CO2 28 mmol/L (21-32); CREATININE 1.1 mg/dL (0.55-1.3); GLUCOSE,RANDOM 96 mg/dL (74-106); LIPASE 1313 U/L (73-393); POTASSIUM 3.9 mmol/L (3.5-5.1); SGOT/AST 28 U/L (15-37); SGPT/ALT 29 U/L (13-61); SODIUM 142 mmol/L (136-145); TOT PROT 6.9 g/dl (6.4-8.2)
[2019-11-05] MEDS ORDERED: ACETAMINOPHEN 1000 MG/100 ML VIAL (NON FORMULARY) IVPB ONE (20:29)
[2019-11-05] MEDS ORDERED: LACTATED RINGERS SOLUTION 1000 ML INFUS.BAG IV ONE (20:29)
[2019-11-05] MEDS ORDERED: LORazepam 2 MG/ML SDV VIAL ONE (22:03)
[2019-11-05] MEDS ORDERED: HALOPERIDOL LACTATE 5 MG/ML ONE (22:14)
[2019-11-05] MEDS ORDERED: BACITRACIN 0.9 GM PACKET ONE (22:17)
[2019-11-05] MEDS ORDERED: HALOPERIDOL LACTATE 5 MG/ML IM ONE (22:42)
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
[2019-11-05] MEDS ORDERED: HALOPERIDOL LACTATE 5 MG/ML IM PRN (22:55)
[2019-11-05] MEDS ORDERED: LORazepam 2 MG/ML SDV VIAL IM PRN ×2 (22:56→23:32)
[2019-11-05] MEDS ORDERED: chlordiazePOXIDE HCL 25 MG CAPSULE PO PRN (23:27)
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
[2019-11-06] MEDS: chlordiazePOXIDE HCL 25 MG CAPSULE PO SCH ×4 (00:28→17:17)
[2019-11-06 00:32] VITALS: PULSE 69
[2019-11-06 05:54] VITALS: BP 126/76; TEMP 98
[2019-11-06 06:39] LABS: BASO % 0.5 % (0-2.0); EOS % 4.5 % (0-4.5); HEMATOCRIT 41.3 % (35.4-49); HEMOGLOBIN 13.9 GM/dL (11.7-16.9); LYMPH % 27.4 % (8-40); MCH 28.5 pg (25.7-33.7); MCHC 33.6 g/dl (32.0-35.9); MEAN CELL VOLUME 84.7 fl (80-96); MEAN PLT VOLUME 8.2 fl (7.5-11.1); MONO % 10.5 % (3.8-10.2); NEUT % 57.1 % (42.8-82.8); PLATELET COUNT 243 K/MM3 (134-434); RBC 4.87 M/mm3 (4.00-5.60); RDW 15.8 % (11.9-15.9); WHITE BLOOD COUNT 5.1 K/mm3 (4.0-10.0)
[2019-11-06 07:01] LABS: ALBUMIN 3.6 g/dl (3.4-5.0); BILIRUBIN,TOTAL 0.5 mg/dL (0.2-1); BLOOD UREA NITROGEN 9.2 mg/dL (7-18); CALCIUM 9.1 mg/dL (8.5-10.1); CREATININE 1.1 mg/dL (0.55-1.3); POTASSIUM 4.6 mmol/L (3.5-5.1); TOT PROT 6.6 g/dl (6.4-8.2)
[2019-11-06] MEDS ORDERED: FOLIC ACID 1 MG TABLET (FP) PO SCH (10:00)
[2019-11-06] MEDS ORDERED: ENOXAPARIN NA (PORCINE) 40 MG/0.4 ML DISP.SYRIN SQ SCH (10:00)
[2019-11-06] MEDS ORDERED: THIAMINE HCL 100 MG TABLET (FP) PO SCH (10:00)
[2019-11-06] MEDS ORDERED: MULTIVITAMINS (DAILY MVI) TABLET (FP) PO SCH (10:00)
--- NOTE | 2019-11-06 10:29 | EKG ---
Test Reason : Blood Pressure : / mmHG Vent. Rate : 075 BPM Atrial Rate : 075 BPM P-R Int : 120 ms QRS Dur : 094 ms QT Int : 410 ms P-R-T Axes : 072 048 056 degrees QTc Int : 457 ms POOR DATA QUALITY, INTERPRETATION MAY BE ADVERSELY AFFECTED NORMAL SINUS RHYTHM NORMAL ECG WHEN COMPARED WITH ECG OF 04-NOV-2019 17:07, NO SIGNIFICANT CHANGE WAS FOUND Confirmed by Porfirio Hubbard MD ([id number]) on 11/06/2019 10:28:44 AM Referred By: Confirmed By:Porfirio Hubbard MD
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
[2019-11-06] MEDS ORDERED: LACTATED RINGERS SOLUTION 1,000 ML/1,000 ML INFUS.BAG IV SCH (16:00)
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
--- NOTE | 2019-11-06 18:03 | DS ---
Physical Exam: SUBJECTIVE: Nursing notified this procedure writer that the patient was agitated, irritable and wanted to leave the hospital. Patient was seen at the bedside and stated he did not want any further treatment and wanted to leave. Was notified that he cannot be discharged as he is currently being treated for pancreatitis and it is not medically cleared for discharge and if he is to leave then he is to leave against medical advice. Patient was told that the risks of leaving are including but limited to further decompensation in his gastrointestinal status, respiratory depression, necrotizing pancreatitis, alcohol withdrawal seizures, delirium tremens, coma, . Continued to endorse that he wanted to leave the hospital. He refused to sign the AMA paperwork. OBJECTIVE: Vital Signs Period Temp Pulse Resp BP Sys/Henry Pulse Ox Last 24 Hr 97.6 F-98 F 69-77 16-16 90-126/56-82 96-97 PHYSICAL EXAM Unwilling to participate in physical examination. LABS Laboratory Results - last 24 hr 11/05/19 11/05/19 11/05/19 19:30 19:33 19:33 WBC 8.4 RBC 5.07 Hgb 14.4 Hct 42.9 MCV 84.6 MCH 28.3 MCHC 33.5 RDW 15.8 Plt Count 240 MPV 8.2 Absolute Neuts (auto) 5.9 Neutrophils % 70.7 Lymphocytes % 20.8 Monocytes % 5.9 Eosinophils % 2.2 Basophils % 0.4 Nucleated RBC % 0 Sodium 142 Potassium 3.9 Chloride 107 Carbon Dioxide 28 Anion Gap 7 L BUN 7.6 Creatinine 1.1 Est GFR (CKD-EPI)AfAm 89.61 Est GFR (CKD-EPI)NonAf 77.32 Random Glucose 96 Calcium 9.2 Total Bilirubin 0.4 AST 28 ALT 29 Alkaline Phosphatase 95 Troponin I < 0.02 Total Protein 6.9 Albumin 3.8 Lipase 1313 H Alcohol, Quantitative 3.9 11/06/19 11/06/19 06:15 06:15 WBC 5.1 RBC 4.87 Hgb 13.9 Hct 41.3 MCV 84.7 MCH 28.5 MCHC 33.6 RDW 15.8 Plt Count 243 MPV 8.2 Absolute Neuts (auto) 2.9 Neutrophils % 57.1 Lymphocytes % 27.4 D Monocytes % 10.5 H Eosinophils % 4.5 D Basophils % 0.5 Nucleated RBC % 0 Sodium 143 Potassium 4.6 Chloride 109 H Carbon Dioxide 29 Anion Gap 5 L BUN 9.2 Creatinine 1.1 Est GFR (CKD-EPI)AfAm 89.61 Est GFR (CKD-EPI)NonAf 77.32 Random Glucose 77 Calcium 9.1 Total Bilirubin 0.5 AST 27 ALT 27 Alkaline Phosphatase 93 Troponin I Total Protein 6.6 Albumin 3.6 Lipase Alcohol, Quantitative HOSPITAL COURSE: Rhett Auguste is a 49 year old male with a past medical history of HTN, HLD, polysubstance abuse (K2, cocaine, alcohol) admitted for pancreatitis. Had elevated lipase as 1313 on admission. Refused IV line and medications. Briefly had consented to treatment before once again refusing all treatment. Had originally stated he was suicidal and deemed to be a threat to himself as per the first visit by psychiatry. Upon reevaluation on the second day of admission, the patient was seen by psychiatry and was noted to no longer suicidal, homicidal, and was cleared by psychiatry to make his own decisions. Patient continued to be irritable and agitated and decided to leave the hospital against medical advice. He refused to sign AMA paperwork. Was advised to cease drinking and drug use and to seek treatment for his substance use disorders. Date of Admission:11/05/19 Date of Discharge: 11/06/19 Minutes to complete discharge: 35 Discharge Summary Problems reviewed: Yes Reason For Visit: ALCOHOL DEPENDENCE, PANCREATITIS Current Active Problems Alcohol dependence with withdrawal (Acute) Bilateral knee pain (Acute) Pancreatitis (Acute) Suicidal behavior with attempted self-injury (Acute) Condition: Guarded - Instructions Disposition: ELOPED Problem List - Problems (1) Pancreatitis Code(s): K85.90 - ACUTE PANCREATITIS WITHOUT NECROSIS OR INFECTION, UNSP Qualifiers: Chronicity: acute Acute pancreatitis complication: unspecified (2) Alcohol abuse Code(s): F10.10 - ALCOHOL ABUSE, UNCOMPLICATED (3) Alcohol dependence, uncomplicated Code(s): F10.20 - ALCOHOL DEPENDENCE, UNCOMPLICATED (4) Cocaine abuse Code(s): F14.10 - COCAINE ABUSE, UNCOMPLICATED (5) Depression Code(s): F32.9 - MAJOR DEPRESSIVE DISORDER, SINGLE EPISODE, UNSPECIFIED Qualifiers: Depression Type: unspecified Qualified Code(s): F32.9 - Major depressive disorder, single episode, unspecified (6) Elevated lipase Code(s): R74.8 - ABNORMAL LEVELS OF OTHER SERUM ENZYMES (7) Epigastric pain Code(s): R10.13 - EPIGASTRIC PAIN (8) Nicotine dependence Code(s): F17.200 - NICOTINE DEPENDENCE, UNSPECIFIED, UNCOMPLICATED (9) Polysubstance abuse Code(s): F19.10 - OTHER PSYCHOACTIVE SUBSTANCE ABUSE, UNCOMPLICATED (10) Substance induced mood disorder Code(s): F19.94 - OTH PSYCHOACTIVE SUBSTANCE USE, UNSP W MOOD DISORDER (11) PTSD (post-traumatic stress disorder) Code(s): F43.10 - POST-TRAUMATIC STRESS DISORDER, UNSPECIFIED (12) Schizoaffective disorder Code(s): F25.9 - SCHIZOAFFECTIVE DISORDER, UNSPECIFIED This patient is new to me today: No Emergency Visit: Yes ED Registration Date: 11/05/19 Care time: The patient presented to the Emergency Department on the above date and was hospitalized for further evaluation of their emergent condition. Critical Care patient: No - Discharge Referral Referred to [facility] Med P.C.: No
[2019-11-07] MEDS ORDERED: chlordiazePOXIDE HCL 25 MG CAPSULE PO SCH (05:00)
[2019-11-08] MEDS ORDERED: chlordiazePOXIDE HCL 10 MG CAPSULE PO PRN
[2019-11-08] MEDS ORDERED: chlordiazePOXIDE HCL 10 MG CAPSULE PO SCH (05:00)
[2019-11-09] MEDS ORDERED: chlordiazePOXIDE HCL 10 MG CAPSULE PO SCH (05:00)
[2019-11-10] MEDS ORDERED: chlordiazePOXIDE HCL 10 MG CAPSULE PO ONE (05:00)
== END 2019-11-06 18:00 | disposition left against medical advice (07) | DRG 351 ==
LOC: JER 18:17 → JERBED 21:55 → J7W 11-06 00:27
PROVIDERS: ADMIT Internal Medicine; ATTEND Internal Medicine
PROC: HZ2ZZZZ Detoxification Services for Substance Abuse Treatment (ICD-10-PCS; principal; 2019-11-05)
DX: T14.91XA Suicide attempt, initial encounter (principal); K85.20 Alcohol induced acute pancreatitis without necrosis or infection; F14.20 Cocaine dependence, uncomplicated; F12.20 Cannabis dependence, uncomplicated; F32.9 Major depressive disorder, single episode, unspecified; F25.9 Schizoaffective disorder, unspecified; G62.9 Polyneuropathy, unspecified; F43.10 Post-traumatic stress disorder, unspecified; F10.232 Alcohol dependence with withdrawal with perceptual disturbance; F19.94 Other psychoactive substance use, unspecified with psychoactive substance-induced mood disorder; R45.1 Restlessness and agitation; R07.89 Other chest pain; M25.561 Pain in right knee; M25.562 Pain in left knee; M25.572 Pain in left ankle and joints of left foot; Y92.89 Other specified places as the place of occurrence of the external cause
CPT/HCPCS: 36415; 71046-TC-FY; 73562-TC-LT-FY; 73562-TC-RT-FY; 73610-TC-LT-FY; 73630-TC-LT; 80053; 80307; 83690; 84484; 85025; 93005; 93010; 99285-25

== ENCOUNTER 2019-11-14 00:01 | Emergency (ER) | payer OTHER ==
[2019-11-14 00:39] VITALS: BMI 24.3
--- NOTE | 2019-11-14 01:03 | PDOC ---
Attending Attestation - Resident Resident Name: Faisal Vences - ED Attending Attestation I have performed the following: I have examined & evaluated the patient, The case was reviewed & discussed with the resident, I agree w/resident's findings & plan - HPI HPI: 11/14/19 01:49 Pt is alcohol intox. Flushed and red and drunk. No particular complaints. States that everything hurts. - Physicial Exam PE: 11/14/19 01:50 Face flushed Afebrile VSS heart RRR lungs CTA b abd soft nt nd no flank pain edema of legs bilat. - Medical Decision Making 11/14/19 02:43 WBC normal Hb/HCT normal 11/14/19 03:17 Labs normal pt is cleared to go home. 11/14/19 04:51 chems is normal alxohol is 50 Discharge - Discharge Information Problems reviewed: Yes Clinical Impression/Diagnosis: Alcohol abuse Condition: Stable Disposition: HOME - Follow up/Referral - Patient Discharge Instructions Additional Instructions: You were seen with intoxication. Your labs were unconcerning. Please follow up with your primary care doctor within one week. Return to the ED if you develop new or worsening symptoms. - Post Discharge Activity
--- NOTE | 2019-11-14 01:41 | PDOC ---
History of Present Illness - General Chief Complaint: Substance Abuse Stated Complaint: DRUG ABUSE/ K2 Time Seen by Provider: 11/14/19 00:57 - History of Present Illness Initial Comments: 11/14/19 01:47 49 yo M PMH HTN, HLD, polysubstance abuse (K2, cocaine, alcohol), admitted last week for pancreatitis but left AMA, presenting with "pain everywhere". Refuses to answer majority of questions and demands "a woman doctor". Does state that he took K2 and drank today, but refuses to say when or how much. Unable to get ROS as patient refuses to answer questions. Past History - Past Medical History Allergies/Adverse Reactions: Allergies Allergy/AdvReac Type Severity Reaction Status Date / Time Egg Derived Allergy Swelling Verified 11/14/19 00:35 Fish Containing Products Allergy Verified 11/14/19 00:35 peanut Allergy Verified 11/14/19 00:35 pepper (genus Capsicum) Allergy Verified 11/14/19 00:35 Anemia: No Asthma: No Cancer: No Cardiac Disorders: No CVA: No COPD: No CHF: No Dementia: No Diabetes: No GI Disorders: No Disorders: No HTN: Yes Hypercholesterolemia: Yes Kidney Stones: No Liver Disease: No Seizures: No Thyroid Disease: No - Surgical History Abdominal Surgery: No Appendectomy: No Cardiac Surgery: No Cholecystectomy: No Lung Surgery: No Neurologic Surgery: No - Reproductive History Testicular Surgery: No - Immunization History Td Vaccination: Yes Immunization Up to Date: Yes - Psycho Social/Smoking Cessation Hx Smoking History: Unknown if ever smoked Have you smoked in the past 12 months: No Number of Cigarettes Smoked Daily: 20 Cigars Per Day: 0 Information on smoking cessation initiated: No 'Breaking Loose' booklet given: 10/05/19 Hx Alcohol Use: Yes Drug/Substance Use Hx: Yes Substance Use Type: Alcohol, Cocaine, Marijuana, Prescribed Hx Substance Use Treatment: No Review of Systems - Review of Systems Comments:: 11/14/19 01:49 Unable to get ROS due to patient refusing to answer questions. *Physical Exam - Vital Signs Last Vital Signs Temp Pulse Resp BP Pulse Ox 98.1 F 85 21 H 110/75 95 11/14/19 00:35 11/14/19 01:25 11/14/19 01:25 11/14/19 00:35 11/14/19 01:25 - Physical Exam 11/14/19 01:49 Gen: well-developed, well-nourished, clinically intoxicated Neuro: CN II-XII grossly intact, rotary nystagmus HEENT: atraumatic, normocephalic, dry mucous membranes Neck: trachea midline, supple CV: regular rate, regular rhythm, no murmurs, rubs, or gallops Pulm: CTA b/l, no wheezing Abd: soft, non-distended, non-tender MSK: full ROM, intact pulses Extr: no edema, no deformities Skin: warm, dry ED Treatment Course - LABORATORY CBC & Chemistry Diagram: 11/14/19 01:50 11/14/19 01:50 Medical Decision Making - Medical Decision Making 11/14/19 01:50 Unable to get strong differential due to patient refusal to answer questions. Recently diagnosed with pancreatitis, appears clinically intoxicated. - CBC, CMP - alcohol level - lipase 11/14/19 03:07 Labs unremarkable, alcohol level 50. Will dc. 11/14/19 04:35 Patient complaining of L ankle swelling. Will get ankle X ray. 11/14/19 06:43 Ankle X ray without acute pathology. Patient states he wants detox. Will send with security at 0730. Discharge - Discharge Information Problems reviewed: Yes Clinical Impression/Diagnosis: Alcohol abuse Condition: Stable Disposition: HOME - Admission No - Follow up/Referral - Patient Discharge Instructions Additional Instructions: You were seen with intoxication. Your labs were unconcerning. Please follow up with your primary care doctor within one week. Return to the ED if you develop new or worsening symptoms. - Post Discharge Activity
[2019-11-14 02:26] LABS: BASO % 0.5 % (0-2.0); EOS % 2.6 % (0-4.5); HEMATOCRIT 41.7 % (35.4-49); HEMOGLOBIN 13.6 GM/dL (11.7-16.9); LYMPH % 27.1 % (8-40); MCH 27.9 pg (25.7-33.7); MCHC 32.6 g/dl (32.0-35.9); MEAN CELL VOLUME 85.7 fl (80-96); MEAN PLT VOLUME 8.3 fl (7.5-11.1); MONO % 10.7 % (3.8-10.2); NEUT % 59.1 % (42.8-82.8); PLATELET COUNT 279 K/MM3 (134-434); RBC 4.87 M/mm3 (4.00-5.60); RDW 15.5 % (11.9-15.9); WHITE BLOOD COUNT 6.8 K/mm3 (4.0-10.0)
[2019-11-14 03:04] LABS: ALBUMIN 3.6 g/dl (3.4-5.0); BILIRUBIN,TOTAL 0.2 mg/dL (0.2-1); BLOOD UREA NITROGEN 10.4 mg/dL (7-18); CALCIUM 8.5 mg/dL (8.5-10.1); POTASSIUM 3.5 mmol/L (3.5-5.1); TOT PROT 6.6 g/dl (6.4-8.2)
[2019-11-14 05:49] VITALS: BP 122/88; PULSE 86; TEMP 98.2
== END 2019-11-14 08:58 | disposition home or self-care (01) ==
LOC: JER 00:01
DX: F10.10 Alcohol abuse, uncomplicated (principal); Y90.2 Blood alcohol level of 40-59 mg/100 ml; F19.10 Other psychoactive substance abuse, uncomplicated; K86.9 Disease of pancreas, unspecified
CPT/HCPCS: 36415; 73610-TC-LT-FY; 73630-TC-LT; 80053; 80307; 83690; 85025; 99284-25

== ENCOUNTER 2019-11-14 09:10 | Inpatient (IN) | payer OTHER ==
--- NOTE | 2019-11-14 10:43 | BHS.RME ---
Substance Use & Tx History - Substance Use History Opiates (Heroin) Substance amount: 4 bags Substance route: Inhalation (ex: sniffing or snorting) Date of Last Use: 11/13/19 Alcohol Substance amount: 3 pints of vodka/6 packs of 24 ozs of beer Frequency of use: Daily Substance route: Oral Date of Last Use: 11/14/19 Cocaine (Crack) Substance amount: 30$ Frequency of use: Daily Substance route: Smoking k2 Frequency of use: Daily Substance route: Smoking Date of Last Use: 11/13/19 - Last Treatment Date of last treatment: 11/14/2019 Where was last treatment: ER Physical/Psych/Mental Status - Behavior General Behavior: Increased activity (restlessness, agitation) Eye Contact: Normal - Cooperativeness Cooperativeness: Cooperative - Thinking Thought Processes: Logical Thought content: Future oriented - Physical Health Problems Is patient presently having any pain?: No Does patient presently have any injuries (include location): No Does patient currently have a fever: No COWS - Scale Resting Pulse: 0= [place] 80 or Below Sweatin= Chills/Flushing Restless Observation: 1= Difficult to Sit Still Pupil Size: 1= Pupils >than Normal Bone or Joint Aches: 2= Severe Diffuse Aches Runny Nose/ Eye Tearin= Runny Nose/Eyes GI Upset > 30mins: 2= Nausea/Diarrhea Tremor Observation: 2= Slight Tremor Visible Yawning Observation: 2= >3x During Session Anxiety or Irritability: 2=Irritable/Anxious Goose Flesh Skin: 0=Smooth Skin COWS Score: 15 CIWA Nausea/Vomitin Muscle Tremors: 3 Anxiety: 3 Agitation: 3 Paroxysmal Sweats: 1-Minimal Palms Moist Orientation: 0-Oriented Tacttile Disturbances: 1-Very Mild Itch/Numbness Auditory Disturbances: 0-None Visual Disturbances: 0-None Headache: 2-Mild CIWA-Ar Total Score: 15
[2019-11-14 11:24] VITALS: BMI 29.2
--- NOTE | 2019-11-14 12:12 | HP ---
COWS - Scale Resting Pulse: 0= [place] 80 or Below Sweatin= Chills/Flushing Restless Observation: 1= Difficult to Sit Still Pupil Size: 1= Pupils >than Normal Bone or Joint Aches: 2= Severe Diffuse Aches Runny Nose/ Eye Tearin= Runny Nose/Eyes GI Upset > 30mins: 2= Nausea/Diarrhea Tremor Observation: 2= Slight Tremor Visible Yawning Observation: 2= >3x During Session Anxiety or Irritability: 2=Irritable/Anxious Goose Flesh Skin: 0=Smooth Skin COWS Score: 15 CIWA Score Nausea/Vomitin Muscle Tremors: 3 Anxiety: 3 Agitation: 3 Paroxysmal Sweats: 1-Minimal Palms Moist Orientation: 0-Oriented Tacttile Disturbances: 1-Very Mild Itch/Numbness Auditory Disturbances: 0-None Visual Disturbances: 0-None Headache: 2-Mild CIWA-Ar Total Score: 15 - Admission Criteria OASAS Guidelines: Admission for Medically Managed Detox: Requires at least one of the followin. CIWA greater than 12 2. Seizures within the past 24 hours 3. Delirium tremens within the past 24 hours 4. Hallucinations within the past 24 hours 5. Acute intervention needed for co occurring medical disorder 6. Acute intervention needed for co occurring psychiatric disorder 7. Severe withdrawal that cannot be handled at a lower level of care (continued vomiting, continued diarrhea, abnormal vital signs) requiring intravenous medication and/or fluids 8. Admitting History and Physical - Admission Chief Complaint: I need help to stop using heroin,alcohol,crack and k2 History of Present Illness: this 49 years old male with heroin,alcohol,crack,k2 dependence,seeking detox, seen in er last night history of non compliance history of pancreatitis history of methadone maintenance in the past history of [id number] in the past but did not take in ,last taken 3 weeks ago patient was seen and treated at [facility] had xray left ankle no significant period of sobriety homeless,unemployed plan for rehab after detox has bipolar disorder,depression History Source: Patient Limitations to Obtaining History: No Limitations - Past Medical History STRE[address] [place]: Yes: Syncope Cardiovascular: Yes: HTN Gastrointestinal: Yes: Pancreatitis Psych: Yes: Addictions, Bipolar, Depression, Other (ptsd) Musculoskeletal: Yes: Other (sprain of left ankle) - Smoking History Smoking history: Unknown if ever smoked Have you smoked in the past 12 months: No Aproximately how many cigarettes per day: 20 - Alcohol/Substance Use Hx Alcohol Use: Yes History of Substance Use: reports: Cocaine - Social History Occupation: unemployed History of Recent Travel: No Admission ROS [facility] Chief Complaint: i need help to stop using heroin,alcohol,crack, and k2 Allergies/Adverse Reactions: Allergies Allergy/AdvReac Type Severity Reaction Status Date / Time Egg Derived Allergy Swelling Verified 11/14/19 11:06 Fish Containing Products Allergy Verified 11/14/19 11:06 peanut Allergy Verified 11/14/19 11:06 pepper (genus Capsicum) Allergy Verified 11/14/19 11:06 History of Present Illness: this 49 years old male with heroin,alcohol,crack,k2 dependence seeking detox,seen at [facility] - Ebola screening Have you traveled outside of the country in the last 21 days: No Have you had contact with anyone from an Ebola affected area: No Have you been sick,other than usual withdrawal symptoms: No Do you have a fever: No - Review of Systems Constitutional: Chills, Loss of Appetite, Malaise, Night Sweats, Changes in sleep EENT: reports: Tearing, Nose Congestion Respiratory: reports: No Symptoms reported Cardiac: reports: No Symptoms Reported GI: reports: Nausea, Poor Appetite, Abdominal cramping Musculoskeletal: reports: Joint Pain (swelling with pain in left ankle), Muscle Pain Integumentary: reports: Dryness Neuro: reports: Tremors Endocrine: reports: No Symptoms Reported Hematology: reports: No Symptoms Reported Psychiatric: reports: No Sypmtoms Reported, Judgement Intact, Mood/Affect Appropiate, Orientated x3, Depressed, other (bipolar disorder) Patient History - Patient Medical History Hx Anemia: No Hx Asthma: No Hx Chronic Obstructive Pulmonary Disease (COPD): No Hx Cancer: No Hx Cardiac Disorders: No Hx Congestive Heart Failure: No Hx Hypertension: Yes (non compliance) Hx Hypercholesterolemia: Yes (non compliance) Hx Pacemaker: No HX Cerebrovascular Accident: No Hx Seizures: No Hx Dementia: No Hx Diabetes: No Hx Gastrointestinal Disorders: No Hx Liver Disease: No Hx Genitourinary Disorders: No Hx Sexually Transmitted Disorders: No Hx Renal Disease (ESRD): No Hx Thyroid Disease: No Hx Human Immunodeficiency Virus (HIV): No (09/2019 last negative) Hx Hepatitis C: No Hx Depression: Yes Hx Suicide Attempt: No Hx Bipolar Disorder: Yes Hx Schizophrenia: No Other Medical History: no suicidal,no homicidal - Patient Surgical History Past Surgical History: No Hx Neurologic Surgery: No Hx Cataract Extraction: No Hx Cardiac Surgery: No Hx Lung Surgery: No Hx Breast Surgery: No Hx Breast Biopsy: No Hx Abdominal Surgery: No Hx Appendectomy: No Hx Cholecystectomy: No Anesthesia Reaction: No - PPD History Date: 10/08/19 PPD to be Administered?: Yes - Smoking Cessation Smoking history: Unknown if ever smoked Have you smoked in the past 12 months: No Aproximately how many cigarettes per day: 20 Cigars Per Day: 0 Hx Chewing Tobacco Use: No - Substances abused Alcohol Substance route: Oral Frequency: Daily Amount used: 5 PINTS OF VODKA Age of first use: 9 Date of last use: 11/13/19 K2/Spice Substance route: Smoking Frequency: Daily Amount used: $30 Age of first use: 48 Date of last use: 11/13/19 Heroin Substance route: Injection Frequency: Daily Amount used: 4 BAGS Age of first use: 13 Date of last use: 11/13/19 Cocaine Substance route: Smoking Frequency: Daily Amount used: $30 Age of first use: 48 Date of last use: 11/13/19 Other Other (specify): PCP Substance route: Smoking Frequency: Daily Amount used: 2-3 Age of first use: 13 Date of last use: 11/14/19 Admission Physical Exam BHS - Vital Signs Vital Signs: Vital Signs - 24 hr 11/14/19 11:19 Temperature 98.8 F Pulse Rate 78 Respiratory 18 Rate Blood Pressure 123/84 - Physical General Appearance: Yes: Moderate Distress, Tremorous, Irritable, Sweating, Anxious HEENTM: Yes: Normal ENT Inspection, AMARIS, Pharynx Normal Respiratory: Yes: Lungs Clear, Normal Breath Sounds, No Respiratory Distress Neck: Yes: Within Normal Limits, Supple, Trachea in good position Breast: Yes: Within Normal Limits Cardiology: Yes: Within Normal Limits, Regular Rhythm, Regular Rate, S1, S2 Abdominal: Yes: Within Normal Limits, Normal Bowel Sounds, Non Tender, Flat, Soft Genitourinary: Yes: Within Normal Limits Back: Yes: Muscle Spasm Musculoskeletal: Yes: Back pain, Joint swelling (swelling left ankle with tenderness), Muscle Pain Extremities: Yes: Tremors Neurological: Yes: physical sciences professor II-XII NML intact, Fully Oriented, Alert, Motor Strength 5/5 Integumentary: Yes: Dry Lymphatic: Yes: Within Normal Limits - Diagnostic (1) Opioid dependence with withdrawal Current Visit: Yes Status: Acute (2) Alcohol dependence with withdrawal Current Visit: No Status: Acute Qualifiers: Complication of substance-induced condition: uncomplicated Qualified Code(s): F10.230 - Alcohol dependence with withdrawal, uncomplicated (3) Cocaine dependence, uncomplicated Current Visit: No Status: Acute (4) Syncope Current Visit: Yes Status: Acute (5) Nicotine dependence Current Visit: No Status: Acute (6) PTSD (post-traumatic stress disorder) Current Visit: No Status: Chronic (7) Bipolar disorder Current Visit: Yes Status: Acute (8) Depression Current Visit: Yes Status: Acute (9) Sprain of left ankle Current Visit: Yes Status: Acute (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
[2019-11-14] MEDS ORDERED: ONDANSETRON *ODT* 4 MG TABLET SL ONE (12:31)
[2019-11-14] MEDS ORDERED: IBUPROFEN 400 MG TABLET (FP) PO PRN (12:31)
[2019-11-14] MEDS ORDERED: MAGNESIUM CITRATE 300 ML BOTTLE PO PRN (12:31)
[2019-11-14] MEDS ORDERED: METHOCARBAMOL 500 MG TABLET PO PRN (12:31)
[2019-11-14] MEDS ORDERED: ACETAMINOPHEN 325 MG TABLET (FP) PO PRN ×2 (12:31)
[2019-11-14] MEDS ORDERED: chlordiazePOXIDE HCL 25 MG CAPSULE PO PRN (12:31)
[2019-11-14] MEDS ORDERED: BISMUTH SUBSALICYLATE 524 MG/30 ML UD PO PRN (12:31)
[2019-11-14] MEDS ORDERED: MAGNESIUM HYDROX 2400MG/30ML ORAL SUSPENSION 30 ML CUP PO PRN (12:31)
[2019-11-14] MEDS ORDERED: cloNIDine HCL 0.1 MG TABLET PO PRN (12:31)
[2019-11-14] MEDS ORDERED: MENTHOL/PHENOL 1 EACH UD MM PRN (12:31)
[2019-11-14] MEDS ORDERED: METHADONE HCL 10 MG TABLET (FOR DETOX USE ONLY) PO ONE (12:45)
[2019-11-14] MEDS: hydrOXYzine PAMOATE 25 MG CAPSULE (FP) PO SCH ×3 (13:57→22:55)
[2019-11-14] MEDS: MAG HYDROX/AL HYDROX/SIMETH 30 ML UNIT-DOSE CUP PO PRN ×2 (16:24→22:25)
[2019-11-14] MEDS: chlordiazePOXIDE HCL 25 MG CAPSULE PO SCH ×2 (17:26→22:54)
[2019-11-14] MEDS: THIAMINE HCL 100 MG TABLET (FP) PO SCH (22:55)
[2019-11-14] MEDS: MELATONIN 5 MG TABLETS PO SCH (22:56)
[2019-11-15] MEDS: hydrOXYzine PAMOATE 25 MG CAPSULE (FP) PO SCH ×5 (05:49→22:30)
[2019-11-15] MEDS: chlordiazePOXIDE HCL 25 MG CAPSULE PO SCH ×4 (05:49→22:15)
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
[2019-11-15] MEDS ORDERED: METHADONE HCL 5 MG TABLET (FOR DETOX USE ONLY) ONE (09:38)
[2019-11-15] MEDS ORDERED: METHADONE HCL 10 MG TABLET (FOR DETOX USE ONLY) ONE (09:39)
[2019-11-15] MEDS ORDERED: METHADONE (DETOX) 20 MG, METHADONE (DETOX) 5 MG PO ONE (10:00)
[2019-11-15] MEDS: PRENATAL VITAMINS W/ FOLIC ACID TABLET (FP) PO SCH (11:00)
[2019-11-15] MEDS: BUPROPION HCL 300 MG, BUPROPION HCL 150 MG PO SCH (11:05)
--- NOTE | 2019-11-15 13:51 | PN ---
S CIWA - CIWA Score Nausea/Vomitin Muscle Tremors: 3 Anxiety: 3 Agitation: 3 Paroxysmal Sweats: No Perspiration Orientation: 0-Oriented Tacttile Disturbances: 1-Very Mild Itch/Numbness Auditory Disturbances: 0-None Visual Disturbances: 0-None Headache: 1-Very Mild CIWA-Ar Total Score: 13 BHS COWS - Scale Resting Pulse: 2= [place] 101-120 Sweatin= No chills or Flushing Restless Observation: 1= Difficult to Sit Still Pupil Size: 1= Pupils >than Normal Bone or Joint Aches: 2= Severe Diffuse Aches Runny Nose/ Eye Tearin= Runny Nose/Eyes GI Upset > 30mins: 2= Nausea/Diarrhea Tremor Observation of Outstretched Hands: 2= Slight Tremor Visible Yawning Observation: 1= 1-2x During Session Anxiety or Irritability: 2=Irritable/Anxious Goose Flesh Skin: 0=Smooth Skin COWS Score: 15 BHS Progress Note (SOAP) Subjective: alert,irritable,anxious,interrupted sleep,pain in the body,pain in the left ankle is less Objective: 11/15/19 13:49 Vital Signs Temperature 97.7 F 11/15/19 08:30 Pulse Rate 120 H 11/15/19 08:30 Respiratory Rate 18 11/15/19 08:30 Blood Pressure 124/82 11/15/19 08:30 O2 Sat by Pulse Oximetry (%) Assessment: 11/15/19 13:50 withdrawal symptom Plan: continue detox methadone and librium regimen,,cbc,cmp in am
[2019-11-15] MEDS ORDERED: NICOTINE POLACRILEX 2 MG GUM BUC PRN (13:54)
[2019-11-15] MEDS: NICOTINE 21 MG/24 HOURS TOPICAL PATCH TD SCH (14:45)
[2019-11-15] MEDS: MAG HYDROX/AL HYDROX/SIMETH 30 ML UNIT-DOSE CUP PO PRN (16:44)
[2019-11-15] MEDS: THIAMINE HCL 100 MG TABLET (FP) PO SCH (21:41)
[2019-11-15] MEDS: MELATONIN 5 MG TABLETS PO SCH (21:41)
[2019-11-15] MEDS: PANTOPRAZOLE 20 MG TABLET PO SCH (21:42)
[2019-11-15] MEDS ORDERED: DOXEPIN HCL 10 MG CAPSULE PO SCH (22:00)
[2019-11-15] MEDS ORDERED: PRAZOSIN HCL 1 MG CAPSULE PO SCH (22:00)
[2019-11-15] MEDS ORDERED: ARIPiprazole 10 MG TABLET PO SCH (22:00)
[2019-11-16] MEDS: chlordiazePOXIDE HCL 25 MG CAPSULE PO SCH ×2 (06:41→10:03)
[2019-11-16] MEDS: hydrOXYzine PAMOATE 25 MG CAPSULE (FP) PO SCH ×2 (06:41→10:02)
[2019-11-16 09:09] VITALS: BP 104/71; PULSE 66; TEMP 98.2
[2019-11-16] MEDS ORDERED: METHADONE HCL 10 MG TABLET (FOR DETOX USE ONLY) PO ONE ×3 (09:49→10:30)
[2019-11-16] MEDS: BUPROPION HCL 300 MG, BUPROPION HCL 150 MG PO SCH (10:02)
[2019-11-16] MEDS: PRENATAL VITAMINS W/ FOLIC ACID TABLET (FP) PO SCH (10:03)
[2019-11-16] MEDS: PANTOPRAZOLE 20 MG TABLET PO SCH (10:03)
[2019-11-16] MEDS: NICOTINE 21 MG/24 HOURS TOPICAL PATCH TD SCH (10:03)
--- NOTE | 2019-11-16 10:40 | PN ---
[facility] Progress Note Note: Patient is discharged today. Scripts for 30 days supply of medications(Abilify 10 mg/hs, Wellbutrin XL 450 mg/day, Doxepin 10 mg/hs, Prazosin 3 mg/hs) are electronically transmitted to [facility], [address] [place], [place] [id number]
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
--- NOTE | 2019-11-16 15:08 | DS ---
[facility] Detox Discharge Summary Admission Date: 11/14/19 - History Present History: Alcohol Dependence, Cannabis Dependence, Cocaine Dependence, Opioid Dependence, Pcp Dependence - Physical Exam Results Vital Signs: Vital Signs Temperature 98.2 F 11/16/19 08:35 Pulse Rate 66 11/16/19 08:35 Respiratory Rate 11/16/19 08:35 Blood Pressure 104/71 11/16/19 08:35 O2 Sat by Pulse Oximetry (%) Pertinent Admission Physical Exam Findings: Vital Signs Temperature 98.2 F 11/16/19 08:35 Pulse Rate 66 11/16/19 08:35 Respiratory Rate 11/16/19 08:35 Blood Pressure 104/71 11/16/19 08:35 O2 Sat by Pulse Oximetry (%) Laboratory Tests 11/15/19 07:00 RPR Titer Nonreactive aaox3 ambulating no acute distress - Treatment Hospital Course: Rehab Referral Accepted - Medication Discharge Medications: Ambulatory Orders Gabapentin 300 mg PO TID 11/14/19 Aripiprazole [Abilify -] 10 mg PO HS #30 tablet 11/16/19 Bupropion HCl [Wellbutrin Sr] 450 mg PO BID #90 tab.sr 11/16/19 Doxepin HCl [Sinequan -] 10 mg PO HS #30 capsule 11/16/19 Prazosin HCl [Minipress -] 3 mg PO HS #90 capsule 11/16/19 - Diagnosis (1) Alcohol dependence with withdrawal Status: Chronic Qualifiers: Complication of substance-induced condition: uncomplicated Qualified Code(s): F10.230 - Alcohol dependence with withdrawal, uncomplicated (2) Bilateral knee pain Status: Acute Qualifiers: Chronicity: acute Qualified Code(s): M25.561 - Pain in right knee; M25.562 - Pain in left knee (3) Bipolar disorder Status: Acute (4) Cannabis dependence Status: Chronic (5) Cocaine dependence Status: Chronic Qualifiers: Substance use status: uncomplicated Qualified Code(s): F14.20 - Cocaine dependence, uncomplicated (6) Depressed affect Status: Acute (7) Depression Status: Acute Qualifiers: Depression Type: unspecified Qualified Code(s): F32.9 - Major depressive disorder, single episode, unspecified (8) Elevated lipase Status: Acute (9) Epigastric pain Status: Acute (10) Nasal bone fracture Status: Acute Qualifiers: Encounter type: initial encounter Fracture type: closed Qualified Code(s): S02.2XXA - Fracture of nasal bones, initial encounter for closed fracture (11) Opioid dependence with withdrawal Status: Chronic (12) Phencyclidine abuse Status: Chronic (13) Polysubstance abuse Status: Acute (14) Substance induced mood disorder Status: Acute (15) Substance induced mood disorder Status: Acute (16) Substance-induced sleep disorder Status: Acute (17) Suicidal behavior with attempted self-injury Status: Acute (18) Syncope Status: Acute (19) Syncope and collapse Status: Acute (20) Synthetic cannabis-induced anxiety disorder Status: Acute (21) Alcoholic gastritis Status: Chronic Qualifiers: Chronicity: acute Gastritis bleeding: without bleeding Qualified Code(s): K29.20 - Alcoholic gastritis without bleeding (22) Dyslipidemia Status: Chronic (23) HTN (hypertension) Status: Chronic (24) Low back pain Status: Chronic Qualifiers: Qualified Code(s): M54.5 - Low back pain; G89.29 - Other chronic pain (25) Nicotine dependence Status: Chronic Qualifiers: Nicotine product type: cigarettes Substance use status: uncomplicated Qualified Code(s): F17.210 - Nicotine dependence, cigarettes, uncomplicated (26) PTSD (post-traumatic stress disorder) Status: Chronic (27) Schizoaffective disorder Status: Chronic (28) Sprain of left ankle Status: Chronic (29) Opioid dependence on agonist therapy Status: Suspected (30) Pancreatitis Status: Resolved Qualifiers: Chronicity: acute Acute pancreatitis complication: unspecified - AMA Did Patient Leave Against Medical Advice: Yes
[2019-11-17] MEDS ORDERED: chlordiazePOXIDE HCL 10 MG CAPSULE PO PRN
[2019-11-17] MEDS ORDERED: chlordiazePOXIDE HCL 10 MG CAPSULE PO SCH (05:00)
[2019-11-17] MEDS ORDERED: METHADONE HCL 5 MG TABLET (FOR DETOX USE ONLY) PO ONE (10:00)
[2019-11-17] MEDS ORDERED: METHADONE (DETOX) 10 MG, METHADONE (DETOX) 5 MG PO ONE (10:00)
[2019-11-18] MEDS ORDERED: chlordiazePOXIDE HCL 10 MG CAPSULE PO SCH (05:00)
[2019-11-18] MEDS ORDERED: METHADONE HCL 10 MG TABLET (FOR DETOX USE ONLY) PO ONE ×2 (10:00)
[2019-11-19] MEDS ORDERED: chlordiazePOXIDE HCL 10 MG CAPSULE PO ONE (05:00)
[2019-11-19] MEDS ORDERED: METHADONE HCL 5 MG TABLET (FOR DETOX USE ONLY) PO ONE ×2 (06:00)
== END 2019-11-16 10:20 | disposition left against medical advice (07) | DRG 770 ==
LOC: YASAS 09:10 → Y6N 12:12
PROVIDERS: ADMIT Allergy & Immunology; ATTEND Allergy & Immunology
PROC: HZ2ZZZZ Detoxification Services for Substance Abuse Treatment (ICD-10-PCS; principal; 2019-11-14)
DX: F10.230 Alcohol dependence with withdrawal, uncomplicated (principal); F11.23 Opioid dependence with withdrawal; F14.20 Cocaine dependence, uncomplicated; F16.20 Hallucinogen dependence, uncomplicated; F12.20 Cannabis dependence, uncomplicated; F19.20 Other psychoactive substance dependence, uncomplicated; F17.210 Nicotine dependence, cigarettes, uncomplicated; F25.9 Schizoaffective disorder, unspecified; F19.280 Other psychoactive substance dependence with psychoactive substance-induced anxiety disorder; F19.282 Other psychoactive substance dependence with psychoactive substance-induced sleep disorder; F19.24 Other psychoactive substance dependence with psychoactive substance-induced mood disorder; F43.10 Post-traumatic stress disorder, unspecified; F31.9 Bipolar disorder, unspecified; I10 Essential (primary) hypertension; K21.9 Gastro-esophageal reflux disease without esophagitis; E78.5 Hyperlipidemia, unspecified; M54.5 Low back pain; K86.9 Disease of pancreas, unspecified; Z62.810 Personal history of physical and sexual abuse in childhood; Z91.410 Personal history of adult physical and sexual abuse; Z91.018 Allergy to other foods; Z91.5 Personal history of self-harm; Z91.012 Allergy to eggs; Z56.0 Unemployment, unspecified; Z59.0 Homelessness; S63.502A Unspecified sprain of left wrist, initial encounter; S93.402A Sprain of unspecified ligament of left ankle, initial encounter; X58.XXXA Exposure to other specified factors, initial encounter; Y93.89 Activity, other specified; Y92.89 Other specified places as the place of occurrence of the external cause; Y99.8 Other external cause status
CPT/HCPCS: 36415; 86593; Q0162